=== PATIENT | female | born 1955 | race Caucasian/White ===

== ENCOUNTER 2016-08-18 17:47 | Emergency (ER) | payer BC ==
--- NOTE | 2016-08-18 20:15 | ED ---
General Adult HPI - General Chief complaint: Extremity Problem,Nontraumatic Stated complaint: leg pain, poss blood clot Time Seen by Provider: 08/18/16 19:48 Source: patient, family, RN notes reviewed Mode of arrival: ambulatory Limitations: no limitations - History of Present Illness Initial comments: Chief complaint history of present illness this is a 60-year-old female here with complaint of discomfort to her varicose vein on the left anterior surface. She had chronic varicosities over many years. He was talkative areas vascular surgeons to suggest just that she use compression stockings. Is no bleeding. Just localized discomfort. - Related Data Home Medications Medication Instructions Recorded Confirmed Atorvastatin [Lipitor] 20 mg PO HS 10/08/15 08/18/16 Ibuprofen [Motrin] 800 mg PO TID PRN 10/08/15 08/18/16 Levothyroxine Sodium [Tirosint] 50 mcg PO QAM 10/08/15 08/18/16 Valsartan/Hydrochlorothiazide 1 tab PO DAILY 10/08/15 08/18/16 [Diovan Hct 80-12.5 mg Tablet] Verapamil HCl [Verapamil ER] 240 mg PO DAILY 10/08/15 08/18/16 Cholecalciferol [Vitamin D3] 5,000 unit PO DAILY 08/18/16 08/18/16 Glucosamine Sulfate 1,500 mg PO DAILY 08/18/16 08/18/16 Methylsulfonylmethane [MSM] 1,500 mg PO DAILY 08/18/16 08/18/16 Homer-3 Fatty Acids/Fish Oil [Fish 1 cap PO DAILY 08/18/16 08/18/16 Oil 1,000 mg Softgel] Turmeric Root Extract [Turmeric] 500 mg PO DAILY 08/18/16 08/18/16 Ubidecarenone [Co Q-10] 100 mg PO DAILY 08/18/16 08/18/16 Women's [employer] And 1 tab PO BID 08/18/16 08/18/16 Metabolism Allergies Allergy/AdvReac Type Severity Reaction Status Date / Time Iodinated Contrast Media - Allergy Anaphylaxis Verified 08/18/16 19:02 Oral and [Iodinated Contrast Media - IV Dye] Penicillins Allergy Unknown Verified 08/18/16 19:02 Childhood acetaminophen [From Vicodin] AdvReac dizzyness, Verified 08/18/16 19:02 flushed hydrocodone bitartrate AdvReac dizzyness, Verified 08/18/16 19:02 [From Vicodin] flushed Review of Systems ROS Statement: Those systems with pertinent positive or pertinent negative responses have been documented in the HPI. Review of systems patient has no other complaints of headache chest pain shortness breath GI/ problems at this time. All systems are reviewed. Past medical problems significant for COPD she still a smoker trying to stop. Hyperlipidemia, hypertension and hypothyroidism now and back and knee pain. 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 She's also had tonsillectomy. Patient's had partial thyroidectomy. Family history significant for colon cancer brother and cousin. She states she does get her frequent regular colonoscopies. . ALLERGIES include iodinated contrast material penicillin and hydrocodone. she does smoke strongly encouraged encouraged to stop. Denies alcohol use. The patient's ROS Other: All systems not noted in ROS Statement are negative. Past Medical History Past Medical History: COPD, Hyperlipidemia, Hypertension, Thyroid Disorder Additional Past Medical History / Comment(s): BACK AND KNEE PAIN History of Any Multi-Drug Resistant Organisms: None Reported Past Surgical History: Breast Surgery, Hysterectomy, Orthopedic Surgery, Tonsillectomy Additional Past Surgical History / Comment(s): RT KNEE ARTHROSCOPY, BREAST BIOPSYx2, PARTIAL THYROIDECTOMY Additional Past Anesthesia/Blood Transfusion Reaction / Comment(s): "GET'S REALLY DIZZY" HAD TO STAY LONGER IN POST OP Past Psychological History: No Psychological Hx Reported Smoking Status: Current every day smoker Past Alcohol Use History: Rare Additional Past Alcohol Use History / Comment(s): STARTED SMOKING AT AGE 16, ON AND OFF, 1PPD Past Drug Use History: None Reported General Exam - General Exam Comments Initial Comments: General: The patient is awake and alert, in no distress, and does not appear acutely ill. Complains of painful superficial varicosities right lower leg. Vital signs are temperature 97.8 pulse 70 her story 20 pulse ox 90% room air blood pressure 142/79. Elevated systolic noted. Patient be advised to follow-up with family physician. And continue her antihypertensive medications. The neck is supple, there is no tenderness or JVD. Cardiovascular: There is a regular rate and rhythm. No murmur, rub or gallop is appreciated. Respiratory: Lungs are clear to auscultation, respirations are non-labored, breath sounds are equal. No wheezes, stridor, rales, or rhonchi. Musculoskeletal: Patient has long-standing varicosities to both legs especially the right lower leg. All are superficial no evidence of any thrombosis. None are bleeding. Just tender. No evidence of DVT negative Homans sign. The patient will be advised to talk to a vascular surgeon for vein stripping. Limitations: no limitations Course Vital Signs 08/18/16 18:59 Temperature 97.8 F Pulse Rate 70 Respiratory 20 Rate Blood Pressure 142/79 O2 Sat by Pulse 98 Oximetry Medical Decision Making - Medical Decision Making Use cool compresses or warm compresses were makes you feel more comfortable. Continue with the ibuprofen. Stop smoking soon as he can. Follow-up with vascular surgery for evaluation of vein stripping. Disposition Clinical Impression: Superficial phlebitis of right leg Disposition: HOME SELF-CARE Condition: Stable Instructions: Superficial Thrombophlebitis (ED) Additional Instructions: Elevate compression stockings. Ibuprofen. Follow-up with vascular surgeon for evaluation for pain stripping. Time of Disposition: 20:15
[2016-08-18 20:20] VITALS: BP 133/75; PULSE 78; RESP 18; TEMP 98
== END 2016-08-18 20:27 | disposition home or self-care (01) ==
LOC: EC 17:47
DX: I80.01 Phlebitis and thrombophlebitis of superficial vessels of right lower extremity (principal); J44.9 Chronic obstructive pulmonary disease, unspecified; E78.5 Hyperlipidemia, unspecified; I10 Essential (primary) hypertension; E03.9 Hypothyroidism, unspecified; F17.200 Nicotine dependence, unspecified, uncomplicated; Z79.899 Other long term (current) drug therapy; Z91.041 Radiographic dye allergy status; Z88.0 Allergy status to penicillin; Z88.5 Allergy status to narcotic agent
CPT/HCPCS: 99282

== ENCOUNTER 2017-01-02 21:44 | Emergency (ER) | payer BC ==
[2017-01-03] MEDS ORDERED: IBUPROFEN 400 MG TAB PO STA (00:04)
[2017-01-03] MEDS ORDERED: OXYMETAZOLINE 0.05% NASL SPRAY 15 ML NASAL STA (00:04)
[2017-01-03] MEDS ORDERED: predniSONE 20 MG TAB PO STA (00:04)
--- NOTE | 2017-01-03 00:09 | ED ---
URI HPI - General Chief Complaint: Upper Respiratory Infection Stated Complaint: Congestion Time Seen by Provider: 01/02/17 23:55 Source: patient Mode of arrival: ambulatory Limitations: no limitations - History of Present Illness Initial Comments: This patient is a 61-year-old woman who presents to be evaluated for facial pressure, congestion, coughing. She states that she was in her usual state of health until Tuesday when she started developing some congestion and a little bit of drainage. She tried taking an antihistamine but things have not been helping. Today the facial pressure became severe so she decided to be seen here. Patient states that the pressure is currently moderate intensity it has improved from a 10 to 5. MD Complaint: cough, nasal congestion Onset/Timin -: days(s) Severity: moderate Quality: aching Consistency: constant Improves With: nothing Worsens With: nothing Associated Symptoms: nasal congestion, cough Treatments Prior to Arrival: other - Related Data Home Medications Medication Instructions Recorded Confirmed Atorvastatin [Lipitor] 20 mg PO HS 10/08/15 01/02/17 Ibuprofen [Motrin] 800 mg PO TID PRN 10/08/15 01/02/17 Levothyroxine Sodium [Tirosint] 50 mcg PO QAM 10/08/15 01/02/17 Valsartan/Hydrochlorothiazide 1 tab PO DAILY 10/08/15 01/02/17 [Diovan Hct 80-12.5 mg Tablet] Verapamil HCl [Verapamil ER] 240 mg PO DAILY 10/08/15 01/02/17 Albuterol Sulfate [Ventolin HFA] 01/02/17 Fluticasone/Salmeterol [Advair Hfa 2 puff INHALATION BID 01/02/17 01/02/17 115-21 Mcg Inhaler] Previous Rx's Medication Instructions Recorded Azithromycin [Zithromax Z-pack] 250 mg PO DIRECTED #6 tab 01/03/17 predniSONE 60 mg PO DAILY #30 tab 01/03/17 Allergies Allergy/AdvReac Type Severity Reaction Status Date / Time Iodinated Contrast Media - Allergy Anaphylaxis Verified 08/18/16 19:02 Oral and [Iodinated Contrast Media - IV Dye] Penicillins Allergy Unknown Verified 08/18/16 19:02 Childhood acetaminophen [From Vicodin] AdvReac dizzyness, Verified 08/18/16 19:02 flushed hydrocodone bitartrate AdvReac dizzyness, Verified 08/18/16 19:02 [From Vicodin] flushed Review of Systems ROS Statement: Those systems with pertinent positive or pertinent negative responses have been documented in the HPI. ROS Other: All systems not noted in ROS Statement are negative. Constitutional: Denies: fever, chills Eyes: Denies: eye pain, vision change ENT: Reports: congestion. Denies: ear pain, throat pain, dental pain, hearing loss, epistaxis Respiratory: Reports: cough. Denies: dyspnea, wheezes Cardiovascular: Denies: chest pain, palpitations Gastrointestinal: Denies: abdominal pain, vomiting Musculoskeletal: Denies: back pain Skin: Denies: rash Neurological: Reports: as per HPI, headache. Denies: weakness, numbness, paresthesias, confusion Past Medical History Past Medical History: COPD, Hyperlipidemia, Hypertension, Thyroid Disorder Additional Past Medical History / Comment(s): BACK AND KNEE PAIN History of Any Multi-Drug Resistant Organisms: None Reported Past Surgical History: Breast Surgery, Hysterectomy, Orthopedic Surgery, Tonsillectomy Additional Past Surgical History / Comment(s): RT KNEE ARTHROSCOPY, BREAST BIOPSYx2, PARTIAL THYROIDECTOMY Additional Past Anesthesia/Blood Transfusion Reaction / Comment(s): "GET'S REALLY DIZZY" HAD TO STAY LONGER IN POST OP Past Psychological History: No Psychological Hx Reported Smoking Status: Current every day smoker Past Alcohol Use History: Rare Past Drug Use History: None Reported General Exam Limitations: no limitations General appearance: alert, in no apparent distress Head exam: Present: atraumatic, normocephalic Eye exam: Present: normal appearance. Absent: scleral icterus, conjunctival injection ENT exam: Present: normal oropharynx, mucous membranes moist, other (Congestion terminal) Neck exam: Present: normal inspection, full ROM, lymphadenopathy. Absent: tenderness, meningismus Respiratory exam: Present: normal lung sounds bilaterally. Absent: respiratory distress, wheezes, rales, rhonchi, stridor Cardiovascular Exam: Present: regular rate, normal rhythm, normal heart sounds. Absent: systolic murmur, diastolic murmur, rubs, gallop GI/Abdominal exam: Present: soft. Absent: tenderness, guarding, rebound Extremities exam: Present: normal inspection, normal capillary refill. Absent: pedal edema, calf tenderness Neurological exam: Present: alert Skin exam: Present: warm, dry, intact, normal color. Absent: rash Course Vital Signs 01/02/17 22:02 Temperature 99.8 F H Pulse Rate 82 Respiratory 20 Rate Blood Pressure 136/73 O2 Sat by Pulse 97 Oximetry Disposition Clinical Impression: Sinusitis, Pneumonia Disposition: HOME SELF-CARE Condition: Good Instructions: Rhinosinusitis (ED), Pneumonia (ED) Prescriptions: Azithromycin [Zithromax Z-pack] 250 mg PO DIRECTED #6 tab predniSONE 60 mg PO DAILY #30 tab Referrals: Saloni Juárez MD [Primary Care Provider] - 1-2 days
--- NOTE | 2017-01-03 00:49 | XR ---
EXAM: XR Chest, 2 Views CLINICAL HISTORY: Reason: cough TECHNIQUE: Frontal and lateral views of the chest. COMPARISON: No relevant prior studies available. FINDINGS: Lungs: Mild opacity in the right middle lobe. Pleural space: Unremarkable. No pneumothorax. Heart: Unremarkable. No cardiomegaly. Mediastinum: Unremarkable. Bones/joints: Unremarkable. IMPRESSION: Mild opacity in the right middle lobe may be developing pneumonia.
[2017-01-03] MEDS ORDERED: AZITHROMYCIN 500 MG TAB PO STA (01:23)
[2017-01-03 01:37] VITALS: BP 118/62; PULSE 64; RESP 16; TEMP 98
== END 2017-01-03 01:35 | disposition home or self-care (01) ==
LOC: EC 21:44
DX: J18.9 Pneumonia, unspecified organism (principal); J32.9 Chronic sinusitis, unspecified; J44.9 Chronic obstructive pulmonary disease, unspecified; E78.5 Hyperlipidemia, unspecified; I10 Essential (primary) hypertension; E07.9 Disorder of thyroid, unspecified; F17.200 Nicotine dependence, unspecified, uncomplicated; Z88.0 Allergy status to penicillin; Z88.5 Allergy status to narcotic agent; Z91.041 Radiographic dye allergy status; Z79.51 Long term (current) use of inhaled steroids; Z79.899 Other long term (current) drug therapy
CPT/HCPCS: 99283; 71020; J7512

== ENCOUNTER → 2017-02-10 | Outpatient (CLI) | payer BC ==
--- NOTE | 2017-02-10 11:57 | MM ---
Reason for exam: follow-up at short interval from prior study. Last mammogram was performed 6 months ago. History: Patient is postmenopausal and is nulliparous. Family history of breast cancer in paternal grandmother at age 80. Benign stereotactic core biopsy of the left breast, July 2016. Took estrogen for 2 years. Physical Findings: Nurse did not find any significant physical abnormalities on exam. MG Diagnostic Mammo LT w CAD CC and MLO view(s) were taken of the left breast. Prior study comparison: July 29, 2016, mammogram. July 22, 2015, mammogram. There are scattered fibroglandular densities. Previous mammotome biopsy in the left breast. Asymmetric breast tissue in the left breast upper quadrant, stable. There is no discrete abnormality. These results were verbally communicated with the patient and result sheet given to the patient on 02/10/17. ASSESSMENT: Benign, BI-RAD 2 RECOMMENDATION: Routine screening mammogram of both breasts in 6 months. Back on schedule for July 2017.
== END | disposition home or self-care (01) ==
LOC: RADMAMWWP 11:04
PROVIDERS: ATTEND Surgery
DX: R92.8 Other abnormal and inconclusive findings on diagnostic imaging of breast (principal)

== ENCOUNTER → 2017-04-22 | Outpatient (CLI) | payer BC ==
[2017-04-22 10:47] LABS: Basophils # (A) 0.1 k/uL (0-0.2); Basophils % (A) 1 %; CH 30.3; Eosinophils # (A) 0.1 k/uL (0-0.7); Eosinophils % (A) 1 %; HCT 45.8 % (34.0-46.0); HDW 2.63; HGB 14.9 gm/dL (11.4-16.0); Luc % (Auto) 2; Lymphocytes # (A) 2.2 k/uL (1.0-4.8); Lymphocytes % (A) 24 %; MCHC 32.5 g/dL (31.0-37.0); MCV 92.3 fL (80.0-100.0); Mean Platelet Volume 7.6; Monocytes # (A) 0.4 k/uL (0-1.0); Monocytes % (A) 5 %; Neutrophils % (A) 67 %; RBC 4.96 m/uL (3.80-5.40); RDW 13.5 % (11.5-15.5); WBC (Perox) 9.38
[2017-04-22 10:53] LABS: ALT 42 U/L (9-52); AST 26 U/L (14-36); Alkaline Phosphatase 81 U/L (38-126); Anion Gap 11 mmol/L; Blood Urea Nitrogen 13 mg/dL (7-17); Calcium 9.9 mg/dL (8.4-10.2); Carbon Dioxide 25 mmol/L (22-30); Chloride 104 mmol/L (98-107); Cholesterol 253 mg/dL (<200); Glucose 109 mg/dL (74-99); HDL Cholesterol 60 mg/dL (40-60); Non-African American GFR(MDRD) >60 (>60 ml/min/1.73 sqM); Potassium 4.3 mmol/L (3.5-5.1); Sodium 140 mmol/L (137-145); Total Bilirubin 0.8 mg/dL (0.2-1.3); Total Protein 7.4 g/dL (6.3-8.2)
[2017-04-22 15:02] LABS: Hemoglobin A1C 6.1 % (4.2-6.1)
== END | disposition home or self-care (01) ==
LOC: LABWHC1 09:56
PROVIDERS: ATTEND Internal Medicine
DX: E78.5 Hyperlipidemia, unspecified (principal); I10 Essential (primary) hypertension
CPT/HCPCS: 36415; 80053; 80061; 83036; 84439; 84443; 85025

== ENCOUNTER → 2018-04-20 | Outpatient (CLI) | payer BC ==
--- NOTE | 2018-04-21 13:37 | MM ---
Reason for exam: screening (asymptomatic). Last mammogram was performed 1 year and 2 months ago. History: Patient is postmenopausal and is nulliparous. Family history of breast cancer in paternal grandmother at age 80. Benign stereotactic core biopsy of the left breast, July 2016. Took estrogen for 2 years. Physical Findings: A clinical breast exam by your physician is recommended on an annual basis and results should be correlated with mammographic findings. MG Screening Mammo w CAD Bilateral CC and MLO view(s) were taken. Prior study comparison: February 10, 2017, left breast MG diagnostic mammo LT w CAD. July 29, 2016, mammogram. There are scattered fibroglandular densities. There is a right anterior depth lower inner quadrant mass. No suspicious abnormality in the left breast. ASSESSMENT: Incomplete: need additional imaging evaluation, BI-RAD 0 RECOMMENDATION: Ultrasound of the right breast. [facility] will attempt to contact patient to return for ultrasound.
== END | disposition home or self-care (01) ==
LOC: RADMAMWWP 09:11
PROVIDERS: ATTEND Internal Medicine
DX: Z12.31 Encounter for screening mammogram for malignant neoplasm of breast (principal); Z80.3 Family history of malignant neoplasm of breast
CPT/HCPCS: 77067

== ENCOUNTER → 2018-05-01 | Outpatient (CLI) | payer BC ==
--- NOTE | 2018-05-01 11:35 | USB ---
Reason for exam: additional evaluation requested from abnormal screening. History: Patient is postmenopausal and is nulliparous. Family history of breast cancer in paternal grandmother at age 80. Benign stereotactic core biopsy of the left breast, July 2016. Took estrogen for 2 years. Physical Findings: Nurse did not find any significant physical abnormalities on exam. US Breast Workup Limited RT Right limited breast ultrasound including focal area of concern, retroareolar and axilla demonstrates no cystic or solid lesion seen. 6 month follow up recommended. Scanned 3-6 o'clock at the site of mammographic abnormality. These results were verbally communicated with the patient and result sheet given to the patient on 05/01/18. ASSESSMENT: Probably benign, BI-RAD 3 RECOMMENDATION: Follow-up diagnostic mammogram of the right breast in 6 months.
== END | disposition home or self-care (01) ==
LOC: RADUSWWP 09:49
PROVIDERS: ATTEND Internal Medicine
DX: R92.8 Other abnormal and inconclusive findings on diagnostic imaging of breast (principal)

== ENCOUNTER → 2018-05-08 | Outpatient (CLI) | payer BC ==
[2018-05-08 13:03] LABS: ALT 58 U/L (9-52); AST 32 U/L (14-36); Albumin 4.4 g/dL (3.5-5.0); Alkaline Phosphatase 62 U/L (38-126); Anion Gap 7 mmol/L; Blood Urea Nitrogen 16 mg/dL (7-17); Calcium 10.2 mg/dL (8.4-10.2); Carbon Dioxide 25 mmol/L (22-30); Chloride 106 mmol/L (98-107); Cholesterol 292 mg/dL (<200); Glucose 107 mg/dL (74-99); HDL Cholesterol 69 mg/dL (40-60); LDL Cholesterol,Calculated 163 mg/dL (0-99); Potassium 4.2 mmol/L (3.5-5.1); Sodium 138 mmol/L (137-145); Total Bilirubin 0.6 mg/dL (0.2-1.3); Total Protein 7.1 g/dL (6.3-8.2); Triglycerides 300 mg/dL (<150)
== END | disposition home or self-care (01) ==
LOC: LABWHC1 10:54
PROVIDERS: ATTEND Internal Medicine
DX: E78.5 Hyperlipidemia, unspecified (principal)
CPT/HCPCS: 36415; 80053; 80061

== ENCOUNTER 2018-05-11 21:58 | Inpatient (IN) | payer BC ==
[2018-05-11] MEDS ORDERED: SODIUM CHLORIDE 0.9% 1,000 ML IV STA (22:05)
--- NOTE | 2018-05-11 22:31 | ED ---
General Adult HPI - General Chief complaint: Chest Pain Stated complaint: CHEST PAIN Source: patient Mode of arrival: EMS Limitations: no limitations - History of Present Illness Initial comments: Dictation was produced using [employer] dictation software. please excuse any grammatical, word or spelling errors. Chief Complaint: 62-year-old female with past medical history of COPD , hyperlipidemia, hypertension, thyroid disease presents with chest pain. History of Present Illness: 62-year-old female presents with chest pain. Patient was a severe argument with her family she states that her symptoms started then. She then began expressing severe chest pain. Also has to going to her fingers. Reports that patient was tachycardic. They saw on prehospital EKG that she had H or for ablation rapid ventricular rate. Patient states the pain is much better with the nitroglycerin and aspirin that was given. Patient denies any extremity symptoms. Patient denies a history of coronary artery disease. The ROS documented in this emergency department record has been reviewed and confirmed by me. Those systems with pertinent positive or negative responses have been documented in the HPI. All other systems are other negative and/or noncontributory. - Related Data Home Medications Medication Instructions Recorded Confirmed Levothyroxine Sodium [Tirosint] 50 mcg PO QAM 10/08/15 05/11/18 Verapamil HCl [Verapamil ER] 240 mg PO DAILY 10/08/15 05/11/18 Aspirin EC [Ecotrin Low Dose] 81 mg PO DAILY 05/11/18 05/11/18 Cholecalciferol [Vitamin D3] 1,000 unit PO DAILY 05/11/18 05/11/18 Fenofibrate Nanocrystallized 145 mg PO DAILY 05/11/18 05/11/18 [Fenofibrate] Glucosam/Jadiel-Msm1/C/Keith/Bosw 1 tab PO DAILY 05/11/18 05/11/18 [Glucosamine-Chondroitin Tablet] Ibuprofen [Motrin] 800 mg PO TID PRN 05/11/18 05/11/18 Losartan-Hctz 50-12.5 mg [Hyzaar 1 tab PO DAILY 05/11/18 05/11/18 50-12.5] Magnesium 200 mg PO DAILY 05/11/18 05/11/18 Multivitamin,Therapeutic [Thera] 1 tab PO DAILY 05/11/18 05/11/18 [place]-3 Fatty Acids/Fish Oil [Fish 1 cap PO DAILY 05/11/18 05/11/18 Oil 1,000 mg Softgel] Vitamin B Complex 1 cap PO DAILY 05/11/18 05/11/18 Allergies Allergy/AdvReac Type Severity Reaction Status Date / Time Iodinated Contrast- Oral and Allergy Anaphylaxis Verified 05/11/18 22:45 IV Dye [Iodinated Contrast Media - IV Dye] Penicillins Allergy Unknown Verified 05/11/18 22:45 Childhood acetaminophen [From Vicodin] AdvReac dizzyness, Verified 05/11/18 22:45 flushed hydrocodone bitartrate AdvReac dizzyness, Verified 05/11/18 22:45 [From Vicodin] flushed Review of Systems ROS Statement: Those systems with pertinent positive or pertinent negative responses have been documented in the HPI. ROS Other: All systems not noted in ROS Statement are negative. Past Medical History Past Medical History: COPD, Hyperlipidemia, Hypertension, Thyroid Disorder Additional Past Medical History / Comment(s): BACK AND KNEE PAIN History of Any Multi-Drug Resistant Organisms: None Reported Past Surgical History: Breast Surgery, Hysterectomy, Orthopedic Surgery, Tonsillectomy Additional Past Surgical History / Comment(s): RT KNEE ARTHROSCOPY, BREAST BIOPSYx2, PARTIAL THYROIDECTOMY Additional Past Anesthesia/Blood Transfusion Reaction / Comment(s): "GET'S REALLY DIZZY" HAD TO STAY LONGER IN POST OP Past Psychological History: No Psychological Hx Reported Smoking Status: Current every day smoker Past Alcohol Use History: Rare Past Drug Use History: None Reported General Exam - General Exam Comments Initial Comments: PHYSICAL EXAM: General Impression: Alert and oriented x3, not in acute distress HEENT: Normocephalic atraumatic, extra-ocular movements intact, pupils equal and reactive to light bilaterally, mucous membranes moist. Cardiovascular: Tachycardic and irregular Chest: Lungs clear to auscultation bilaterally, no rhonchi, no wheeze, no rales Abdomen: Bowel sounds present, abdomen soft, non-tender, non-distended, no organomegaly Musculoskeletal: Pulses present and equal in all extremities, no peripheral edema Motor: Power 5/5 bilaterally, no focal deficits noted Neurological: CN II-XII grossly intact, no focal motor or sensory deficits noted Skin: Intact with no visualized rashes Psych: Normal affect and mood Limitations: no limitations Course Vital Signs 05/11/18 22:05 Temperature 97.4 F L Pulse Rate 133 H Respiratory 24 Rate Blood Pressure 138/97 O2 Sat by Pulse 97 Oximetry Medical Decision Making - Medical Decision Making ED course: 62-year-old female with multiple comorbidities presents with chest pain. Prehospital EKG shows atrial for ablation rapid ventricular rate. Repeat EKG showed A. fib with RVR. Vital signs upon arrival shows heart rate of 133, rest of vital signs within normal limits. She denies a history of atrial fibrillation. At this point is unclear when patient symptoms started. She states that she did feel a little symptomatic when she was in an argument today. This point it is not clear when her symptoms initially started. I also comfortable cardioverting her given that she would likely benefit from a MISTY to rule out atrial clot. She started on Coumadin and heparin.Laboratory evaluation obtained. CBC unremarkable. Coag panel is unremarkable. D-dimer is negative. Metabolic panel shows glucose of 146. Mild hypokalemia of 3.4. Cardiac enzymes are negative. Chest x-ray was obtained showing no acute processes. Patient be admitted to internal medicine of [facility]. Her breathing treatment. Patient evaluated by cardiology for further intervention. EKG Interpretation: A 12 lead EKG was obtained. It was interpreted by myself and attending physician. There is a P wave before every QRS complex. Rate is 119. Rhythm is H fibrillation with RVR, QRS 80, QTC 481. QT is not prolonged. No ST segment depression or elevation. - Lab Data Result diagrams: 05/11/18 22:29 05/11/18 22:29 Lab Results 05/11/18 05/11/18 05/11/18 Range/Units 22:29 22:29 22:29 WBC 7.8 (3.8-10.6) k/uL RBC 4.78 (3.80-5.40) m/uL Hgb 14.0 (11.4-16.0) gm/dL Hct 42.4 (34.0-46.0) % MCV 88.8 (80.0-100.0) fL MCH 29.4 (25.0-35.0) pg MCHC 33.1 (31.0-37.0) g/dL RDW 13.3 (11.5-15.5) % Plt Count 263 (150-450) k/uL Neutrophils % 60 % Lymphocytes % 31 % Monocytes % 4 % Eosinophils % 2 % Basophils % 1 % Neutrophils # 4.7 (1.3-7.7) k/uL Lymphocytes # 2.4 (1.0-4.8) k/uL Monocytes # 0.3 (0-1.0) k/uL Eosinophils # 0.2 (0-0.7) k/uL Basophils # 0.1 (0-0.2) k/uL Manual Slide Review Performed PT (9.0-12.0) sec INR (<1.2) APTT (22.0-30.0) sec D-Dimer (<0.60) mg/L FEU Sodium 138 (137-145) mmol/L Potassium 3.4 L (3.5-5.1) mmol/L Chloride 107 (98-107) mmol/L Carbon Dioxide 22 (22-30) mmol/L Anion Gap 9 mmol/L BUN 26 H (7-17) mg/dL Creatinine 0.68 (0.52-1.04) mg/dL Est GFR (CKD-EPI)AfAm >90 (>60 ml/min/1.73 sqM) Est GFR (CKD-EPI)NonAf >90 (>60 ml/min/1.73 sqM) Glucose 146 H (74-99) mg/dL Calcium 9.7 (8.4-10.2) mg/dL Magnesium 2.0 (1.6-2.3) mg/dL Total Bilirubin 0.5 (0.2-1.3) mg/dL AST 40 H (14-36) U/L ALT 60 H (9-52) U/L Alkaline Phosphatase 63 (38-126) U/L Total Creatine Kinase 86 (30-135) U/L CK-MB (CK-2) 0.8 (0.0-2.4) ng/mL CK-MB (CK-2) Rel Index 0.9 Troponin I 0.013 (0.000-0.034) ng/mL Total Protein 6.7 (6.3-8.2) g/dL Albumin 4.1 (3.5-5.0) g/dL 05/11/18 Range/Units 22:29 WBC (3.8-10.6) k/uL RBC (3.80-5.40) m/uL Hgb (11.4-16.0) gm/dL Hct (34.0-46.0) % MCV (80.0-100.0) fL MCH (25.0-35.0) pg MCHC (31.0-37.0) g/dL RDW (11.5-15.5) % Plt Count (150-450) k/uL Neutrophils % % Lymphocytes % % Monocytes % % Eosinophils % % Basophils % % Neutrophils # (1.3-7.7) k/uL Lymphocytes # (1.0-4.8) k/uL Monocytes # (0-1.0) k/uL Eosinophils # (0-0.7) k/uL Basophils # (0-0.2) k/uL Manual Slide Review PT 9.7 (9.0-12.0) sec INR 1.0 (<1.2) APTT 22.4 (22.0-30.0) sec D-Dimer 0.37 (<0.60) mg/L FEU Sodium (137-145) mmol/L Potassium (3.5-5.1) mmol/L Chloride (98-107) mmol/L Carbon Dioxide (22-30) mmol/L Anion Gap mmol/L BUN (7-17) mg/dL Creatinine (0.52-1.04) mg/dL Est GFR (CKD-EPI)AfAm (>60 ml/min/1.73 sqM) Est GFR (CKD-EPI)NonAf (>60 ml/min/1.73 sqM) Glucose (74-99) mg/dL Calcium (8.4-10.2) mg/dL Magnesium (1.6-2.3) mg/dL Total Bilirubin (0.2-1.3) mg/dL AST (14-36) U/L ALT (9-52) U/L Alkaline Phosphatase (38-126) U/L Total Creatine Kinase (30-135) U/L CK-MB (CK-2) (0.0-2.4) ng/mL CK-MB (CK-2) Rel Index Troponin I (0.000-0.034) ng/mL Total Protein (6.3-8.2) g/dL Albumin (3.5-5.0) g/dL Disposition Clinical Impression: New onset a-fib Disposition: ADMITTED IP TO THIS HOSP Condition: Fair Referrals: Saloni Juárez MD [Primary Care Provider] - 1-2 days Decision Time: 00:29
[2018-05-11] MEDS ORDERED: HEPARIN SODIUM,PORCINE 5,000 UNIT/ML 1 ML VIAL IV PRN ×2 (22:35→22:41)
[2018-05-11] MEDS ORDERED: HEPARIN SODIUM,PORCINE 10,000 UNIT/ML 1 ML VIAL IV ONE (22:35)
[2018-05-11 22:40] LABS: Basophils # (A) 0.1 k/uL (0-0.2); Basophils % (A) 1 %; Eosinophils # (A) 0.2 k/uL (0-0.7); Eosinophils % (A) 2 %; HCT 42.4 % (34.0-46.0); Lymphocytes # (A) 2.4 k/uL (1.0-4.8); Lymphocytes % (A) 31 %; MCH 29.4 pg (25.0-35.0); MCHC 33.1 g/dL (31.0-37.0); MCV 88.8 fL (80.0-100.0); Mean Platelet Volume 7.3; Monocytes # (A) 0.3 k/uL (0-1.0); Monocytes % (A) 4 %; Neutrophils # (A) 4.7 k/uL (1.3-7.7); Neutrophils % (A) 60 %; Platelet Count 263 k/uL (150-450); RBC 4.78 m/uL (3.80-5.40); RDW 13.3 % (11.5-15.5); WBC 7.8 k/uL (3.8-10.6)
[2018-05-11] MEDS ORDERED: HEPARIN SODIUM,PORCINE 5,000 UNIT/ML 1 ML VIAL IV ONE (22:41)
[2018-05-11] MEDS ORDERED: DILTIAZEM 50 MG in SODIUM CHLORIDE 0.9% 40 ML IV SCH (22:45)
[2018-05-11] MEDS ORDERED: HEPARIN SOD,PORK IN 0.45% NACL 25,000 UNIT in 0.45% NACL 1 500ML.BAG IV SCH ×2 (22:45)
[2018-05-11 22:52] LABS: ALT 60 U/L (9-52); AST 40 U/L (14-36); Albumin 4.1 g/dL (3.5-5.0); Alkaline Phosphatase 63 U/L (38-126); Anion Gap 9 mmol/L; Blood Urea Nitrogen 26 mg/dL (7-17); Calcium 9.7 mg/dL (8.4-10.2); Carbon Dioxide 22 mmol/L (22-30); Chloride 107 mmol/L (98-107); Glucose 146 mg/dL (74-99); Potassium 3.4 mmol/L (3.5-5.1); Sodium 138 mmol/L (137-145); Total Bilirubin 0.5 mg/dL (0.2-1.3); Total Protein 6.7 g/dL (6.3-8.2)
[2018-05-11 23:05] LABS: Creatine Kinase MB 0.8 ng/mL (0.0-2.4); Troponin I 0.013 ng/mL (0.000-0.034)
[2018-05-11 23:08] LABS: D-Dimer 0.37 mg/L FEU (<0.60); Partial Thromboplastin Time 22.4 sec (22.0-30.0); Prothrombin Time 9.7 sec (9.0-12.0)
--- NOTE | 2018-05-11 23:26 | XR ---
EXAMINATION TYPE: XR chest 2V DATE OF EXAM: 05/11/2018 COMPARISON: 04/22/2017 HISTORY: Chest pain TECHNIQUE: Frontal and lateral views of the chest are obtained. FINDINGS: Heart and mediastinum are normal. Lungs are clear. Diaphragm is normal. There are chest le ads. Bony thorax appears intact. IMPRESSION: Normal chest. No change.
[2018-05-12] MEDS ORDERED: NALOXONE 0.4 MG/ML 1 ML VIAL IV PRN (00:30)
[2018-05-12 03:02] VITALS: BMI 28.5
[2018-05-12 05:42] LABS: Basophils # (A) 0.1 k/uL (0-0.2); Basophils % (A) 1 %; Eosinophils # (A) 0.1 k/uL (0-0.7); Eosinophils % (A) 1 %; HCT 40.3 % (34.0-46.0); HGB 13.4 gm/dL (11.4-16.0); Lymphocytes # (A) 2.5 k/uL (1.0-4.8); Lymphocytes % (A) 28 %; MCH 29.8 pg (25.0-35.0); MCHC 33.3 g/dL (31.0-37.0); MCV 89.5 fL (80.0-100.0); Mean Platelet Volume 7.3; Monocytes # (A) 0.4 k/uL (0-1.0); Monocytes % (A) 5 %; Neutrophils # (A) 5.7 k/uL (1.3-7.7); Neutrophils % (A) 64 %; Platelet Count 263 k/uL (150-450); RDW 13.3 % (11.5-15.5); WBC 8.9 k/uL (3.8-10.6)
[2018-05-12] MEDS: SODIUM CHLORIDE 0.9% 1,000 ML IV SCH ×2 (06:24→06:57)
--- NOTE | 2018-05-12 08:21 | P.CRDCN ---
History of Present Illness Consult date: 05/12/18 Requesting physician: Urban Wu Consult reason: atrial fibrillation Chief complaint: Chest pain, palpitations, flushed feeling History of present illness: This is a 62-year-old female with history of hypertension, severe hyperlipidemia, COPD, nicotine dependence, hypothyroidism, family history of premature coronary artery disease, who presents to the hospital with symptoms of chest discomfort, palpitations, and flushed feeling. According to the patient, she was in the bad argument with her daughter, shortly thereafter developed midsternal chest discomfort that radiated over to the right side of her chest, apparently her fingers felt numb and tingly. She also felt palpitations at that time and felt extremely flushed for this reason EMS was called and the patient was brought to the hospital for further evaluation. Chest x-ray on arrival here was normal. EKG on arrival here showed atrial fibrillation with a heart rate of [address]-T wave changes noted. Blood pressure on arrival 138/90, heart rate 120, 97% on room air. The patient was given IV Cardizem and converted to normal sinus rhythm, remains in a normal sinus rhythm this morning. CBC is normal, d-dimer 0.3, sodium 138, potassium 3.4, BUN 26, creatinine 0.6. Initial troponin 0.03, subsequent troponin 0.242. AST 40, ALT 60. At the time of my examination this morning, patient is in a normal sinus rhythm, she denies any chest discomfort, no dizziness or lightheadedness, no palpitations. Past Medical History Past Medical History: Atrial Fibrillation, COPD, Hyperlipidemia, Hypertension, Thyroid Disorder Additional Past Medical History / Comment(s): BACK AND KNEE PAIN, new onset atrial fib History of Any Multi-Drug Resistant Organisms: None Reported Past Surgical History: Breast Surgery, Hysterectomy, Orthopedic Surgery, Tonsillectomy Additional Past Surgical History / Comment(s): RT KNEE ARTHROSCOPY, BREAST BIOPSYx2, PARTIAL THYROIDECTOMY Additional Past Anesthesia/Blood Transfusion Reaction / Comment(s): "GET'S REALLY DIZZY" HAD TO STAY LONGER IN POST OP Past Psychological History: No Psychological Hx Reported Smoking Status: Current every day smoker Past Alcohol Use History: Rare Additional Past Alcohol Use History / Comment(s): STARTED SMOKING AT AGE 16, ON AND OFF, 1PPD Past Drug Use History: None Reported - Past Family History Mother Family Medical History: Hypertension Additional Family Medical History / Comment(s): mitral valve repairs Medications and Allergies Home Medications Medication Instructions Recorded Confirmed Type Levothyroxine Sodium [Tirosint] 50 mcg PO QAM 10/08/15 05/11/18 History Verapamil HCl [Verapamil ER] 240 mg PO DAILY 10/08/15 05/11/18 History Aspirin EC [Ecotrin Low Dose] 81 mg PO DAILY 05/11/18 05/11/18 History Cholecalciferol [Vitamin D3] 1,000 unit PO DAILY 05/11/18 05/11/18 History Fenofibrate Nanocrystallized 145 mg PO DAILY 05/11/18 05/11/18 History [Fenofibrate] Glucosam/Jadiel-Msm1/C/Keith/Bosw 1 tab PO DAILY 05/11/18 05/11/18 History [Glucosamine-Chondroitin Tablet] Ibuprofen [Motrin] 800 mg PO TID PRN 05/11/18 05/11/18 History Losartan-Hctz 50-12.5 mg [Hyzaar 1 tab PO DAILY 05/11/18 05/11/18 History 50-12.5] Magnesium 200 mg PO DAILY 05/11/18 05/11/18 History Multivitamin,Therapeutic [Thera] 1 tab PO DAILY 05/11/18 05/11/18 History Dawson-3 Fatty Acids/Fish Oil [Fish 1 cap PO DAILY 05/11/18 05/11/18 History Oil 1,000 mg Softgel] Vitamin B Complex 1 cap PO DAILY 05/11/18 05/11/18 History Allergies Allergy/AdvReac Type Severity Reaction Status Date / Time Iodinated Contrast- Oral and Allergy Anaphylaxis Verified 05/11/18 22:45 IV Dye [Iodinated Contrast Media - IV Dye] Penicillins Allergy Unknown Verified 05/11/18 22:45 Childhood acetaminophen [From Vicodin] AdvReac dizzyness, Verified 05/11/18 22:45 flushed hydrocodone bitartrate AdvReac dizzyness, Verified 05/11/18 22:45 [From Vicodin] flushed Physical Exam Vitals: Vital Signs Temp Pulse Pulse Resp BP BP Pulse Ox 05/12/18 04:00 98.2 F 92 17 133/69 98 05/12/18 02:48 98.2 F 92 17 133/69 98 05/12/18 01:46 120 H 16 120/74 98 05/12/18 01:37 115 H 16 103/73 96 05/11/18 23:00 130 H 18 114/74 94 L 05/11/18 22:05 97.4 F L 133 H 24 138/97 97 Intake and Output 05/11/18 05/12/18 05/12/18 22:59 06:59 14:59 Intake Total 180.067 Balance 180.067 Intake: IV 10 Invasive Line 1 10 Intake, IV Titration 170.067 Amount Diltiazem 50 mg In Sodium 33.167 Chloride 0.9% 40 ml @ 5 MG/HR 5 mls/hr IV .Q10H JAYDA Rx#:[id number] Heparin Sod,Pork in 0.45% 136.9 NaCl 25,000 unit In 0.45 % NaCl 1 500ml.bag @ 10 UNITS/KG/HR 18.5 mls/hr IV .Q24H JAYDA Rx#: [id number] Other: Voiding Method Toilet # Voids 1 Weight 92.533 kg 92.9 kg PHYSICAL EXAMINATION: GENERAL: 62-year-old female in no acute distress at the time of my examination HEENT: Head is atraumatic, normocephalic. Pupils equal, round. Sclera anicteric. Conjunctiva are clear. Mucous membranes of the mouth are moist. Neck is supple. There is no elevated jugular venous pressure. No carotid bruit is heard. HEART EXAMINATION: Heart S1, S2 normal. No murmur or gallop heard. CHEST EXAMINATION: Lungs are clear to auscultation and precussion. No chest wall tenderness is noted on palpation or with deep breathing. ABDOMEN: Soft, nontender. Bowel sounds are heard. No organomegaly noted. EXTREMITIES: 2+ peripheral pulses with no evidence of peripheral edema and no calf tenderness noted. NEUROLOGIC patient is awake, alert and oriented x3 . Results 05/12/18 05:26 05/11/18 22:29 Cardiac Enzymes 05/11/18 05/11/18 05/12/18 Range/Units 22:29 22:29 05:26 AST 40 H (14-36) U/L CK-MB (CK-2) 0.8 (0.0-2.4) ng/mL Troponin I 0.013 0.242 H* (0.000-0.034) ng/mL Coagulation 05/11/18 05/12/18 Range/Units 22:29 05:26 PT 9.7 (9.0-12.0) sec APTT 22.4 32.7 H (22.0-30.0) sec CBC 05/11/18 05/12/18 Range/Units 22:29 05:26 WBC 7.8 8.9 (3.8-10.6) k/uL RBC 4.78 4.50 (3.80-5.40) m/uL Hgb 14.0 13.4 (11.4-16.0) gm/dL Hct 42.4 40.3 (34.0-46.0) % Plt Count 263 263 (150-450) k/uL Comprehensive Metabolic Panel 05/11/18 Range/Units 22:29 Sodium 138 (137-145) mmol/L Potassium 3.4 L (3.5-5.1) mmol/L Chloride 107 (98-107) mmol/L Carbon Dioxide 22 (22-30) mmol/L BUN 26 H (7-17) mg/dL Creatinine 0.68 (0.52-1.04) mg/dL Glucose 146 H (74-99) mg/dL Calcium 9.7 (8.4-10.2) mg/dL AST 40 H (14-36) U/L ALT 60 H (9-52) U/L Alkaline Phosphatase 63 (38-126) U/L Total Protein 6.7 (6.3-8.2) g/dL Albumin 4.1 (3.5-5.0) g/dL Current Medications Generic Name Dose Route Start Last Admin Trade Name Freq PRN Reason Stop Dose Admin Aspirin 81 mg 05/12/18 09:00 Aspirin PO DAILY JAYDA Heparin Sodium (Porcine) 0 unit 05/11/18 22:41 Heparin IV PER PROTOCOL PRN Low PTT Protocol Diltiazem HCl 50 mg/ Sodium 50 mls @ 5 mls/hr 05/11/18 22:45 05/12/18 05:35 Chloride IV 0 mg/hr .Q10H JAYDA 0 mls/hr Infusion 5 MG/HR Heparin Sodium/Sodium Chloride 500 mls @ 18.5 mls/hr 05/11/18 22:45 05/12/18 06:29 25,000 unit/ Sodium Chloride IV 13 units/kg/hr .Q24H JAYDA 24.05 mls/hr Titration Protocol 10 UNITS/KG/HR Sodium Chloride 1,000 mls @ 20 mls/hr 05/12/18 00:30 05/12/18 06:57 Saline 0.9% IV 20 mls/hr .Q24H JAYDA Administration Magnesium Oxide 200 mg 05/12/18 09:00 Mag-Ox PO DAILY JAYDA Naloxone HCl 0.2 mg 05/12/18 00:30 Narcan IV Q2M PRN Opioid Reversal Intake and Output 05/11/18 05/12/18 05/12/18 22:59 06:59 14:59 Intake Total 180.067 Balance 180.067 Intake: IV 10 Invasive Line 1 10 Intake, IV Titration 170.067 Amount Diltiazem 50 mg In Sodium 33.167 Chloride 0.9% 40 ml @ 5 MG/HR 5 mls/hr IV .Q10H JAYDA Rx#:[id number] Heparin Sod,Pork in 0.45% 136.9 NaCl 25,000 unit In 0.45 % NaCl 1 500ml.bag @ 10 UNITS/KG/HR 18.5 mls/hr IV .Q24H JAYDA Rx#: [id number] Other: Voiding Method Toilet # Voids 1 Weight 92.533 kg 92.9 kg 05/12/18 05:26 05/11/18 22:29 EKG Interpretations (text) EKG on admission showed atrial fibrillation with moderately rapid ventricular response and nonspecific ST-T wave changes Assessment and Plan Plan: Assessment and plan #1 atrial fibrillation with moderately rapid ventricular response, converted to normal sinus rhythm, paroxysmal, appears to be a new onset for the patient. #2 chest discomfort, could be secondary to the atrial fibrillation, troponins 0.013, 0.242. Need to rule out underlying coronary artery disease. #3 hypertension #4 hyperlipidemia #5 family history of premature coronary artery disease #6 COPD #7 nicotine dependence #8 hypothyroidism #9 mildly elevated AST and ALT #10 hypokalemia Plan We will obtain an echocardiogram with Doppler study as well as a TSH level and fasting lipid profile. Replace potassium. Discontinue IV Cardizem. Continue IV heparin as well as baby aspirin, start low-dose beta nicol. We will also initiate the patient on a statin, she states she was taking Lipitor in the past however her cholesterol and triglycerides remained extremely high and they switched her over to fenofibrate. We will obtain a third troponin value. Patient has been educated regarding the need anticoagulation for stroke prevention. Further recommendations to follow. DNP note has been reviewed, I agree with a documented findings and plan of care. Patient was seen and examined.
[2018-05-12 08:51] LABS: Cholesterol 274 mg/dL (<200); HDL Cholesterol 60 mg/dL (40-60); LDL Cholesterol,Calculated 157 mg/dL (0-99); Triglycerides 283 mg/dL (<150)
--- NOTE | 2018-05-12 11:46 | ECHOF ---
Referral Reason:afib MEASUREMENTS -------- HEIGHT: 162.6 cm WEIGHT: 92.5 kg BP: 120/64 RVIDd: 2.5 cm (< 3.3) IVSd: 1.1 cm (0.6 - 1.1) LVIDd: 4.8 cm (3.9 - 5.3) LVPWd: 1.2 cm (0.6 - 1.1) IVSs: 1.4 cm LVIDs: 3.7 cm LVPWs: 1.5 cm LA Diam: 3.4 cm (2.7 - 3.8) Ao Diam: 2.8 cm (2.0 - 3.7) AV Cusp: 2.0 cm (1.5 - 2.6) LA Diam: 3.5 cm (2.7 - 3.8) MV EXCURSION: 22.907 mm (> 18.000) MV EF SLOPE: 137 mm/s (70 - 150) EPSS: 0.3 cm MV E Des: 0.91 m/s MV DecT: 240 ms MV A Des: 0.69 m/s MV E/A Ratio: 1.31 RAP: 5.00 mmHg RVSP: 19.08 mmHg FINDINGS -------- Sinus rhythm. This was a technically adequate study. LV size, wall thickness and systolic function are normal, with an EF greater than 55%. The left aldo tricular size is normal. The right ventricle is normal in size. The left atrial size is normal. The right atrial size is normal. The aortic valve is trileaflet, and appears structurally normal. No aortic stenosis or regurgitation. Mild mitral regurgitation is present. Mild tricuspid regurgitation present. There is no evidence of pulmonary hypertension. The right v entricular systolic pressure, as measured by Doppler, is 19.08mmHg. There is no pulmonic regurgitation present. The aortic root size is normal. There is no pericardial effusion. CONCLUSIONS -------- 1. LV size, wall thickness and systolic function are normal, with an EF greater than 55%. 2. The left ventricular size is normal. 3. The right ventricle is normal in size. 4. The left atrial size is normal. 5. The right atrial size is normal. 6. The aortic valve is trileaflet, and appears structurally normal. No aortic stenosis or regurgitati on. 7. Mild mitral regurgitation is present. 8. Mild tricuspid regurgitation present. 9. There is no evidence of pulmonary hypertension. 10. The right ventricular systolic pressure, as measured by Doppler, is 19.08mmHg. 11. There is no pulmonic regurgitation present. 12. The aortic root size is normal. 13. There is no pericardial effusion. MILLING MACHINE OPERATOR: Ruth Robert RDCS
[2018-05-12] MEDS ORDERED: ASPIRIN 325 MG TAB PO STA (12:26)
[2018-05-12] MEDS ORDERED: SODIUM CHLORIDE 0.9% 1,000 ML in EMPTY BAG 1 BAG IV ONE (12:26)
[2018-05-12] MEDS ORDERED: ATORVASTATIN 80 MG TAB PO STA (12:26)
[2018-05-12] MEDS ORDERED: NITROGLYCERIN SL TABS 0.4 MG TAB SUBLINGUAL PRN (12:26)
[2018-05-12] MEDS ORDERED: ALPRAZolam 0.25 MG TAB PO PRN (12:26)
[2018-05-12] MEDS ORDERED: ALPRAZolam 0.5 MG TAB PO PRN (12:26)
[2018-05-12] MEDS: MAGNESIUM OXIDE 400 MG TAB PO SCH (12:52)
[2018-05-12] MEDS: METOPROLOL TARTRATE 25 MG TAB PO SCH ×2 (12:54→20:40)
[2018-05-12] MEDS: ASPIRIN 81 MG PO SCH (12:55)
[2018-05-12] MEDS ORDERED: methylPREDNISolone SOD SUCCI 125 MG/2 ML VIAL IVP ONE (13:44)
[2018-05-12] MEDS ORDERED: diphenhydrAMINE 50 MG/ML 1 ML VIAL IVP ONE (13:44)
[2018-05-12] MEDS ORDERED: LIDOCAINE 1% (PF) 10MG/ML VIAL SQ ONE (14:04)
[2018-05-12] MEDS ORDERED: IV FLUID CONTINUATION 1,000 ML IV ONE (14:05)
[2018-05-12] MEDS ORDERED: MIDAZOLAM 2 MG/2 ML VIAL IVP ONE (14:05)
[2018-05-12] MEDS ORDERED: VERAPAMIL SYRINGE (5 MG/10 ML) INTRAARTER ONE (14:05)
[2018-05-12] MEDS ORDERED: fentaNYL (PF) 50 MCG/ML 2 ML AMP IVP ONE (14:10)
[2018-05-12] MEDS ORDERED: IOPAMIDOL-370 125ML BTL INJ ONE (14:15)
[2018-05-12] MEDS ORDERED: SODIUM CHLORIDE 0.9% 1,000 ML IV SCH (14:30)
--- NOTE | 2018-05-12 14:37 | LTR ---
Date of Service: 05/12/2018 RE: Yvon Rodriguez Dear Dr. Juárez; Ms. Yvon Rodriguez was admitted to [facility] with atrial fibrillation with a rapid ventricular response, which seems to be new to her. Her cardiac enzymes were checked and came in to be slightly abnormal. Given her risk factor, I did perform a heart catheterization on her. The heart catheterization revealed calcified right and left coronary system with mild nonobstructive coronary artery disease only. I want to thank you for allowing us to participate in her care and please do not hesitate to call if you have any question or concern. Sincerely, Jr Solorzano MD [id number] / SRIKANTHN: [id number] /
--- NOTE | 2018-05-12 14:52 | CC ---
CARDIAC CATHETERIZATION REPORT DATE OF SERVICE: 05/12/2018 PERFORMING PHYSICIAN: Jr Solorzano MD. PROCEDURE PERFORMED: 1. Selective right and left coronary angiogram. 2. Left heart catheterization. INDICATION: This is a pleasant 62-year-old female patient who was admitted to the hospital with heart racing and fluttering and was diagnosed with atrial fibrillation with RVR subsequently converted to normal sinus mechanism. She underwent a workup which showed abnormal cardiac enzymes. Giving her risk factors including borderline diabetes, hypertension, dyslipidemia, and significant history of coronary artery disease, we recommended proceeding with a heart catheterization to rule out any severe underlying CAD. APPROACH: Right radial artery. COMPLICATION: None. LEVEL OF SEDATION: Moderate sedation length of 15 minutes. PROCEDURE DESCRIPTION: After obtaining an informed consent, the patient was brought to the cardiac labor relations director. The right radial artery was cannulated using micropuncture technique and a micropuncture wire passed easily, then I placed a 6-Jordanian sheath in the right radial artery. After that, I gave the patient 2 mg of verapamil IA and 10,000 units of heparin IV. I did selective right and left coronary angiogram using JR4 and JL3.5 catheters. Left heart catheterization was performed using JR4 catheter which flipped into the LV, then I did pullback across the aortic valve. The procedure was completed without any complication. SELECTIVE CORONARY ANGIOGRAM: 1. The right coronary artery is a large caliber vessel, it is a dominant vessel. It is angiographically normal. It bifurcates distally into PDA and PLV branches, both are angiographically normal. 2. The left main is angiographically normal. It bifurcates into the circumflex and left anterior descending artery. 3. The left circumflex is a large caliber vessel and it is a nondominant vessel. The proximal circumflex is normal. The mid circumflex is normal and gives rise into a large OM branch which bifurcates into 2 subbranches and the OM1 is angiographically normal. The left circumflex continues after that as a moderate caliber vessel in the AV groove and seems to be angiographically normal. 4. The LAD, the proximal LAD is angiographically normal. It gives rise into a medium- sized diagonal branch which appeared to be angiographically normal. The mid LAD is normal and gives rise into a second diagonal branch which appeared to be angiographically normal. The LAD distally is angiographically normal as well. HEMODYNAMICS: The left ventricular end-diastolic pressure was 10 mmHg and no gradient was identified across the aortic valve. CONCLUSION: 1. Mildly calcified right and left coronary system. 2. Normal coronary angiogram. POSTPROCEDURE MANAGEMENT: 1. Medical treatment. 2. Follow up with the patient. YOGI / LISA: [id number] /
[2018-05-12] MEDS ORDERED: IBUPROFEN 800 MG TAB PO PRN (16:20)
--- NOTE | 2018-05-12 17:13 | HP ---
HISTORY AND PHYSICAL DATE OF ADMISSION: 05/12/2018 DATE OF SERVICE: 05/12/2018 PRESENTING COMPLAINT: Short of breath. HISTORY OF PRESENTING COMPLAINT: This is a pleasant 62-year-old patient who follows with Dr. Juárez as a family doctor. Chronic stable medical conditions include hyperlipidemia, hypertension, hypothyroid and chronic back pain. The patient had gone to see her family doctor and the patient then realized that she was having these episodes where she was breaking out in a sweat, becoming dizzy, lightheaded, nearly passed out, unsteady; became very short of breath with chest pressure, and then presented to the ER. The patient was found to be in atrial fibrillation with rapid ventricular rate. Troponin went from 0.013 up to 0.242. Patient's LDL was 157. EKG did show atrial fibrillation with a rapid ventricular rate with ST-segment depression. Patient was put on IV heparin, and when I saw this patient she was getting ready for a cardiac catheterization. The patient has been smoking for quite a while. REVIEW OF SYSTEMS: CONSTITUTIONAL: Weak and tired. HEENT: As above. RESPIRATORY: Some wheezing, cough. CARDIOVASCULAR: Chest pressure as above. GASTROINTESTINAL: None. GENITOURINARY: None. MUSCULOSKELETAL: Arthritic pain in many joints. DERMATOLOGICAL: None. HEMATOLOGICAL: None. LYMPHATICS: None. PSYCHIATRY: Anxiety. NEUROLOGICAL: None. PAST MEDICAL HISTORY: 1. COPD. 2. Hyperlipidemia. 3. Hypertension. 4. Hypothyroid. 5. Arthritis. PAST SURGICAL HISTORY: 1. Breast surgery. 2. Hysterectomy. 3. Tonsillectomy. 4. Right knee arthroscopy. 5. Partial thyroidectomy. SOCIAL HISTORY: The patient has smoked a pack a day for close to 46 years. . FAMILY HISTORY: Hypertension, mitral valve repair. HOME MEDICATIONS: 1. Motrin 800 mg p.o. t.i.d. p.r.n. 2. Verapamil ER 240 mg a day. 3. Losartan/hydrochlorothiazide 50/12.5 one tablet p.o. daily. 4. Levothyroxine 50 mcg p.o. daily. 5. Tricor 145 mg a day. 6. Vitamin B complex 1 capsule p.o. daily. 7. Fish oil 1 capsule p.o. daily. 8. Multivitamin 1 tablet p.o. daily. 9. Magnesium 200 mg p.o. daily. 10.Glucosamine chondroitin 1 tablet p.o. daily. 11.Vitamin D3 1000 units p.o. daily. 12.Aspirin 81 mg p.o. daily. ALLERGIES: 1. IV CONTRAST DYE. 2. PENICILLIN. 3. VICODIN. PHYSICAL EXAMINATION: VITAL SIGNS ON PRESENTATION: Temperature 97.4, pulse 133, respiration 24, blood pressure 138/97, pulse ox 97% on room air. GENERAL APPEARANCE: Average build. Sitting up, anxious-appearing. EYES: Pupils equal. Conjunctivae normal. HEENT: External appearance of nose and ears normal. Oral cavity normal. NECK: JVD not raised. Mass not palpable. RESPIRATORY: Effort increased. LUNGS: Diminished breath sounds. Prolonged expiration. Wheezing. CARDIOVASCULAR: Heart sounds irregular. No edema. ABDOMEN: Soft, nontender. Liver and spleen not palpable. LYMPHATIC: No lymph node palpable in neck or axillae. PSYCHIATRY: Alert and oriented x3. Mood and affect anxious-appearing. NEUROLOGICAL: Pupils equal. Cranial nerves grossly intact. Power and sensation grossly intact. INVESTIGATIONS: White count 7.8, hemoglobin 14.0, potassium 3.4, BUN 26, creatinine 0.68. Troponin 0.013, 0.242, 0.171. LDL 157. TSH normal. EKG tracing, personally reviewed by me, shows atrial fibrillation, rate of 119, and ST- segment depression from leads V3 to V5 and some in the inferior leads. Chest x-ray film, personally reviewed by me, shows some cardiomegaly and no obvious infiltrate. Two-D echocardiogram shows EF 55%. ASSESSMENT: 1. Acute [id number] myocardial infarction in a patient with multiple cardiac risk factors. 2. New-onset atrial fibrillation with rapid ventricular rate. 3. Acute chronic obstructive pulmonary disease exacerbation in a current smoker. 4. Chronic nicotine dependence. Patient is a cigarette smoker. 5. Hyperlipidemia, uncontrolled. 6. Essential hypertension. 7. Hypothyroidism. 8. Chronic arthritis. PLAN: The patient was started on aspirin, IV heparin. Home medications are resumed. Patient was seen by Dr. Solorzano from Cardiology, who is taking the patient down for a cardiac catheterization. Will also start the patient on IV Solu-Medrol, nebulized bronchodilators. Home medications will be reassessed after cardiac catheterization. Care was discussed at length with the patient and family, including her at the bedside. SMOKING CESSATION COUNSELING: This was done with the patient at length. More than 3 minutes was spent on this. Patient will be given a nicotine patch. MMODL / IJN: [id number] /
--- NOTE | 2018-05-12 17:22 | P.CNPUL ---
History of Present Illness Consult date: 05/12/18 Reason for consult: dyspnea History of present illness: 2-year-old female patient, a smoker, who has been followed up in our office by Dr. Feliciano Almeida is known to have COPD. She also has a positive family history for premature only artery disease. The patient had an argument her daughter shortly after that she developed some chest pain and palpitations and she was getting increased shortness of breath. She felt palpitation and her heart was racing. She was feeling also flushed. At that point she decided to come in to the hospital. Chest x-ray was done and was within normal limits. EKG showed a new onset atrial fibrillation with rapid ventricular response and her heart rate was in the 120 range without any acute ST segment changes. She did have some mild troponin leak. Currently she is back to normal sinus rhythm after being treated with Cardizem drip for rate control. Her d-dimer was low. The rest of the blood work showed no acute abnormality is that a troponin of 0.03 and 0.2 respectively. She is feeling better already. She is less short of breath. She is on room air for now. No angina. She is known to have hypertension and hyperlipidemia and hyperlipidemia was not regularly treated and the patient has increased triglycerides and LDL levels. No nausea. No vomiting. No altered mentation. No DVT. No pulmonary embolism. Based on the orders factors, the patient underwent a cardiac catheterization the patient was found to have normal coronaries. Review of Systems Constitutional: Denies chills, Denies fever Eyes: denies blurred vision, denies bulging eye, denies decreased vision Ears: deny: decreased hearing, ear discharge, earache, tinnitus Ears, nose, mouth and throat: Denies headache, Denies sore throat Cardiovascular: Reports decreased exercise tolerance, Reports irregular heart beat, Reports palpitations, Reports shortness of breath Respiratory: Reports dyspnea Gastrointestinal: Denies abdominal pain, Denies diarrhea, Denies nausea, Denies vomiting Genitourinary: Reports as per HPI Menstruation: Reports as per HPI Musculoskeletal: Reports as per HPI Musculoskeletal: absent: ankle pain, ankle stiffness, ankle swelling Integumentary: Denies pruritus, Denies rash Neurological: Reports as per HPI Psychiatric: Reports as per HPI Endocrine: Reports as per HPI Hematologic/Lymphatic: Reports as per HPI Allergic/Immunologic: Reports as per HPI Past Medical History Past Medical History: Atrial Fibrillation, COPD, Hyperlipidemia, Hypertension, Thyroid Disorder Additional Past Medical History / Comment(s): BACK AND KNEE PAIN, new onset atrial fib History of Any Multi-Drug Resistant Organisms: None Reported Past Surgical History: Breast Surgery, Hysterectomy, Orthopedic Surgery, Tonsillectomy Additional Past Surgical History / Comment(s): RT KNEE ARTHROSCOPY, BREAST BIOPSYx2, PARTIAL THYROIDECTOMY Additional Past Anesthesia/Blood Transfusion Reaction / Comment(s): "GET'S REALLY DIZZY" HAD TO STAY LONGER IN POST OP Past Psychological History: No Psychological Hx Reported Smoking Status: Current every day smoker Past Alcohol Use History: Rare Additional Past Alcohol Use History / Comment(s): STARTED SMOKING AT AGE 16, ON AND OFF, 1PPD Past Drug Use History: None Reported - Past Family History Mother Family Medical History: Hypertension Additional Family Medical History / Comment(s): mitral valve repairs Medications and Allergies Home Medications Medication Instructions Recorded Confirmed Type Levothyroxine Sodium [Tirosint] 50 mcg PO QAM 10/08/15 05/11/18 History Verapamil HCl [Verapamil ER] 240 mg PO DAILY 10/08/15 05/11/18 History Aspirin EC [Ecotrin Low Dose] 81 mg PO DAILY 05/11/18 05/11/18 History Cholecalciferol [Vitamin D3] 1,000 unit PO DAILY 05/11/18 05/11/18 History Fenofibrate Nanocrystallized 145 mg PO DAILY 05/11/18 05/11/18 History [Fenofibrate] Glucosam/Jadiel-Msm1/C/Kieth/Bosw 1 tab PO DAILY 05/11/18 05/11/18 History [Glucosamine-Chondroitin Tablet] Ibuprofen [Motrin] 800 mg PO TID PRN 05/11/18 05/11/18 History Losartan-Hctz 50-12.5 mg [Hyzaar 1 tab PO DAILY 05/11/18 05/11/18 History 50-12.5] Magnesium 200 mg PO DAILY 05/11/18 05/11/18 History Multivitamin,Therapeutic [Thera] 1 tab PO DAILY 05/11/18 05/11/18 History [place]-3 Fatty Acids/Fish Oil [Fish 1 cap PO DAILY 05/11/18 05/11/18 History Oil 1,000 mg Softgel] Vitamin B Complex 1 cap PO DAILY 05/11/18 05/11/18 History Allergies Allergy/AdvReac Type Severity Reaction Status Date / Time Iodinated Contrast- Oral and Allergy Anaphylaxis Verified 05/11/18 22:45 IV Dye [Iodinated Contrast Media - IV Dye] Penicillins Allergy Unknown Verified 05/11/18 22:45 Childhood acetaminophen [From Vicodin] AdvReac dizzyness, Verified 05/11/18 22:45 flushed hydrocodone bitartrate AdvReac dizzyness, Verified 05/11/18 22:45 [From Vicodin] flushed Physical Exam Vitals: Vital Signs Temp Pulse Pulse Pulse Resp BP BP 05/12/18 14:50 49 L 117/75 05/12/18 14:35 45 L 110/67 05/12/18 12:00 52 L 124/67 05/12/18 08:00 98.5 F 54 L 54 L 117/65 05/12/18 04:00 98.2 F 92 17 133/69 05/12/18 02:48 98.2 F 92 17 133/69 05/12/18 01:46 120 H 16 120/74 05/12/18 01:37 115 H 16 103/73 05/11/18 23:00 130 H 18 114/74 05/11/18 22:05 97.4 F L 133 H 24 138/97 Pulse Ox 05/12/18 14:50 95 05/12/18 14:35 95 05/12/18 12:00 95 05/12/18 08:00 96 05/12/18 04:00 98 05/12/18 02:48 98 05/12/18 01:46 98 05/12/18 01:37 96 05/11/18 23:00 94 L 05/11/18 22:05 97 Intake and Output 05/12/18 05/12/18 05/12/18 06:59 14:59 22:59 Intake Total 180.067 170 Output Total 300 Balance 180.067 170 -300 Intake: IV 10 150 Invasive Line 1 10 Intake, IV Titration 170.067 20 Amount Diltiazem 50 mg In Sodium 33.167 Chloride 0.9% 40 ml @ 5 MG/HR 5 mls/hr IV .Q10H [facility] Rx#:[id number] Heparin Sod,Pork in 0.45% 136.9 NaCl 25,000 unit In 0.45 % NaCl 1 500ml.bag @ 10 UNITS/KG/HR 18.5 mls/hr IV .Q24H [facility] Rx#: [id number] Sodium Chloride 0.9% 1, 20 000 ml @ 100 mls/hr IV . Q10H [facility] Rx#:[id number] Output: Urine 300 Other: Voiding Method Toilet # Voids 1 1 # Bowel Movements 0 Weight 92.9 kg Appearance, comfortable no acute distress Head exam was generally normal. There was no scleral icterus or corneal arcus. Mucous membranes were moist. Neck was supple and without jugular venous distension, thyromegaly, or carotid bruits. Carotids were easily palpable bilaterally. There was no adenopathy. Lungs sounds are diminished otherwise clear. No significant wheezes or rhonchi or crackles. Cardiac exam revealed the PMI to be normally situated and sized. The rhythm was regular and no extrasystoles were noted during several minutes of auscultation. The first and second heart sounds were normal and physiologic splitting of the second heart sound was noted. There were no murmurs, rubs, clicks, or gallops. Abdominal exam revealed normal bowel sounds. The abdomen was soft, non-tender, and without masses, organomegaly, or appreciable enlargement of the abdominal aorta. Examination of the extremities revealed easily palpable radial, femoral and pedal pulses. There was no cyanosis, clubbing or edema. Examination of the skin revealed no evidence of significant rashes, suspicious appearing nevi or other concerning lesions. Results - Laboratory Findings CBC and BMP: 05/12/18 05:26 05/11/18 22:29 PT/INR, D-dimer PT 9.7 sec (9.0-12.0) 05/11/18 22:29 INR 1.0 (<1.2) 05/11/18 22:29 D-Dimer 0.37 mg/L FEU (<0.60) 05/11/18 22:29 Abnormal lab findings: Abnormal Labs 05/11/18 05/12/18 05/12/18 22:29 05:26 05:26 APTT 32.7 H Potassium 3.4 L BUN 26 H Glucose 146 H AST 40 H ALT 60 H Troponin I 0.242 H* Triglycerides Cholesterol LDL Cholesterol, Calc 05/12/18 05/12/18 05/12/18 05:26 08:27 12:50 APTT 32.9 H Potassium BUN Glucose AST ALT Troponin I 0.171 H* Triglycerides 283 H Cholesterol 274 H LDL Cholesterol, Calc 157 H 05/12/18 12:50 APTT Potassium BUN Glucose AST ALT Troponin I 0.116 H* Triglycerides Cholesterol LDL Cholesterol, Calc - Diagnostic Findings Chest x-ray: image reviewed Assessment and Plan Plan: Assessment 1 atrial fibrillation, new onset, converted and a currently the patient is back to normal sinus mechanism 2 acute chest pain with some minimal troponin leak, cardiac catheterization showing normal coronaries 3 COPD 4 hypertension 5 hyperlipidemia 6 smoker 7 hypothyroidism 8 premature history of coronary artery disease Plan Smoking cessation counseling was done. Results of the cardiac catheterization was noted. Cardiac rhythm is back to normal sinus mechanism. Treat hyperlipidemia with high dose Lipitor and that here. IV heparin can be discontinued. Optimize COPD with a combination of DuoNeb nebulized treatments and short course of prednisone burst taper will be given to this patient. We' ll continue to follow make further recommendations. Possible discharge in the next 24 hours. As far as the need for anticoagulation, this will be left up to cardiology. The patient's cardiac rhythm is sinus and the patient is on metoprolol. Thyroid function test within normal limits.
[2018-05-12 17:42] LABS: Glucose,Whole Blood 196 mg/dL (75-99)
[2018-05-12] MEDS: INSULIN ASPART 100 UNIT/ML 1 ML 10 ML VIAL SQ SCH (18:53)
[2018-05-12 20:30] LABS: Glucose,Whole Blood 197 mg/dL (75-99)
[2018-05-12] MEDS: BUDESONIDE 1 MG/2 ML NEBU INHALATION SCH (20:36)
[2018-05-12] MEDS: IPRATROPIUM-ALBUTEROL 3 ML NEB INHALATION SCH (20:36)
[2018-05-12] MEDS: EZETIMIBE 10 MG TAB PO SCH (20:39)
[2018-05-12] MEDS: NICOTINE 21MG/24HR PATCH TRANSDERM SCH (20:39)
[2018-05-12] MEDS: LOSARTAN-HCTZ 50-12.5 MG 1 EACH TAB PO SCH (20:40)
[2018-05-12] MEDS: VERAPAMIL SR 240 MG TABLET.ER PO SCH (20:40)
[2018-05-12] MEDS ORDERED: ATORVASTATIN 80 MG TAB PO SCH (21:00)
[2018-05-12] MEDS ORDERED: methylPREDNISolone SOD SUCCI 40 MG/ML 1 ML VIAL IV SCH (22:00)
[2018-05-13 06:15] LABS: Glucose,Whole Blood 128 mg/dL (75-99)
[2018-05-13] MEDS ORDERED: LEVOTHYROXINE 50 MCG TAB PO SCH (06:30)
[2018-05-13] MEDS: INSULIN ASPART 100 UNIT/ML 1 ML 10 ML VIAL SQ SCH ×2 (06:31→12:03)
[2018-05-13 06:46] LABS: Basophils % (A) 0 %; Eosinophils # (A) 0.1 k/uL (0-0.7); Eosinophils % (A) 1 %; HCT 42.1 % (34.0-46.0); HGB 13.9 gm/dL (11.4-16.0); Lymphocytes % (A) 17 %; MCH 29.6 pg (25.0-35.0); MCV 89.8 fL (80.0-100.0); Mean Platelet Volume 7.9; Monocytes # (A) 0.5 k/uL (0-1.0); Monocytes % (A) 4 %; Neutrophils # (A) 8.9 k/uL (1.3-7.7); Neutrophils % (A) 77 %; Platelet Count 307 k/uL (150-450); RBC 4.69 m/uL (3.80-5.40); RDW 13.4 % (11.5-15.5); WBC 11.5 k/uL (3.8-10.6)
[2018-05-13] MEDS ORDERED: NON-FORMULARY DRUG (Vitamin B Complex [Vitamin B Complex] 1 CAP) PO SCH (09:00)
[2018-05-13] MEDS ORDERED: NON-FORMULARY DRUG (Omega-3 Fatty Acids/Fish Oil [Fish Oil 1,000 Mg Softgel] 1 CAP) PO SCH (09:00)
[2018-05-13] MEDS ORDERED: CHOLECALCIFEROL 1,000 UNIT TAB PO SCH (09:00)
[2018-05-13] MEDS ORDERED: FENOFIBRATE 160 MG TAB PO SCH (09:00)
[2018-05-13] MEDS ORDERED: NON-FORMULARY DRUG (Glucosam/Chon-Msm1/C/Mang/Bosw [Glucosamine-Chondroitin Tablet] 1 TAB) PO SCH (09:00)
[2018-05-13] MEDS ORDERED: predniSONE 20 MG TAB PO SCH (09:00)
[2018-05-13] MEDS: IPRATROPIUM-ALBUTEROL 3 ML NEB INHALATION SCH ×4 (09:04→15:47)
[2018-05-13] MEDS: BUDESONIDE 1 MG/2 ML NEBU INHALATION SCH (09:04)
[2018-05-13] MEDS: NICOTINE 21MG/24HR PATCH TRANSDERM SCH (09:33)
[2018-05-13] MEDS: ASPIRIN 81 MG PO SCH (09:34)
[2018-05-13] MEDS: METOPROLOL TARTRATE 25 MG TAB PO SCH (09:34)
[2018-05-13] MEDS: MAGNESIUM OXIDE 400 MG TAB PO SCH (09:34)
[2018-05-13] MEDS: VERAPAMIL SR 240 MG TABLET.ER PO SCH (09:34)
[2018-05-13] MEDS: LOSARTAN-HCTZ 50-12.5 MG 1 EACH TAB PO SCH (09:34)
[2018-05-13] MEDS: EZETIMIBE 10 MG TAB PO SCH (09:35)
[2018-05-13 09:58] VITALS: TEMP 96.9
[2018-05-13] MEDS ORDERED: MULTIVITAMINS, THERA 1 EACH TAB PO SCH (12:00)
[2018-05-13 12:03] LABS: Glucose,Whole Blood 120 mg/dL (75-99)
[2018-05-13] MEDS ORDERED: APIXABAN 5 MG TAB PO SCH (12:15)
[2018-05-13 13:15] VITALS: BP 142/78; PULSE 46; RESP 17
--- NOTE | 2018-05-13 14:05 | P.PN ---
Subjective Progress Note Date: 05/13/18 This is a 62-year-old female with history of hypertension, severe hyperlipidemia, COPD, nicotine dependence, hypothyroidism, family history of premature coronary artery disease, who presents to the hospital with symptoms of chest discomfort, palpitations, and flushed feeling. According to the patient, she was in the bad argument with her daughter, shortly thereafter developed midsternal chest discomfort that radiated over to the right side of her chest, apparently her fingers felt numb and tingly. She also felt palpitations at that time and felt extremely flushed for this reason EMS was called and the patient was brought to the hospital for further evaluation. Chest x-ray on arrival here was normal. EKG on arrival here showed atrial fibrillation with a heart rate of [address]-T wave changes noted. Blood pressure on arrival 138/90, heart rate 120, 97% on room air. The patient was given IV Cardizem and converted to normal sinus rhythm, remains in a normal sinus rhythm this morning. CBC is normal, d-dimer 0.3, sodium 138, potassium 3.4, BUN 26, creatinine 0.6. Initial troponin 0.03, subsequent troponin 0.242. AST 40, ALT 60. At the time of my examination this morning, patient is in a normal sinus rhythm, she denies any chest discomfort, no dizziness or lightheadedness, no palpitations. 05/13/2018 Patient underwent a cardiac catheterization by Dr. Solorzano which revealed mildly calcified right and left coronary system. She was seen and examined this morning, doing well, denies any chest pain or difficulty in breathing. Remaining now in normal sinus rhythm. We do need to initiate anticoagulation on the patient, we will check regarding coverage in the meantime we will start the patient on Eliquis 5 mg one tablet by mouth twice a day. She may be able to be discharged home from our perspective to follow-up in the office with Dr. Bustos. Echocardiogram with Doppler study revealed a normal left ventricular systolic function. Objective - Vital Signs Vital signs: Vital Signs Temp 96.9 F L 05/13/18 08:20 Pulse 46 L 05/13/18 12:00 Resp 17 05/13/18 12:00 BP 142/78 05/13/18 12:00 Pulse Ox 97 05/13/18 12:00 Intake & Output 05/12/18 05/13/18 05/13/18 18:59 06:59 18:59 Intake Total 410 960 590 Output Total 300 0 1 Balance 110 960 589 Weight 94.4 kg Intake: IV 150 Intake, IV Titration 20 Amount Sodium Chloride 0.9% 1, 20 000 ml @ 100 mls/hr IV . Q10H [facility] Rx#:[id number] Oral 240 960 590 Output: Urine 300 0 1 Other: Voiding Method Toilet # Voids 1 2 # Bowel Movements 0 0 - Exam PHYSICAL EXAMINATION: GENERAL: 62-year-old female in no acute distress at the time of my examination HEENT: Head is atraumatic, normocephalic. Pupils equal, round. Sclera anicteric. Conjunctiva are clear. Mucous membranes of the mouth are moist. Neck is supple. There is no elevated jugular venous pressure. No carotid bruit is heard. HEART EXAMINATION: Heart S1, S2 normal. No murmur or gallop heard. CHEST EXAMINATION: Lungs are clear to auscultation and precussion. No chest wall tenderness is noted on palpation or with deep breathing. ABDOMEN: Soft, nontender. Bowel sounds are heard. No organomegaly noted. EXTREMITIES: 2+ peripheral pulses with no evidence of peripheral edema and no calf tenderness noted. Right radial site clean and dry, good distal pulse. NEUROLOGIC patient is awake, alert and oriented x3 - Labs CBC & Chem 7: 05/13/18 06:07 05/11/18 22:29 Labs: Abnormal Lab Results - Last 24 Hours (Table) 05/12/18 05/12/18 05/12/18 Range/Units 17:40 20:29 20:29 WBC (3.8-10.6) k/uL Neutrophils # (1.3-7.7) k/uL POC Glucose (mg/dL) 196 H 197 H (75-99) mg/dL Troponin I 0.049 H* (0.000-0.034) ng/mL 05/13/18 05/13/18 05/13/18 Range/Units 06:07 06:13 11:55 WBC 11.5 H (3.8-10.6) k/uL Neutrophils # 8.9 H (1.3-7.7) k/uL POC Glucose (mg/dL) 128 H 120 H (75-99) mg/dL Troponin I (0.000-0.034) ng/mL Assessment and Plan Plan: Assessment and plan #1 atrial fibrillation with moderately rapid ventricular response, converted to normal sinus rhythm, paroxysmal, appears to be a new onset for the patient. #2 chest discomfort, could be secondary to the atrial fibrillation, troponins 0.013, 0.242. Need to rule out underlying coronary artery disease. Status post cardiac catheterization which did not reveal any significant obstructive coronary artery disease #3 hypertension #4 hyperlipidemia #5 family history of premature coronary artery disease #6 COPD #7 nicotine dependence #8 hypothyroidism #9 mildly elevated AST and ALT #10 hypokalemia Plan Echocardiogram with Doppler study was obtained which revealed a normal left ventricular systolic function. Cardiac catheterization did not reveal any significant obstructive coronary artery disease. From cardiology's perspective , patient may be able to be discharged home today, we will initiate anticoagulation in the form of Eliquis 5 mg one tablet by mouth twice a day. Make a follow-up appointment in the office for the patient to see Dr. Bustos. DNP note has been reviewed, I agree with a documented findings and plan of care. Patient was seen and examined.
--- NOTE | 2018-05-13 15:45 | P.PN ---
Subjective Progress Note Date: 05/13/18 62-year-old female patient, a smoker, who has been followed up in our office by Dr. Feliciano Almeida is known to have COPD. She also has a positive family history for premature only artery disease. The patient had an argument her daughter shortly after that she developed some chest pain and palpitations and she was getting increased shortness of breath. She felt palpitation and her heart was racing. She was feeling also flushed. At that point she decided to come in to the hospital. Chest x-ray was done and was within normal limits. EKG showed a new onset atrial fibrillation with rapid ventricular response and her heart rate was in the 120 range without any acute ST segment changes. She did have some mild troponin leak. Currently she is back to normal sinus rhythm after being treated with Cardizem drip for rate control. Her d-dimer was low. The rest of the blood work showed no acute abnormality is that a troponin of 0.03 and 0.2 respectively. She is feeling better already. She is less short of breath. She is on room air for now. No angina. She is known to have hypertension and hyperlipidemia and hyperlipidemia was not regularly treated and the patient has increased triglycerides and LDL levels. No nausea. No vomiting. No altered mentation. No DVT. No pulmonary embolism. Based on the orders factors, the patient underwent a cardiac catheterization the patient was found to have normal coronaries. On 05/13/2018, the patient remains in normal sinus rhythm. She is free of any chest pain. She has no specific complaints. Coronaries are within normal limits as mentioned. No other significant events overnight. Her BP remains under good control. She has been placed on long-term anticoagulation with Eliquis per industrial cleaning technician recommendation. Objective - Vital Signs Vital signs: Vital Signs Temp 96.9 F L 05/13/18 08:20 Pulse 46 L 05/13/18 12:00 Resp 17 05/13/18 12:00 BP 142/78 05/13/18 12:00 Pulse Ox 97 05/13/18 12:00 Intake & Output 05/12/18 05/13/18 05/13/18 18:59 06:59 18:59 Intake Total 410 960 590 Output Total 300 0 1 Balance 110 960 589 Weight 94.4 kg Intake: IV 150 Intake, IV Titration 20 Amount Sodium Chloride 0.9% 1, 20 000 ml @ 100 mls/hr IV . Q10H [facility] Rx#:[id number] Oral 240 960 590 Output: Urine 300 0 1 Other: Voiding Method Toilet # Voids 1 2 # Bowel Movements 0 0 - Exam Appearance, comfortable no acute distress Head exam was generally normal. There was no scleral icterus or corneal arcus. Mucous membranes were moist. Neck was supple and without jugular venous distension, thyromegaly, or carotid bruits. Carotids were easily palpable bilaterally. There was no adenopathy. Lungs sounds are diminished otherwise clear. No significant wheezes or rhonchi or crackles. Cardiac exam revealed the PMI to be normally situated and sized. The rhythm was regular and no extrasystoles were noted during several minutes of auscultation. The first and second heart sounds were normal and physiologic splitting of the second heart sound was noted. There were no murmurs, rubs, clicks, or gallops. Abdominal exam revealed normal bowel sounds. The abdomen was soft, non-tender, and without masses, organomegaly, or appreciable enlargement of the abdominal aorta. Examination of the extremities revealed easily palpable radial, femoral and pedal pulses. There was no cyanosis, clubbing or edema. Examination of the skin revealed no evidence of significant rashes, suspicious appearing nevi or other concerning lesions. - Labs CBC & Chem 7: 05/13/18 06:07 05/11/18 22:29 Labs: Abnormal Lab Results - Last 24 Hours (Table) 05/12/18 05/12/18 05/12/18 Range/Units 17:40 20:29 20:29 WBC (3.8-10.6) k/uL Neutrophils # (1.3-7.7) k/uL POC Glucose (mg/dL) 196 H 197 H (75-99) mg/dL Troponin I 0.049 H* (0.000-0.034) ng/mL 05/13/18 05/13/18 05/13/18 Range/Units 06:07 06:13 11:55 WBC 11.5 H (3.8-10.6) k/uL Neutrophils # 8.9 H (1.3-7.7) k/uL POC Glucose (mg/dL) 128 H 120 H (75-99) mg/dL Troponin I (0.000-0.034) ng/mL Assessment and Plan Plan: Assessment 1 atrial fibrillation, new onset, converted and a currently the patient is back to normal sinus mechanism 2 acute chest pain with some minimal troponin leak, cardiac catheterization showing normal coronaries 3 COPD 4 hypertension 5 hyperlipidemia 6 smoker 7 hypothyroidism 8 premature history of coronary artery disease Plan Normal coronaries. Anticoagulation was started based on history of paroxysmal atrial fibrillation. We will pulmonary status is stable. We'll continue to follow her up in the office on a routine basis.
[2018-05-13] MEDS ORDERED: METOPROLOL TARTRATE 25 MG TAB PO SCH (16:00)
--- NOTE | 2018-05-14 09:12 | DS ---
DISCHARGE SUMMARY DATE OF ADMISSION: 05/12/2018 DATE OF DISCHARGE: 05/13/2018. FINAL DIAGNOSES: 1. New onset atrial fibrillation with rapid ventricular rate causing troponin leak. 2. There is no acute ST elevation myocardial infarction. 3. Acute chronic obstructive pulmonary disease exacerbation in a current smoker. 4. Chronic nicotine dependence, the patient is a cigarette smoker. 5. Hyperlipidemia uncontrolled. 6. Essential hypertension. 7. Hypothyroidism. 8. Chronic osteoarthritis. HOSPITAL COURSE: This pleasant patient presented with an episode of breaking out in a sweat, dizzy, lightheaded, nearly passed out, found to be in atrial fibrillation with rapid ventricular rate. Troponin did started peaking up. LDL came back at 157. Initially patient was taken to cardiac catheterization, found to have normal coronaries. It is now felt the troponin leak was from atrial fibrillation with rapid ventricular rate. 2D echocardiogram showed EF of 55%. The patient also had COPD exacerbation. CONSULTATION: Dr. Vera from Pulmonary. Dr. Solorzano from Cardiology who also did a cardiac catheterization. PHYSICAL EXAMINATION: VITAL SIGNS: Temperature 96.9, pulse 46, respirations 17, blood pressure 142/78, pulse ox 97% on room air. LUNGS: Decreased breath sounds. CARDIOVASCULAR: 1st and 2nd sounds normal. LAB: Hemoglobin 13.9. LDL 157. Today, spoke at length with the patient and the . Questions were answered. Discussion and discharge planning more than 35 minutes. DISCHARGE MEDICATIONS: 1. 50 mcg p.o. daily. 2. Aspirin 81 mg p.o. daily. 3. Vitamin D3 1000 units p.o. daily. 4. Tricor 145 mg p.o. daily. 5. Glucosamine chondroitin 1 tablet p.o. daily. 6. Hyzaar 50/12.5 one tab p.o. daily. 7. Magnesium 200 mg p.o. daily. 8. Multivitamin 1 tablet p.o. daily. 9. Fish oil. 10.Vitamin B complex 1 capsule p.o. daily. 11.Ventolin HFA 1-2 puffs q.6h p.r.n. 12.Eliquis 5 mg p.o. b.i.d. 13.Lipitor 80 mg at bedtime. 14.Zetia 10 mg p.o. daily. 15.Atrovent HFA 2 puffs q.i.d. 16.Lopressor 25 mg p.o. t.i.d. 17.Nicotine 21 mg patch. 18.Prednisone taper. FOLLOWUP: Follow up with Dr. Juárez in 1 week. Follow up with Dr. Solorzano in one week. Copy to Dr. Juárez. MMODL / IJN: [id number] /
== END 2018-05-13 16:44 | disposition home or self-care (01) | DRG 287 ==
LOC: EC 21:58 → 3SCARD 05-12 00:30
PROVIDERS: ADMIT Hospitalist; ATTEND Hospitalist
PROC: B2111ZZ Fluoroscopy of Multiple Coronary Arteries using Low Osmolar Contrast (ICD-10-PCS; 2018-05-12)
PROC: 4A023N7 Measurement of Cardiac Sampling and Pressure, Left Heart, Percutaneous Approach (ICD-10-PCS; principal; 2018-05-12 13:40)
DX: I48.0 Paroxysmal atrial fibrillation (principal); J44.1 Chronic obstructive pulmonary disease with (acute) exacerbation; E89.0 Postprocedural hypothyroidism; E78.5 Hyperlipidemia, unspecified; E87.6 Hypokalemia; F17.210 Nicotine dependence, cigarettes, uncomplicated; G89.29 Other chronic pain; I10 Essential (primary) hypertension; I25.10 Atherosclerotic heart disease of native coronary artery without angina pectoris; M19.90 Unspecified osteoarthritis, unspecified site; R73.03 Prediabetes; Z79.82 Long term (current) use of aspirin; Z79.899 Other long term (current) drug therapy; Z79.890 Hormone replacement therapy; Z82.49 Family history of ischemic heart disease and other diseases of the circulatory system; Z82.5 Family history of asthma and other chronic lower respiratory diseases; Z90.710 Acquired absence of both cervix and uterus; Z71.6 Tobacco abuse counseling; M54.9 Dorsalgia, unspecified; Z88.5 Allergy status to narcotic agent; Z88.0 Allergy status to penicillin; Z91.041 Radiographic dye allergy status; R07.9 Chest pain, unspecified
CPT/HCPCS: 36415; 71046; 80053; 80061; 82550; 82553; 83735; 84443; 84484; 85025; 85379; 85610; 85730; 93005; 93306; 93458; 94640; 96365; 96366; 96376; 99285

== ENCOUNTER → 2018-07-26 | Outpatient (CLI) | payer BC ==
[2018-07-26 15:00] LABS: Appearance,Urine Cloudy (Clear); Bilirubin,Urine Negative (Negative); Blood,Urine Negative (Negative); Color,Urine Yellow; Glucose,Urine (UA) Negative (Negative); Hyaline Casts,Urine 2 /lpf (0-2); Ketones,Urine Negative (Negative); Leukocyte Esterase,Urine Negative (Negative); Mucus,Urine Occasional /hpf; Nitrite,Urine Negative (Negative); PH, Urine 5.5 (5.0-8.0); Protein,Urine 1+ (Negative); RBC,Urine 6 /hpf (0-5); Specific Gravity,Urine 1.021 (1.001-1.035); Squamous Epithelial Cell,Urine <1 /hpf (0-4); WBC,Urine 3 /hpf (0-5)
== END | disposition home or self-care (01) ==
LOC: LABWHC1 13:49
PROVIDERS: ATTEND Internal Medicine
DX: N39.0 Urinary tract infection, site not specified (principal)
CPT/HCPCS: 81001; 87086

== ENCOUNTER → 2018-08-16 | Outpatient (CLI) | payer BC ==
[2018-08-16 14:11] LABS: Basophils % (A) 0 %; Eosinophils % (A) 0 %; HCT 40.6 % (34.0-46.0); HGB 13.3 gm/dL (11.4-16.0); Lymphocytes # (A) 1.1 k/uL (1.0-4.8); Lymphocytes % (A) 13 %; MCH 29.9 pg (25.0-35.0); MCHC 32.7 g/dL (31.0-37.0); MCV 91.2 fL (80.0-100.0); Mean Platelet Volume 6.8; Monocytes # (A) 0.1 k/uL (0-1.0); Monocytes % (A) 1 %; Neutrophils % (A) 85 %; Platelet Count 281 k/uL (150-450); RBC 4.45 m/uL (3.80-5.40); RDW 13.4 % (11.5-15.5); WBC 8.2 k/uL (3.8-10.6)
[2018-08-16 14:28] LABS: Anion Gap 10 mmol/L; Blood Urea Nitrogen 18 mg/dL (7-17); Calcium 10.6 mg/dL (8.4-10.2); Carbon Dioxide 26 mmol/L (22-30); Chloride 103 mmol/L (98-107); Glucose 153 mg/dL (74-99); Potassium 4.4 mmol/L (3.5-5.1); Sodium 139 mmol/L (137-145)
[2018-08-16 14:57] LABS: Erythrocyte Sedimentation Rate 4 mm/hr (0-20)
--- NOTE | 2018-08-16 15:44 | CT ---
EXAMINATION TYPE: CT brain wo/w con DATE OF EXAM: 08/16/2018 COMPARISON: None INDICATION: Headache DLP: 2142.4 mGycm, Automated exposure control for dose reduction was used. CONTRAST: 100 mL Isovue-300 CT of the brain is performed utilizing 3 mm thick sections through the posterior fossa and 3 mm thick sections through the remaining calvarium. Study is performed within 24 hours of arrival to the hosp [facility]. No abnormal hyperdensity is present to suggest an acute intracranial hemorrhage. No mass lesion is evident. No acute infarcts are evident. Ventricles and sulci are appropriate for the patient age. Paranasal sinuses and mastoid air cells within the [id number] are clear. No abnormal enhancement is evident. IMPRESSIONS: 1. Normal pre and postcontrast CT brain.
[2018-08-16 23:30] LABS: Parathyroid Hormone Intact 25.2 pg/mL (14.0-72.0)
== END ==
LOC: RADCTMAIN 13:08
PROVIDERS: ATTEND Internal Medicine
DX: G44.009 Cluster headache syndrome, unspecified, not intractable (principal); R51 Headache; M31.6 Other giant cell arteritis
CPT/HCPCS: 80048; 85652; 85025; 86038; 83970; 70470; Q9967

== ENCOUNTER → 2018-08-31 | Outpatient (CLI) | payer BC | LOC: LABWHC1 17:13 | PROVIDERS: ATTEND Internal Medicine | DX: Z09 Encounter for follow-up examination after completed treatment for conditions other than malignant neoplasm (principal); Z20.5 Contact with and (suspected) exposure to viral hepatitis | CPT/HCPCS: 36415; 86803 ==

== ENCOUNTER → 2018-09-06 | Outpatient (CLI) | payer BC ==
--- NOTE | 2018-09-07 01:43 | XR ---
EXAMINATION TYPE: XR chest 2V DATE OF EXAM: 09/06/2018 COMPARISON: 05/11/2018 HISTORY: 62 year-old female left Pancoast tumor TECHNIQUE: Frontal and lateral views FINDINGS: The heart is normal size. Mild elongation thoracic aorta. Mild interstitial prominence has a chronic appearance. No consolidation or pleural effusion. No evident Pancoast tumor. IMPRESSION: No evidence of Pancoast tumor. Further clinical correlation is recommended. If persistent concern, co ntrast-enhanced CT can be considered. No acute cardiopulmonary process.
== END ==
LOC: RADXRMAIN 16:50
PROVIDERS: ATTEND Psychiatry & Neurology Neurology
DX: C34.12 Malignant neoplasm of upper lobe, left bronchus or lung (principal)
CPT/HCPCS: 71046

== ENCOUNTER → 2018-09-16 | Outpatient (CLI) | payer BC ==
[2018-09-16 17:31] LABS: LDL Cholesterol,Calculated 65.8 mg/dL (0.0-131.0); VLDL Calculation 24.2 mg/dL (5.00-40.00)
== END | disposition home or self-care (01) ==
LOC: LABWHC1 09:47
PROVIDERS: ATTEND Internal Medicine Interventional Cardiology
DX: E78.2 Mixed hyperlipidemia (principal)
CPT/HCPCS: 36415; 80061; 84450; 84460

== ENCOUNTER 2018-10-16 08:08 | Emergency (ER) | payer BC ==
[2018-10-16 08:16] VITALS: RESP 18; TEMP 98
[2018-10-16] MEDS ORDERED: LISINOPRIL 20 MG TAB PO STA (08:47)
[2018-10-16] MEDS ORDERED: METOPROLOL SUCCINATE (ER) 25 MG TAB.ER.24H PO STA (08:47)
--- NOTE | 2018-10-16 08:51 | ED ---
General Adult HPI - General Chief complaint: Recheck/Abnormal Lab/Rx Stated complaint: High blood pressure Time Seen by Provider: 10/16/18 08:19 Source: patient, family, RN notes reviewed Mode of arrival: wheelchair Limitations: no limitations - History of Present Illness Initial comments: Patient is a pleasant 62-year-old female presenting to the emergency Department with complaints of hypertension. Patient does provide a very long detailed history regarding events since April and blood pressure and medication changes. Patient takes her blood pressure several times per day. Patient has not taken her medication yet today. Blood pressure at home was as high as 173/98. Patient does have some associated palpitations however has been having those for at least 6 weeks. Patient also has been having headaches that have been chronic since April. Patient has had previous computed tomography scan and neurology evaluation. Patient is having a planned MRI. No recent change in headaches. - Related Data Home Medications Medication Instructions Recorded Confirmed Levothyroxine Sodium [Tirosint] 50 mcg PO QAM 10/08/15 10/16/18 Aspirin EC [Ecotrin Low Dose] 81 mg PO DAILY 05/11/18 10/16/18 Cholecalciferol [Vitamin D3] 1,000 unit PO DAILY 05/11/18 10/16/18 Fenofibrate Nanocrystallized 145 mg PO DAILY 05/11/18 10/16/18 [Fenofibrate] Glucosam/Jadiel-Msm1/C/Keith/Bosw 1 tab PO DAILY 05/11/18 10/16/18 [Glucosamine-Chondroitin Tablet] Magnesium 200 mg PO DAILY 05/11/18 10/16/18 Multivitamin,Therapeutic [Thera] 1 tab PO DAILY 05/11/18 10/16/18 [place]-3 Fatty Acids/Fish Oil [Fish 1 cap PO BID 05/11/18 10/16/18 Oil 1,000 mg Softgel] Vitamin B Complex 1 cap PO DAILY 05/11/18 10/16/18 Atorvastatin [Lipitor] 20 mg PO HS 10/16/18 10/16/18 Baclofen [Lioresal] 20 mg PO HS 10/16/18 10/16/18 Fluticasone/Salmeterol [Advair Hfa 2 puff INHALATION RT-BID PRN 10/16/18 10/16/18 115-21 Mcg Inhaler] Lisinopril [Zestril] 20 mg PO DAILY 10/16/18 10/16/18 Previous Rx's Medication Instructions Recorded Albuterol Inhaler [Ventolin Hfa 1 - 2 puff INHALATION RT-Q6H PRN 05/13/18 Inhaler] #1 inhaler Apixaban [Eliquis] 5 mg PO BID #30 tab 05/13/18 Ezetimibe [Zetia] 10 mg PO DAILY #30 tab 05/13/18 Metoprolol Tartrate [Lopressor] 25 mg PO TID #90 tab 05/13/18 Allergies Allergy/AdvReac Type Severity Reaction Status Date / Time Iodinated Contrast- Oral and Allergy Anaphylaxis Verified 10/16/18 08:52 IV Dye [Iodinated Contrast Media - IV Dye] Penicillins Allergy Unknown Verified 10/16/18 08:52 Childhood acetaminophen [From Vicodin] AdvReac dizzyness, Verified 10/16/18 08:52 flushed hydrocodone bitartrate AdvReac dizzyness, Verified 10/16/18 08:52 [From Vicodin] flushed Review of Systems ROS Statement: Those systems with pertinent positive or pertinent negative responses have been documented in the HPI. ROS Other: All systems not noted in ROS Statement are negative. Constitutional: Denies: fever Eyes: Denies: vision change ENT: Denies: ear pain Respiratory: Denies: cough Cardiovascular: Reports: palpitations Endocrine: Reports: fatigue Gastrointestinal: Denies: abdominal pain Genitourinary: Denies: dysuria Musculoskeletal: Denies: back pain Skin: Denies: rash Neurological: Reports: as per HPI Past Medical History Past Medical History: Atrial Fibrillation, COPD, Hyperlipidemia, Hypertension, Thyroid Disorder Additional Past Medical History / Comment(s): BACK AND KNEE PAIN, new onset atrial fib History of Any Multi-Drug Resistant Organisms: None Reported Past Surgical History: Breast Surgery, Hysterectomy, Orthopedic Surgery, Tonsillectomy Additional Past Surgical History / Comment(s): RT KNEE ARTHROSCOPY, BREAST BIOPSYx2, PARTIAL THYROIDECTOMY Additional Past Anesthesia/Blood Transfusion Reaction / Comment(s): "GET'S REALLY DIZZY" HAD TO STAY LONGER IN POST OP Past Psychological History: No Psychological Hx Reported Smoking Status: Former smoker Past Alcohol Use History: Rare Past Drug Use History: None Reported - Past Family History Mother Family Medical History: Hypertension Additional Family Medical History / Comment(s): mitral valve repairs General Exam Limitations: no limitations General appearance: alert, in no apparent distress Head exam: Present: normocephalic Eye exam: Present: normal appearance, PERRL, EOMI, other (There does appear to be minimal droop of the left eyelid which patient states has been chronic since April. Patient states she is seen neurology for this.). Absent: nystagmus ENT exam: Present: normal oropharynx Neck exam: Present: normal inspection Respiratory exam: Present: normal lung sounds bilaterally Cardiovascular Exam: Present: regular rate, normal rhythm GI/Abdominal exam: Present: soft. Absent: tenderness Extremities exam: Present: normal inspection. Absent: pedal edema, calf tenderness Neurological exam: Present: alert, CN II-XII intact. Absent: motor sensory deficit Psychiatric exam: Present: normal affect, normal mood Skin exam: Present: normal color Course Vital Signs 10/16/18 10/16/18 10/16/18 08:12 09:16 10:43 Temperature 98.0 F Pulse Rate 67 64 53 L Respiratory 18 18 18 Rate Blood Pressure 185/81 136/78 129/81 O2 Sat by Pulse 96 96 94 L Oximetry - Reevaluation(s) Reevaluation #1: 10/16/18 08:50 Patient states she also has had testing for temporal arteritis including sedimentation rate which came back at 4. EKG Findings - EKG Comments: EKG Findings:: Sinus bradycardia 55. FL 144. QRS 82. QT 4:30. QTC 411. Normal axis. Normal QRS. No acute ST change. Medical Decision Making - Medical Decision Making Patient reevaluated and resting comfortably in bed, symptom-free at this point. Blood pressure 129/81. Patient and family updated on results and need for follow-up. Patient states her droopiness of her eyelid has now been present at least 5-6 years. Patient has seen ophthalmology twice for this and now is seeing a eyelid specialist. - Lab Data Result diagrams: 10/16/18 08:55 10/16/18 08:55 Lab Results 10/16/18 10/16/18 10/16/18 Range/Units 08:55 08:55 08:55 WBC 6.5 (3.8-10.6) k/uL RBC 4.46 (3.80-5.40) m/uL Hgb 12.7 (11.4-16.0) gm/dL Hct 38.5 (34.0-46.0) % MCV 86.3 (80.0-100.0) fL MCH 28.5 (25.0-35.0) pg MCHC 33.1 (31.0-37.0) g/dL RDW 13.5 (11.5-15.5) % Plt Count 278 (150-450) k/uL Neutrophils % 61 % Lymphocytes % 27 % Monocytes % 6 % Eosinophils % 2 % Basophils % 1 % Neutrophils # 3.9 (1.3-7.7) k/uL Lymphocytes # 1.8 (1.0-4.8) k/uL Monocytes # 0.4 (0-1.0) k/uL Eosinophils # 0.1 (0-0.7) k/uL Basophils # 0.1 (0-0.2) k/uL PT 9.8 (9.0-12.0) sec INR 0.9 (<1.2) APTT 25.3 (22.0-30.0) sec Sodium 140 (137-145) mmol/L Potassium 4.1 (3.5-5.1) mmol/L Chloride 107 (98-107) mmol/L Carbon Dioxide 24 (22-30) mmol/L Anion Gap 9 mmol/L BUN 16 (7-17) mg/dL Creatinine 0.58 (0.52-1.04) mg/dL Est GFR (CKD-EPI)AfAm >90 (>60 ml/min/1.73 sqM) Est GFR (CKD-EPI)NonAf >90 (>60 ml/min/1.73 sqM) Glucose 153 H (74-99) mg/dL Calcium 9.9 (8.4-10.2) mg/dL Magnesium 1.8 (1.6-2.3) mg/dL Total Bilirubin 0.8 (0.2-1.3) mg/dL AST 39 H (14-36) U/L ALT 69 H (9-52) U/L Alkaline Phosphatase 64 (38-126) U/L Troponin I (0.000-0.034) ng/mL Total Protein 6.9 (6.3-8.2) g/dL Albumin 4.5 (3.5-5.0) g/dL TSH 1.250 (0.465-4.680) mIU/L Free T4 1.24 (0.78-2.19) ng/dL 10/16/18 Range/Units 08:55 WBC (3.8-10.6) k/uL RBC (3.80-5.40) m/uL Hgb (11.4-16.0) gm/dL Hct (34.0-46.0) % MCV (80.0-100.0) fL MCH (25.0-35.0) pg MCHC (31.0-37.0) g/dL RDW (11.5-15.5) % Plt Count (150-450) k/uL Neutrophils % % Lymphocytes % % Monocytes % % Eosinophils % % Basophils % % Neutrophils # (1.3-7.7) k/uL Lymphocytes # (1.0-4.8) k/uL Monocytes # (0-1.0) k/uL Eosinophils # (0-0.7) k/uL Basophils # (0-0.2) k/uL PT (9.0-12.0) sec INR (<1.2) APTT (22.0-30.0) sec Sodium (137-145) mmol/L Potassium (3.5-5.1) mmol/L Chloride (98-107) mmol/L Carbon Dioxide (22-30) mmol/L Anion Gap mmol/L BUN (7-17) mg/dL Creatinine (0.52-1.04) mg/dL Est GFR (CKD-EPI)AfAm (>60 ml/min/1.73 sqM) Est GFR (CKD-EPI)NonAf (>60 ml/min/1.73 sqM) Glucose (74-99) mg/dL Calcium (8.4-10.2) mg/dL Magnesium (1.6-2.3) mg/dL Total Bilirubin (0.2-1.3) mg/dL AST (14-36) U/L ALT (9-52) U/L Alkaline Phosphatase (38-126) U/L Troponin I <0.012 (0.000-0.034) ng/mL Total Protein (6.3-8.2) g/dL Albumin (3.5-5.0) g/dL TSH (0.465-4.680) mIU/L Free T4 (0.78-2.19) ng/dL - Radiology Data Radiology results: image reviewed (Chest x-ray shows no acute process) Disposition Clinical Impression: Hypertension Disposition: HOME SELF-CARE Condition: Stable Instructions (If sedation given, give patient instructions): Hypertension (ED) Additional Instructions: Please follow-up with primary care physician this week as planned as well as your neurologist. Please have MRI done tomorrow as planned. Return for uncontrolled blood pressure, worsening or change in symptoms, or other concerns. Is patient prescribed a controlled substance at d/c from ED?: No Referrals: Saloni Juárez MD [Primary Care Provider] - 1-2 days Time of Disposition: 11:01
--- NOTE | 2018-10-16 09:26 | XR ---
EXAMINATION TYPE: XR chest 2V DATE OF EXAM: 10/16/2018 COMPARISON: Chest x-ray September 06, 2018 HISTORY: Palpitation and chest pain. TECHNIQUE: Frontal and lateral views of the chest are obtained. FINDINGS: Overlying EKG leads are seen. There is no focal air space opacity, pleural effusion, or pn eumothorax seen. The cardiac silhouette size is within normal limits. The osseous structures are i ntact. IMPRESSION: No acute process. No significant change from prior.
[2018-10-16 09:36] LABS: Basophils # (A) 0.1 k/uL (0-0.2); Basophils % (A) 1 %; Eosinophils # (A) 0.1 k/uL (0-0.7); Eosinophils % (A) 2 %; HCT 38.5 % (34.0-46.0); HGB 12.7 gm/dL (11.4-16.0); Lymphocytes # (A) 1.8 k/uL (1.0-4.8); Lymphocytes % (A) 27 %; MCH 28.5 pg (25.0-35.0); MCHC 33.1 g/dL (31.0-37.0); MCV 86.3 fL (80.0-100.0); Mean Platelet Volume 7.3; Monocytes # (A) 0.4 k/uL (0-1.0); Monocytes % (A) 6 %; Neutrophils # (A) 3.9 k/uL (1.3-7.7); Neutrophils % (A) 61 %; Platelet Count 278 k/uL (150-450); RBC 4.46 m/uL (3.80-5.40); RDW 13.5 % (11.5-15.5); WBC 6.5 k/uL (3.8-10.6)
[2018-10-16 09:44] LABS: INR 0.9 (<1.2); Partial Thromboplastin Time 25.3 sec (22.0-30.0); Prothrombin Time 9.8 sec (9.0-12.0)
[2018-10-16 09:54] LABS: ALT 69 U/L (9-52); AST 39 U/L (14-36); Albumin 4.5 g/dL (3.5-5.0); Alkaline Phosphatase 64 U/L (38-126); Anion Gap 9 mmol/L; Blood Urea Nitrogen 16 mg/dL (7-17); Calcium 9.9 mg/dL (8.4-10.2); Carbon Dioxide 24 mmol/L (22-30); Chloride 107 mmol/L (98-107); Glucose 153 mg/dL (74-99); Magnesium 1.8 mg/dL (1.6-2.3); Potassium 4.1 mmol/L (3.5-5.1); Sodium 140 mmol/L (137-145); Total Bilirubin 0.8 mg/dL (0.2-1.3); Total Protein 6.9 g/dL (6.3-8.2)
[2018-10-16 10:10] LABS: T4, Free (Free Thyroxine) 1.24 ng/dL (0.78-2.19)
[2018-10-16 10:44] VITALS: BP 129/81; PULSE 53
== END 2018-10-16 11:14 | disposition home or self-care (01) ==
LOC: EC 08:08
DX: I10 Essential (primary) hypertension (principal); R00.2 Palpitations; R51 Headache; J44.9 Chronic obstructive pulmonary disease, unspecified; E78.5 Hyperlipidemia, unspecified; E07.9 Disorder of thyroid, unspecified; Z87.891 Personal history of nicotine dependence; Z88.0 Allergy status to penicillin; Z88.5 Allergy status to narcotic agent; Z88.6 Allergy status to analgesic agent; Z91.041 Radiographic dye allergy status; Z79.82 Long term (current) use of aspirin; Z79.890 Hormone replacement therapy; Z79.899 Other long term (current) drug therapy; Z87.39 Personal history of other diseases of the musculoskeletal system and connective tissue; Z86.79 Personal history of other diseases of the circulatory system; Z82.49 Family history of ischemic heart disease and other diseases of the circulatory system
CPT/HCPCS: 36415; 71046; 80053; 83735; 84439; 84443; 84481; 84484; 85025; 85610; 85730; 99283

== ENCOUNTER → 2018-10-17 | Outpatient (CLI) | payer BC ==
--- NOTE | 2018-10-17 12:27 | MR ---
EXAMINATION TYPE: MR brain wo/w con DATE OF EXAM: 10/17/2018 COMPARISON: CT brain 08/16/2018 HISTORY: Headache / Cerebral aneurysm, nonrupture, eye pain TECHNIQUE: Multiplanar, multisequence images of the brain and brainstem is performed without and with IV contras t, utilizing 10 mL intravenous Gadavist . FINDINGS: Diffusion weighted images demonstrate no evidence of a recent infarct or other diffusion ab normality. There is no extra-axial fluid collection or significant white matter signal abnormality, minimal periventricular, punctate frontal hyperintensities on inversion recovery and T2-weighted sequ ences are of questionable clinical significance. The ventricular system and cisternal spaces are nor mal in size and appearance. The brain volume is age appropriate. Midline structures demonstrate normal morphology. The craniocervical junction appears within normal limits. Post contrast images demonstrate questionable focus of decreased enhancement within the post erior pituitary. There is a focus in the left parietal lobe along the falx which shows isointense sig nal on T1, T2 and inversion recovery sequences and homogenous enhancement following contrast menstrua tion compatible with meningioma measuring approximately 14 mm in cephalad to caudal dimension by 8 mm in transverse dimension by 1 cm in anterior posterior dimension. The dural venous sinuses appear pat ent. The visualized sinuses are remarkable for inflammatory change in the ethmoid air cells, bilatera l maxillary sinuses, and the globes are intact. IMPRESSION: Sinus disease. There is a probable small frontal meningioma along the left lateral aspect of the anterior falx.
--- NOTE | 2018-10-17 12:43 | MR ---
EXAMINATION TYPE: MR angio head wo con DATE OF EXAM: 10/17/2018 COMPARISON: MR brain same date HISTORY: Headache / Cerebral aneurysm, nonrupture, eye pain TECHNIQUE: Time of flight images focusing on the [place] were performed without contrast. Th ree-dimensional reconstructions on an alternate workstation. FINDINGS: There is an 8 mm aneurysm extending at the medial aspect of the right internal carotid tracy ry at the level of the siphon which measures approximately 5 mm in anterior posterior dimension and w hich is noted in retrospect on the sagittal postcontrast dataset the brain MR same date. Internal carotid arteries are patent and show no evident dissection. Anterior and posterior circulati on is patent. Right vertebral artery is dominant. Left vertebral artery thought to terminate at the l evel of the posterior inferior cerebellar artery. IMPRESSION: Right internal carotid artery cerebral aneurysm. A Document Only message has been documented for Frankie Gould DO in the [employer] system on 10/17/2018 12:41 PM, Message ID [id number].
== END | disposition home or self-care (01) ==
LOC: RADMRIMAIN 09:44
PROVIDERS: ATTEND Psychiatry & Neurology Neurology
DX: I67.1 Cerebral aneurysm, nonruptured (principal); J32.0 Chronic maxillary sinusitis; J32.2 Chronic ethmoidal sinusitis
CPT/HCPCS: 70544; 70553; 36415; A9585

== ENCOUNTER → 2018-10-18 | Outpatient (CLI) | payer BC | END | disposition home or self-care (01) | LOC: LABWHC1 14:56 | PROVIDERS: ATTEND Internal Medicine | DX: H02.402 Unspecified ptosis of left eyelid (principal) | CPT/HCPCS: 36415; 83519 ==

== ENCOUNTER 2018-10-20 14:35 | Emergency (ER) | payer BC ==
[2018-10-20] MEDS ORDERED: SODIUM CHLORIDE 0.9% 1,000 ML IV STA (15:44)
[2018-10-20] MEDS ORDERED: LABETALOL SYRINGE 5 MG/ML IVP STA (15:45)
[2018-10-20] MEDS ORDERED: MORPHINE SULFATE 2 MG/ML SYRINGE IVP STA (16:14)
--- NOTE | 2018-10-20 16:18 | ED ---
Recheck HPI - General Chief Complaint: Recheck/Abnormal Lab/Rx Stated Complaint: Hypertension Time Seen by Provider: 10/20/18 15:15 Source: patient, RN notes reviewed, old records reviewed Mode of arrival: ambulatory - History of Present Illness Initial Comments: This is a 62-year-old female the ER for evaluation, she presents today for evaluation regarding recurrent headaches, elevated blood pressure and abnormal outpatient lab testing or MRI findings. Patient's level of her neurologist as well as her primary care doctor sent her to ER for evaluation regards to abnormal testing. Patient states she was found to have brain tumor as well as brain aneurysm. Otherwise patient has no evidence of trauma, also the difficulty elevated blood pressure. MD Complaint: other (abnormal MRI/MRA brain) -: month(s) (3) Returns Today for: Called Because of Abnormal Lab/Test (Abnormal MR brain) Symptoms Since Prior Visit: worsening pain (Headache) Context: planned re-check Associated Symptoms: other (Left eye ptosis,TEJEDA) - Related Data Home Medications Medication Instructions Recorded Confirmed Levothyroxine Sodium [Tirosint] 50 mcg PO QAM 10/08/15 10/16/18 Aspirin EC [Ecotrin Low Dose] 81 mg PO DAILY 05/11/18 10/16/18 Cholecalciferol [Vitamin D3] 1,000 unit PO DAILY 05/11/18 10/16/18 Fenofibrate Nanocrystallized 145 mg PO DAILY 05/11/18 10/16/18 [Fenofibrate] Glucosam/Jadiel-Msm1/C/Keith/Bosw 1 tab PO DAILY 05/11/18 10/16/18 [Glucosamine-Chondroitin Tablet] Magnesium 200 mg PO DAILY 05/11/18 10/16/18 Multivitamin,Therapeutic [Thera] 1 tab PO DAILY 05/11/18 10/16/18 [place]-3 Fatty Acids/Fish Oil [Fish 1 cap PO BID 05/11/18 10/16/18 Oil 1,000 mg Softgel] Vitamin B Complex 1 cap PO DAILY 05/11/18 10/16/18 Atorvastatin [Lipitor] 20 mg PO HS 10/16/18 10/16/18 Baclofen [Lioresal] 20 mg PO HS 10/16/18 10/16/18 Fluticasone/Salmeterol [Advair Hfa 2 puff INHALATION RT-BID PRN 10/16/18 10/16/18 115-21 Mcg Inhaler] Lisinopril [Zestril] 20 mg PO DAILY 10/16/18 10/16/18 Previous Rx's Medication Instructions Recorded Albuterol Inhaler [Ventolin Hfa 1 - 2 puff INHALATION RT-Q6H PRN 05/13/18 Inhaler] #1 inhaler Apixaban [Eliquis] 5 mg PO BID #30 tab 05/13/18 Ezetimibe [Zetia] 10 mg PO DAILY #30 tab 05/13/18 Metoprolol Tartrate [Lopressor] 25 mg PO TID #90 tab 05/13/18 Allergies Allergy/AdvReac Type Severity Reaction Status Date / Time Iodinated Contrast- Oral and Allergy Anaphylaxis Verified 10/20/18 14:41 IV Dye [Iodinated Contrast Media - IV Dye] Penicillins Allergy Unknown Verified 10/20/18 14:41 Childhood acetaminophen [From Vicodin] AdvReac dizzyness, Verified 10/20/18 14:41 flushed hydrocodone bitartrate AdvReac dizzyness, Verified 10/20/18 14:41 [From Vicodin] flushed Review of Systems ROS Statement: Those systems with pertinent positive or pertinent negative responses have been documented in the HPI. ROS Other: All systems not noted in ROS Statement are negative. Past Medical History Past Medical History: Atrial Fibrillation, COPD, Hyperlipidemia, Hypertension, Thyroid Disorder Additional Past Medical History / Comment(s): BACK AND KNEE PAIN, new onset atrial fib History of Any Multi-Drug Resistant Organisms: None Reported Past Surgical History: Breast Surgery, Hysterectomy, Orthopedic Surgery, Tonsillectomy Additional Past Surgical History / Comment(s): RT KNEE ARTHROSCOPY, BREAST BIOPSYx2, PARTIAL THYROIDECTOMY Additional Past Anesthesia/Blood Transfusion Reaction / Comment(s): "GET'S REALLY DIZZY" HAD TO STAY LONGER IN POST OP Past Psychological History: No Psychological Hx Reported Smoking Status: Former smoker Past Alcohol Use History: Rare Past Drug Use History: None Reported - Past Family History Mother Family Medical History: Hypertension Additional Family Medical History / Comment(s): mitral valve repairs General Exam - General Exam Comments Initial Comments: NIH of 0 General appearance: alert, in no apparent distress Head exam: Present: atraumatic, normocephalic, normal inspection Eye exam: Present: normal appearance, PERRL, EOMI. Absent: scleral icterus, conjunctival injection, periorbital swelling ENT exam: Present: normal exam, mucous membranes moist Neck exam: Present: normal inspection. Absent: tenderness, meningismus, lymphadenopathy Respiratory exam: Present: normal lung sounds bilaterally. Absent: respiratory distress, wheezes, rales, rhonchi, stridor Cardiovascular Exam: Present: regular rate, normal rhythm, normal heart sounds. Absent: systolic murmur, diastolic murmur, rubs, gallop, clicks GI/Abdominal exam: Present: soft, normal bowel sounds. Absent: distended, ten derness, guarding, rebound, rigid Extremities exam: Present: normal inspection, full ROM, normal capillary refill. Absent: tenderness, pedal edema, joint swelling, calf tenderness Back exam: Present: normal inspection Neurological exam: Present: alert, oriented X3, CN II-XII intact Psychiatric exam: Present: normal affect, normal mood Skin exam: Present: warm, dry, intact, normal color. Absent: rash Course Vital Signs 10/20/18 10/20/18 10/20/18 14:38 15:33 16:27 Temperature 98.2 F Pulse Rate 85 77 58 L Respiratory 20 16 16 Rate Blood Pressure 189/96 165/94 156/98 O2 Sat by Pulse 99 96 98 Oximetry - Reevaluation(s) Reevaluation #1: 10/20/18 16:26 Medical record reviewed occluding prior ER visits for similar complaint, outpatient imaging testing Reevaluation #2: 10/20/18 16:26 Spoke with family at length regarding findings, questions are answered Reevaluation #3: 10/20/18 16:26 Blood pressures improved, headache improved symptomatically therapy Reevaluation #4: 10/20/18 16:26 Patient family requesting transfer to [facility] - Consultations Consultation #1: Total Dr. Juárez regarding patient Consultation #2: Spoke with [facility] who is agreeable for transfer Medical Decision Making - Medical Decision Making 62 female the ER for evaluation coming in for evaluation of blood pressure and headache left eye ptosis and some vision changes. Patient does have a right ICA aneurysm 8 x 5 mm, patient also noted to have small frontal meningioma 14 x 8 mm patient's blood pressure is elevated, given blood pressure medication now improved. Patient be transferred for neurosurgery evaluation and blood pressure control - Lab Data Result diagrams: 10/20/18 16:13 Lab Results 10/20/18 Range/Units 16:13 WBC 9.6 (3.8-10.6) k/uL RBC 4.94 (3.80-5.40) m/uL Hgb 14.1 (11.4-16.0) gm/dL Hct 41.3 (34.0-46.0) % MCV 83.5 (80.0-100.0) fL MCH 28.6 (25.0-35.0) pg MCHC 34.2 (31.0-37.0) g/dL RDW 14.8 (11.5-15.5) % Plt Count 335 (150-450) k/uL Neutrophils % 73 % Lymphocytes % 18 % Monocytes % 5 % Eosinophils % 2 % Basophils % 1 % Neutrophils # 7.0 (1.3-7.7) k/uL Lymphocytes # 1.7 (1.0-4.8) k/uL Monocytes # 0.5 (0-1.0) k/uL Eosinophils # 0.2 (0-0.7) k/uL Basophils # 0.1 (0-0.2) k/uL - EKG Data -: EKG Interpreted by Me (Sinus rhythm rate of 83, OR 150, QRS 80, QTC 446) - Radiology Data Radiology results: report reviewed (Outpatient testing, MRI/MRA are reviewed, positive for meningioma and right internal carotid artery aneurysm), image reviewed Disposition Clinical Impression: H/O meningioma of the brain, Right internal carotid artery aneurysm, Hypertension Disposition: OTHER INSTITUTION NOT DEFINED Condition: Good Is patient prescribed a controlled substance at d/c from ED?: No Referrals: Saloni Juárez MD [Primary Care Provider] - 1-2 days - Out of Hospital Transfer - Req. Specs Out of Hospital Transfer - Requested Specifics: Other Emergency Center ([facility])
[2018-10-20 16:29] LABS: Basophils # (A) 0.1 k/uL (0-0.2); Basophils % (A) 1 %; Eosinophils # (A) 0.2 k/uL (0-0.7); Eosinophils % (A) 2 %; HCT 41.3 % (34.0-46.0); HGB 14.1 gm/dL (11.4-16.0); Lymphocytes # (A) 1.7 k/uL (1.0-4.8); Lymphocytes % (A) 18 %; MCH 28.6 pg (25.0-35.0); MCHC 34.2 g/dL (31.0-37.0); MCV 83.5 fL (80.0-100.0); Mean Platelet Volume 10.6; Monocytes # (A) 0.5 k/uL (0-1.0); Monocytes % (A) 5 %; Neutrophils % (A) 73 %; Platelet Count 335 k/uL (150-450); RBC 4.94 m/uL (3.80-5.40); RDW 14.8 % (11.5-15.5); WBC 9.6 k/uL (3.8-10.6)
[2018-10-20 16:40] LABS: INR 0.9 (<1.2); Partial Thromboplastin Time 24.3 sec (22.0-30.0); Prothrombin Time 9.6 sec (9.0-12.0)
[2018-10-20 16:41] LABS: ALT 67 U/L (9-52); AST 57 U/L (14-36); Albumin 4.9 g/dL (3.5-5.0); Alkaline Phosphatase 60 U/L (38-126); Anion Gap 13 mmol/L; Blood Urea Nitrogen 17 mg/dL (7-17); Calcium 10.5 mg/dL (8.4-10.2); Carbon Dioxide 24 mmol/L (22-30); Chloride 106 mmol/L (98-107); Glucose 140 mg/dL (74-99); Magnesium 2.1 mg/dL (1.6-2.3); Potassium 4.6 mmol/L (3.5-5.1); Sodium 143 mmol/L (137-145); Total Bilirubin 0.8 mg/dL (0.2-1.3); Total Protein 7.6 g/dL (6.3-8.2)
[2018-10-20 18:21] VITALS: BP 167/89; PULSE 76; RESP 16; TEMP 98
== END 2018-10-20 18:00 | disposition other institution (70) ==
LOC: EC 14:35
DX: I10 Essential (primary) hypertension (principal); I67.1 Cerebral aneurysm, nonruptured; D32.0 Benign neoplasm of cerebral meninges; I48.91 Unspecified atrial fibrillation; J44.9 Chronic obstructive pulmonary disease, unspecified; E78.5 Hyperlipidemia, unspecified; E07.9 Disorder of thyroid, unspecified; Z87.891 Personal history of nicotine dependence; Z82.49 Family history of ischemic heart disease and other diseases of the circulatory system; Z79.890 Hormone replacement therapy; Z79.82 Long term (current) use of aspirin; Z79.899 Other long term (current) drug therapy; Z91.041 Radiographic dye allergy status; Z88.0 Allergy status to penicillin; Z88.6 Allergy status to analgesic agent; Z88.5 Allergy status to narcotic agent
CPT/HCPCS: 36415; 93005; 80053; 83605; 83735; 84100; 84484; 85025; 85610; 85730; 99285; 96374; 96375; 96361 ×2; J2270

== ENCOUNTER → 2019-02-14 | Outpatient (CLI) | payer BC ==
--- NOTE | 2019-02-15 10:03 | MM ---
Reason for exam: follow-up at short interval from prior study. Last mammogram was performed 10 months ago. History: Patient is postmenopausal and is nulliparous. Family history of breast cancer in paternal grandmother at age 80. Benign stereotactic core biopsy of the left breast, July 2016. Took estrogen for 2 years. Physical Findings: Nurse did not find any significant physical abnormalities on exam. MG 3D Diag Mammo W/Cad RT CC and MLO view(s) were taken of the right breast. Prior study comparison: April 20, 2018, bilateral MG screening mammo w CAD. February 10, 2017, left breast MG diagnostic mammo LT w CAD. The breast tissue is heterogeneously dense. This may lower the sensitivity of mammography. The previously seen abnormality resolves on additional views and appears as fibroglandular tissue compatible with summation. No suspicious abnormality. Previousl finding does not persist. These results were verbally communicated with the patient and result sheet given to the patient on 02/14/19. ASSESSMENT: Negative, BI-RAD 1 RECOMMENDATION: Return to routine screening mammogram schedule for both breasts. Back on schedule for April 2019.
== END | disposition home or self-care (01) ==
LOC: RADMAMWWP 09:43
PROVIDERS: ATTEND Internal Medicine
CPT/HCPCS: 77061; 77065

== ENCOUNTER → 2019-05-18 | Outpatient (CLI) | payer BC ==
[2019-05-18 09:32] LABS: Basophils # (A) 0.1 k/uL (0-0.2); Basophils % (A) 1 %; Eosinophils # (A) 0.2 k/uL (0-0.7); Eosinophils % (A) 2 %; HCT 37.9 % (34.0-46.0); HGB 12.2 gm/dL (11.4-16.0); Lymphocytes # (A) 1.5 k/uL (1.0-4.8); Lymphocytes % (A) 24 %; MCH 27.1 pg (25.0-35.0); MCHC 32.3 g/dL (31.0-37.0); MCV 83.9 fL (80.0-100.0); Mean Platelet Volume 7.1; Monocytes # (A) 0.3 k/uL (0-1.0); Monocytes % (A) 5 %; Neutrophils # (A) 4.1 k/uL (1.3-7.7); Neutrophils % (A) 64 %; Platelet Count 293 k/uL (150-450); RBC 4.52 m/uL (3.80-5.40); RDW 14.7 % (11.5-15.5); WBC 6.4 k/uL (3.8-10.6)
[2019-05-18 17:44] LABS: ALT 41 U/L (8-44); AST 32 U/L (13-35); African American GFR (CKD) 105.4 (60.0-200.0); Albumin/Globulin Ratio 2.88 (1.60-3.17); Alkaline Phosphatase 64 U/L (41-126); BUN/Creat Ratio 32.86 Ratio (12.00-20.00); Bilirubin, Conjugated <0.20 mg/dL (0.20-0.40); Calcium 9.2 mg/dL (8.7-10.3); Carbon Dioxide 24.3 mmol/L (21.6-31.8); Chloride 108 mmol/L (96-109); Chol/HDL Ratio 2.56; Cholesterol 202 mg/dL (0-200); Globulin 1.6 g/dL (1.6-3.3); Glucose 108 mg/dL (70-110); LDL Cholesterol,Calculated 95.6 mg/dL (0.0-131.0); Sodium 141 mmol/L (135-145); Total Bilirubin 0.5 mg/dL (0.3-1.2); Total Protein 6.2 g/dL (6.2-8.2)
[2019-05-18 19:08] LABS: Hemoglobin A1C 6.2 % (4.0-6.0)
== END | disposition home or self-care (01) ==
LOC: LABWHC1 08:50
PROVIDERS: ATTEND Internal Medicine
DX: Z00.00 Encounter for general adult medical examination without abnormal findings (principal); I10 Essential (primary) hypertension; E78.5 Hyperlipidemia, unspecified; E11.9 Type 2 diabetes mellitus without complications; Z79.899 Other long term (current) drug therapy; E55.9 Vitamin D deficiency, unspecified; E03.9 Hypothyroidism, unspecified
CPT/HCPCS: 36415; 80053; 80061; 82248; 82306; 83036; 84439; 84443; 84480; 85025

== ENCOUNTER → 2019-06-19 | Outpatient (CLI) | payer BC ==
--- NOTE | 2019-06-19 15:53 | BD ---
EXAMINATION TYPE: Axial Bone Density DATE OF EXAM: 06/19/2019 COMPARISON: NONE CLINICAL HISTORY: Postmenopausal female. Height: 69.7 IN Weight: 217 LBS FRAX RISK QUESTIONS: History of Fracture in Adulthood: YES LEFT ELBOW AGE 63 RISK FACTORS HISTORY OF: Active: YES Postmenopausal woman: AGE 48 TOTAL HYST MEDICATIONS: Thyroid Medications: YES Which medication: Levothyroxine How Lon + YEARS Additional Medications: VIT D, LEVOTHYROXINE,MULTI VIT, ZETIA,FENOFIBRATE,METOPROLOL, LISINOPRIL HCTZ , ELIQUIS, EXAM MEASUREMENTS: Bone mineral densitometry was performed using the H.BLOOM System. Bone mineral density as measured about the Lumbar spine is: ----- L1-L4(G/cm2): 1.003 T Score Values are as follows: ----- L2: -2.2 ----- L3: -1.5 ----- L4: -0.5 ----- L1-L4: -1.5 Bone mineral density BASELINE Bone mineral density about the R hip (g/cm2): 1.142 Bone mineral density about the L hip (g/cm2): 1.043 T Score values are as follows: -----R Neck: 0.7 -----L Neck: 0.0 -----R Total: 0.1 -----L Total: 0.0 Bone mineral density BASELINE IMPRESSION: Osteopenia (T Score between -2.5 and -1) in the low back. There is slightly increased risk of fracture and the patient may be considered for treatment. Re-Screen 2-5 years. NOTE: T-SCORE=SD OF THE YOUNG ADULT MEAN.
--- NOTE | 2019-06-20 09:36 | MM ---
Reason for exam: screening (asymptomatic). Last mammogram was performed 4 months ago. History: Patient is postmenopausal and is nulliparous. Family history of breast cancer in paternal grandmother at age 80. Benign stereotactic core biopsy of the left breast, July 2016. Took estrogen for 2 years. Physical Findings: A clinical breast exam by your physician is recommended on an annual basis and results should be correlated with mammographic findings. MG 3D Screening Mammo W/Cad Bilateral CC and MLO view(s) were taken. Prior study comparison: February 14, 2019, right breast MG 3d diag mammo w/cad RT. April 20, 2018, bilateral MG screening mammo w CAD. There are scattered fibroglandular densities. There is no discrete abnormality. Left biopsy marker noted. ASSESSMENT: Negative, BI-RAD 1 RECOMMENDATION: Routine screening mammogram of both breasts in 1 year.
== END | disposition home or self-care (01) ==
LOC: RADMAMWWP 14:06
PROVIDERS: ATTEND Family Medicine
DX: Z12.31 Encounter for screening mammogram for malignant neoplasm of breast (principal); M85.88 Other specified disorders of bone density and structure, other site; Z78.0 Asymptomatic menopausal state
CPT/HCPCS: 77063; 77067; 77080

== ENCOUNTER 2019-08-27 18:09 | Inpatient (IN) | payer BC, MEDICARE ==
[2019-08-27] MEDS ORDERED: FAMOTIDINE 20 MG/2 ML VIAL IV STA (19:15)
[2019-08-27] MEDS ORDERED: SODIUM CHLORIDE 0.9% 1,000 ML IV STA (19:15)
[2019-08-27] MEDS ORDERED: methylPREDNISolone SOD SUCCI 125 MG/2 ML VIAL IV STA (19:15)
[2019-08-27] MEDS ORDERED: diphenhydrAMINE 50 MG/ML 1 ML VIAL IVP STA (19:15)
[2019-08-27 19:27] LABS: Basophils # (A) 0.1 k/uL (0-0.2); Basophils % (A) 1 %; Eosinophils # (A) 0.2 k/uL (0-0.7); Eosinophils % (A) 3 %; HCT 38.8 % (34.0-46.0); HGB 12.9 gm/dL (11.4-16.0); Lymphocytes # (A) 2.3 k/uL (1.0-4.8); Lymphocytes % (A) 30 %; MCHC 33.1 g/dL (31.0-37.0); MCV 84.5 fL (80.0-100.0); Mean Platelet Volume 8.1; Monocytes # (A) 0.4 k/uL (0-1.0); Monocytes % (A) 5 %; Neutrophils # (A) 4.3 k/uL (1.3-7.7); Neutrophils % (A) 58 %; Platelet Count 310 k/uL (150-450); RBC 4.59 m/uL (3.80-5.40); RDW 14.6 % (11.5-15.5); WBC 7.5 k/uL (3.8-10.6)
--- NOTE | 2019-08-27 19:44 | ED ---
General Adult HPI - General Chief complaint: Syncope Stated complaint: High blood pressure/chest pain Time Seen by Provider: 08/27/19 19:05 Source: patient, RN notes reviewed, old records reviewed Mode of arrival: ambulatory Limitations: no limitations - History of Present Illness Initial comments: 63-year-old female presenting with an episode of near syncope with pleural effusion. Patient states she was driving, felt that she was losing her vision b rajat to be quite blurry and that she nearly passed out. The symptoms only lasted seconds and she was able to recover normal vision and normal level of consciousness. She has been doing with intermittent headaches lasting several minutes at a time fluctuating throughout the day. His been an ongoing symptom for approximately one year. She had brain aneurysm coiling at [facility] in October 2018. She's had intermittent headaches since that time. She has hypertension, diabetes. She denies any chest pain but felt some chest tightness with this episode. No fever or chills. No recent illness. No cough. No vomiting or diarrhea. - Related Data Home Medications Medication Instructions Recorded Confirmed Levothyroxine Sodium [Tirosint] 50 mcg PO QAM 10/08/15 08/27/19 Cholecalciferol [Vitamin D3 (25 1,000 unit PO DAILY 05/11/18 08/27/19 Mcg = 1000 Iu)] Fenofibrate Nanocrystallized 145 mg PO DAILY 05/11/18 08/27/19 [Fenofibrate] Glucosam/Jadiel-Msm1/C/Keith/Bosw 1 tab PO DAILY 05/11/18 08/27/19 [Glucosamine-Chondroitin Tablet] Multivitamin,Therapeutic [Thera] 1 tab PO DAILY 05/11/18 08/27/19 [place]-3 Fatty Acids/Fish Oil [Fish 1 cap PO DAILY 05/11/18 08/27/19 Oil 1,000 mg Softgel] Vitamin B Complex 1 cap PO DAILY 05/11/18 08/27/19 Aspirin EC [Ecotrin] 325 mg PO DAILY 08/27/19 08/27/19 Lisinopril-Hctz 20-12.5 mg 1 tab PO DAILY 08/27/19 08/27/19 [Zestoretic 20-12.5] Metoprolol Tartrate [Lopressor] 12.5 mg PO BID 08/27/19 08/27/19 Previous Rx's Medication Instructions Recorded Apixaban [Eliquis] 5 mg PO BID #30 tab 05/13/18 Ezetimibe [Zetia] 10 mg PO DAILY #30 tab 05/13/18 Allergies Allergy/AdvReac Type Severity Reaction Status Date / Time Iodinated Contrast Media Allergy Anaphylaxis Verified 08/27/19 20:39 [Iodinated Contrast Media - IV Dye] Penicillins Allergy Unknown Verified 02 20:39 Childhood hydrocodone bitartrate AdvReac dizzyness, Verified 08/27/19 20:39 [From Vicodin] flushed metformin AdvReac Unknown Verified 08/27/19 20:39 Review of Systems ROS Statement: Those systems with pertinent positive or pertinent negative responses have been documented in the HPI. ROS Other: All systems not noted in ROS Statement are negative. Past Medical History Past Medical History: Atrial Fibrillation, COPD, Hyperlipidemia, Hypertension, Thyroid Disorder Additional Past Medical History / Comment(s): BACK AND KNEE PAIN, new onset atrial fib, brain tumor History of Any Multi-Drug Resistant Organisms: None Reported Past Surgical History: Breast Surgery, Hysterectomy, Orthopedic Surgery, Tonsillectomy Additional Past Surgical History / Comment(s): RT KNEE ARTHROSCOPY, BREAST BIOPSYx2, PARTIAL THYROIDECTOMY, stent and coil of brain aneurysm Additional Past Anesthesia/Blood Transfusion Reaction / Comment(s): "GET'S REALLY DIZZY" HAD TO STAY LONGER IN POST OP Past Psychological History: No Psychological Hx Reported Smoking Status: Former smoker Past Alcohol Use History: Rare Past Drug Use History: None Reported - Past Family History Mother Family Medical History: Hypertension Additional Family Medical History / Comment(s): mitral valve repairs General Exam Limitations: no limitations General appearance: alert, in no apparent distress Head exam: Present: atraumatic, normocephalic Eye exam: Present: normal appearance, PERRL, EOMI. Absent: scleral icterus, periorbital swelling ENT exam: Present: normal exam Neck exam: Present: normal inspection. Absent: tenderness, meningismus Respiratory exam: Present: normal lung sounds bilaterally. Absent: respiratory distress, wheezes Cardiovascular Exam: Present: regular rate, normal rhythm GI/Abdominal exam: Present: soft. Absent: distended, tenderness, guarding Extremities exam: Present: normal inspection, normal capillary refill. Absent: pedal edema, calf tenderness Neurological exam: Present: alert, oriented X3, CN II-XII intact, normal gait. Absent: motor sensory deficit Psychiatric exam: Present: normal affect, normal mood Skin exam: Present: warm, dry, intact. Absent: cyanosis, diaphoretic Course Vital Signs 08/27/19 08/27/19 08/27/19 18:29 19:00 19:30 Temperature 97.8 F Pulse Rate 77 67 55 L Respiratory 18 18 18 Rate Blood Pressure 146/85 152/93 146/95 O2 Sat by Pulse 96 98 98 Oximetry 08/27/19 08/27/19 20:00 20:30 Temperature Pulse Rate 59 L 58 L Respiratory 17 19 Rate Blood Pressure 151/88 166/91 O2 Sat by Pulse 97 97 Oximetry EKG Findings - EKG Comments: EKG Findings:: EKG: Sinus bradycardia, rate of 59, HI interval 146, QRS duration 88, QTC 429, no ST segment elevation Medical Decision Making - Medical Decision Making 63-year-old female presenting with transient vision loss, near syncope. Symptoms completely resolved with time my evaluation. She has chronic headaches, no headache at the time my evaluation. She states her headaches are typical of her chronic headaches. CT is performed this is negative for intracranial hemorrhage or mass effect. CT angiography is performed which is negative for occlusion or aneurysmal change, no hemorrhage. Patient remains asymptomatic while in the emergency department. She has an NIH is 0. Normal vision. Nonfocal neurologic exam. Workup reveals normal CBC, normal CMP, troponin is negative, EKG is nonischemic. Chest x-ray negative for acute cardiopulmonary disease. I did discuss possibilities of near-syncope, amaurosis fugax, TIA. Patient is anticoagulated with history of atrial fibrillation. She will be kept for further evaluation by both cardiology and neurology. - Lab Data Result diagrams: 08/27/19 18:59 08/27/19 18:59 Lab Results 08/27/19 08/27/19 08/27/19 Range/Units 18:59 18:59 18:59 WBC 7.5 (3.8-10.6) k/uL RBC 4.59 (3.80-5.40) m/uL Hgb 12.9 (11.4-16.0) gm/dL Hct 38.8 (34.0-46.0) % MCV 84.5 (80.0-100.0) fL MCH 28.0 (25.0-35.0) pg MCHC 33.1 (31.0-37.0) g/dL RDW 14.6 (11.5-15.5) % Plt Count 310 (150-450) k/uL Neutrophils % 58 % Lymphocytes % 30 % Monocytes % 5 % Eosinophils % 3 % Basophils % 1 % Neutrophils # 4.3 (1.3-7.7) k/uL Lymphocytes # 2.3 (1.0-4.8) k/uL Monocytes # 0.4 (0-1.0) k/uL Eosinophils # 0.2 (0-0.7) k/uL Basophils # 0.1 (0-0.2) k/uL PT 9.7 (9.0-12.0) sec INR 0.9 (<1.2) APTT 24.6 (22.0-30.0) sec Sodium 138 (137-145) mmol/L Potassium 3.5 (3.5-5.1) mmol/L Chloride 104 (98-107) mmol/L Carbon Dioxide 25 (22-30) mmol/L Anion Gap 9 mmol/L BUN 21 H (7-17) mg/dL Creatinine 0.61 (0.52-1.04) mg/dL Est GFR (CKD-EPI)AfAm >90 (>60 ml/min/1.73 sqM) Est GFR (CKD-EPI)NonAf >90 (>60 ml/min/1.73 sqM) Glucose 156 H (74-99) mg/dL Calcium 9.7 (8.4-10.2) mg/dL Magnesium 1.9 (1.6-2.3) mg/dL Total Bilirubin 0.4 (0.2-1.3) mg/dL AST 41 H (14-36) U/L ALT 49 H (4-34) U/L Alkaline Phosphatase 73 (38-126) U/L Troponin I (0.000-0.034) ng/mL Total Protein 6.8 (6.3-8.2) g/dL Albumin 4.4 (3.5-5.0) g/dL Urine Color Urine Appearance (Clear) Urine pH (5.0-8.0) Ur Specific [place] (1.001-1.035) Urine Protein (Negative) Urine Glucose (UA) (Negative) Urine Ketones (Negative) Urine Blood (Negative) Urine Nitrite (Negative) Urine Bilirubin (Negative) Urine Urobilinogen (<2.0) mg/dL Ur Leukocyte Esterase (Negative) Urine RBC (0-5) /hpf Urine WBC (0-5) /hpf Ur Squamous Epith Cells (0-4) /hpf Urine Bacteria (None) /hpf 08/27/19 08/27/19 Range/Units 18:59 19:47 WBC (3.8-10.6) k/uL RBC (3.80-5.40) m/uL Hgb (11.4-16.0) gm/dL Hct (34.0-46.0) % MCV (80.0-100.0) fL MCH (25.0-35.0) pg MCHC (31.0-37.0) g/dL RDW (11.5-15.5) % Plt Count (150-450) k/uL Neutrophils % % Lymphocytes % % Monocytes % % Eosinophils % % Basophils % % Neutrophils # (1.3-7.7) k/uL Lymphocytes # (1.0-4.8) k/uL Monocytes # (0-1.0) k/uL Eosinophils # (0-0.7) k/uL Basophils # (0-0.2) k/uL PT (9.0-12.0) sec INR (<1.2) APTT (22.0-30.0) sec Sodium (137-145) mmol/L Potassium (3.5-5.1) mmol/L Chloride (98-107) mmol/L Carbon Dioxide (22-30) mmol/L Anion Gap mmol/L BUN (7-17) mg/dL Creatinine (0.52-1.04) mg/dL Est GFR (CKD-EPI)AfAm (>60 ml/min/1.73 sqM) Est GFR (CKD-EPI)NonAf (>60 ml/min/1.73 sqM) Glucose (74-99) mg/dL Calcium (8.4-10.2) mg/dL Magnesium (1.6-2.3) mg/dL Total Bilirubin (0.2-1.3) mg/dL AST (14-36) U/L ALT (4-34) U/L Alkaline Phosphatase (38-126) U/L Troponin I <0.012 (0.000-0.034) ng/mL Total Protein (6.3-8.2) g/dL Albumin (3.5-5.0) g/dL Urine Color Yellow Urine Appearance Clear (Clear) Urine pH 5.5 (5.0-8.0) Ur Specific [place] 1.017 (1.001-1.035) Urine Protein Negative (Negative) Urine Glucose (UA) Negative (Negative) Urine Ketones Negative (Negative) Urine Blood Negative (Negative) Urine Nitrite Negative (Negative) Urine Bilirubin Negative (Negative) Urine Urobilinogen <2.0 (<2.0) mg/dL Ur Leukocyte Esterase Moderate H (Negative) Urine RBC 2 (0-5) /hpf Urine WBC 24 H (0-5) /hpf Ur Squamous Epith Cells 1 (0-4) /hpf Urine Bacteria Rare H (None) /hpf Disposition Clinical Impression: Near syncope, Transient visual loss of both eyes, TIA (transient ischemic attack) Disposition: ADMITTED IP TO THIS [facility] Condition: Stable Is patient prescribed a controlled substance at d/c from ED?: No Referrals: Saloni Juárez MD [Primary Care Provider] - 1-2 days Decision to Admit Reason: Admit from EC Decision Date: 08/27/19 Decision Time: 21:32
[2019-08-27 19:48] LABS: ALT 49 U/L (4-34); AST 41 U/L (14-36); African American GFR (CKD) >90 (>60 ml/min/1.73 sqM); Albumin 4.4 g/dL (3.5-5.0); Alkaline Phosphatase 73 U/L (38-126); Anion Gap 9 mmol/L; Blood Urea Nitrogen 21 mg/dL (7-17); Calcium 9.7 mg/dL (8.4-10.2); Carbon Dioxide 25 mmol/L (22-30); Chloride 104 mmol/L (98-107); Glucose 156 mg/dL (74-99); Magnesium 1.9 mg/dL (1.6-2.3); Non-African American GFR(CKD) >90 (>60 ml/min/1.73 sqM); Potassium 3.5 mmol/L (3.5-5.1); Sodium 138 mmol/L (137-145); Total Bilirubin 0.4 mg/dL (0.2-1.3); Total Protein 6.8 g/dL (6.3-8.2)
[2019-08-27 19:51] LABS: INR 0.9 (<1.2); Partial Thromboplastin Time 24.6 sec (22.0-30.0); Prothrombin Time 9.7 sec (9.0-12.0)
[2019-08-27 20:20] LABS: Appearance,Urine Clear (Clear); Bacteria,Urine Rare /hpf; Bilirubin,Urine Negative (Negative); Blood,Urine Negative (Negative); Color,Urine Yellow; Glucose,Urine (UA) Negative (Negative); Ketones,Urine Negative (Negative); Leukocyte Esterase,Urine Moderate (Negative); Nitrite,Urine Negative (Negative); PH, Urine 5.5 (5.0-8.0); Protein,Urine Negative (Negative); RBC,Urine 2 /hpf (0-5); Specific Gravity,Urine 1.017 (1.001-1.035); Squamous Epithelial Cell,Urine 1 /hpf (0-4); Urobilinogen,Urine <2.0 mg/dL (<2.0); WBC,Urine 24 /hpf (0-5)
--- NOTE | 2019-08-27 20:37 | XR ---
EXAMINATION TYPE: XR chest 2V DATE OF EXAM: 08/27/2019 COMPARISON: 10/16/2018 HISTORY: Chest pain TECHNIQUE: Frontal and lateral views of the chest are obtained. FINDINGS: There is no focal air space opacity. No evidence for pneumothorax. No pleural effusion. The cardiac silhouette size is within normal limits. The osseous structures are grossly intact. IMPRESSION: 1. No acute cardiopulmonary process.
--- NOTE | 2019-08-27 20:39 | CT ---
EXAMINATION TYPE: CT brain wo con DATE OF EXAM: 08/27/2019 COMPARISON: 139 HISTORY: ETJEDA, vision changes CT DLP: 1102.[address] of the brain was performed. The ventricles, basal cisterns and sulci overlying the cerebral convexities demonstrate mild enlargem ent. There is no evidence for intracranial hemorrhage or sulcal effacement. There is decreased attenuation about the periventricular white matter and deep white matter of both c erebral hemispheres, compatible with chronic small vessel ischemia. Differential diagnosis does inclu de demyelination. No mass effects are seen.No midline shift. Calvarium is intact. Suprasellar aneurysm clipping with streak artifact. If symptoms persist consider MRI. IMPRESSION: 1. Age related atrophic and chronic small vessel ischemic change without acute intracranial process s een at this time.
--- NOTE | 2019-08-27 21:13 | CT ---
EXAMINATION TYPE: CT angio head neck DATE OF EXAM: 08/27/2019 COMPARISON: None HISTORY: TEJEDA, vision changes CT DLP: 505.2 mGycm CONTRAST: Performed with IV Contrast, patient injected with 65 mL of Isovue 370. Combination Contrast CTA cervical carotids and [place] CTA cervical carotids with 3-D recons truction Contrast CTA of the cervical carotids was performed 3-D reconstruction imaging obtained at a separate workstation. Right carotid system: Mild plaque is seen of the right common carotid artery. There is mild plaque a lso noted at the carotid bulb and proximal ICA. No significant diameter reduction. ECA is patent. Right vertebral artery appears unremarkable. Left carotid system: Mild plaque is seen of the left common carotid artery. There is mild plaque als o noted at the carotid bulb and proximal ICA. No significant diameter reduction. ECA is patent. Lef t vertebral artery appears unremarkable. IMPRESSION: 1. No significant diameter reduction to account for the patient's symptoms. CTA [place] with 3-D reconstruction Contrast CTA of the [place] was performed 3-D reconstruction imaging obtained at a separate workstation. Vertebrobasilar system as well as intracranial portions of the internal carotid arteries and their ma sachi tributaries are patent. 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 I do not see evidence for sizable a neurysm or vascular malformation. Please note MRI provides greater sensitivity and specificity. Vis ualized brain appears grossly unremarkable. IMPRESSION: 1. No siginificant abnormality.
[2019-08-28 06:01] LABS: Glucose,Whole Blood 220 mg/dL (75-99)
[2019-08-28] MEDS: LEVOTHYROXINE 50 MCG TAB PO SCH (06:18)
[2019-08-28] MEDS: INSULIN ASPART (NovoLOG) 100 UNIT/ML VIAL SQ SCH ×4 (06:29→21:21)
[2019-08-28 06:32] LABS: Cholesterol 221 mg/dL (<200); HDL Cholesterol 91 mg/dL (40-60); LDL Cholesterol,Calculated 107 mg/dL (0-99); Triglycerides 113 mg/dL (<150)
[2019-08-28] MEDS: EZETIMIBE 10 MG TAB PO SCH (08:45)
[2019-08-28] MEDS: LISINOPRIL-HCTZ 20-12.5 MG 1 EACH TAB PO SCH (08:45)
[2019-08-28] MEDS: ASPIRIN 325 MG TAB PO SCH (08:45)
[2019-08-28] MEDS: APIXABAN 5 MG TAB PO SCH ×2 (08:45→21:25)
[2019-08-28] MEDS: METOPROLOL TARTRATE 25 MG TAB PO SCH ×2 (08:48→21:25)
--- NOTE | 2019-08-28 09:43 | CONS ---
STEPHANIE Sanz is a 63-year-old lady with history of paroxysmal atrial fibrillation, hypertension, and dyslipidemia who is was admitted to the hospital having had transient loss of vision. She states that she was driving a car, suddenly felt dizzy, could not see anything. The whole episode lasted less than a minute and then she came back to normal and had been normal since. At the time of my evaluation, she appears comfortable at rest and free of any symptoms. She has history of atrial fibrillation and is currently on Eliquis for the same. At the moment, she is in sinus rhythm. Patient has a history of meningioma. There is history of cerebral aneurysm that has been treated with coil. PAST MEDICAL HISTORY: Significant for hypertension, dyslipidemia, hypothyroidism, and paroxysmal atrial fibrillation. MEDICATIONS: Include Lopressor 12.5 b.i.d., Zestoretic, levothyroxine, fenofibrate, Zetia, aspirin and Eliquis. ALLERGY: To IV DYE, PENICILLIN, METFORMIN, and HYDROCODONE. FAMILY HISTORY: Negative for premature coronary artery disease. SOCIAL HISTORY: Negative for current smoking, EtOH abuse, or drug abuse. REVIEW OF SYSTEMS: HEENT is significant for dizziness. CARDIAC: As described above. RESPIRATORY: Negative. GI: Negative. GENITOURINARY: Negative. ALLERGY/IMMUNOLOGY: Negative. SKIN: Negative. MUSCULOSKELETAL: Negative. ENDOCRINE: Negative. DERM: Negative. CONSTITUTIONAL: Negative. ONCOLOGICAL: Negative. WEDDING DESIGNER: As described above. PSYCHOSOCIAL: Negative. Rest of the system review is not relevant. PHYSICAL EXAM: Comfortable at rest. Vital signs are stable. There is no jugular venous distention. Carotid upstroke is normal. There is no bruit. Chest exam reveals good air entry bilaterally. Heart exam reveals first and second heart sounds. No gallop. No murmur. No rub. Abdomen is soft, nontender. Exam of extremities did not reveal any edema. Peripheral pulses are felt. ASSESSMENT: 1. Transient loss of vision. 2. History of meningioma of the frontal lobe. 3. History of cerebral aneurysm, status post coil occlusion. 4. Paroxysmal atrial fibrillation. 5. Possible TIA. PLAN: From cardiac standpoint, patient appears stable. I am going to check her orthostatics, obtain a 2D echo to evaluate her LV function. CT angiogram is negative. She does not have any carotid stenosis. EKG shows sinus rhythm. Patient had a cardiac catheterization in 2018 that showed normal coronaries. 1. Will watch her on telemetry. Anticipate her going home tomorrow. MMODL / IJN: [id number] /
[2019-08-28] MEDS ORDERED: NON FORMULARY DRUG (Vitamin B Complex [Vitamin B Complex] 1 CAP) PO SCH (12:00)
[2019-08-28] MEDS ORDERED: NON FORMULARY DRUG (Glucosam/Chon-Msm1/C/Mang/Bosw [Glucosamine-Chondroitin Tablet] 1 TAB) PO SCH (12:00)
[2019-08-28] MEDS ORDERED: NON FORMULARY DRUG (Omega-3 Fatty Acids/Fish Oil [Fish Oil 1,000 Mg Softgel] 1 CAP) PO SCH (12:00)
[2019-08-28 12:12] LABS: Glucose,Whole Blood 139 mg/dL (75-99)
--- NOTE | 2019-08-28 12:19 | P.CNNES ---
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 She started applying brakes, and as she tried to put the car in the park, the vision started coming back and the dizziness resolved. It lasted no more than 10 seconds. She did not have any other focal symptoms like slurred speech facial droop focal numbness tingling or weakness. She got concerned, therefore came to the hospital. Her blood pressure on arriv al was 146/85, pulse rate 77, temperature 97.8. Patient underwent computed tomography scan of the head, which revealed no acute process. Age-related atrophic and chronic small vessel ischemic change without acute intracranial process. Chest x-ray showed no acute cardio per report process. EKG shows sinus bradycardia with sinus arrhythmia. Cannot rule out inferior infarct, age undetermined. Patient underwent CTA of head and neck, which revealed no significant dimetria reduction to account for the patient's symptoms. Vertebrobasilar system as well as intracranial portion of the internal carotid arteries and their major arteries are patent. 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 No evidence for sizable aneurysm or vascular malformation. Patient's UA showed moderate leukocyte esterase, 24 WBCs and rare bacteria. Her total cholesterol is 221, LDL 107, HDL 91 and triglycerides were and 13. AST is mildly elevated 41 ALT 49. Troponin is negative. Her last hemoglobin A1c 6.2 on 05/18/2019. Patient also was diagnosed with cerebral aneurysm in the right internal carotid artery measuring 8 mm extending at the medial aspect of the right internal carotid artery at the level of the siphon which measures approximately 5 mm. She underwent endovascular stent coiling on 12/04/2018 at [facility]. Patient's MRI of the brain also revealed small frontal meningioma along the left lateral aspect of the anterior falx. Patient has been seeing a neurologist at [facility], who has diagnosed her with migraines. Patient has received 2 sessions of Botox injection, the last one was on 07/05/2019. She now gets transient headaches, lasting for 5 minutes involving different parts of her scalp. Patient has history of hypertension, diabetes diagnosed in November 2018. Patient has history of tobacco use since she was age 16. In her 40s, she went up to 1-1-1/2 pack per day. She just quit tobacco in April 2018 after she was diagnosed with atrial fibrillation and coronary artery disease. She is currently on Eliquis 5 mg twice a day and aspirin. Patient states that about couple months ago, she stopped taking Eliquis due to some rash. She stayed off the medication for a month, but then restarted Eliquis a month ago. She was seen last time by eye doctor a year ago and everything was fine. Review of Systems As mentioned above in detail. Denies chest pain shortness of breath wheezing or cough. Past Medical History Past Medical History: Atrial Fibrillation, COPD, Hyperlipidemia, Hypertension, Thyroid Disorder Additional Past Medical History / Comment(s): BACK AND KNEE PAIN, new onset atrial fib, brain tumor History of Any Multi-Drug Resistant Organisms: None Reported Past Surgical History: Breast Surgery, Hysterectomy, Orthopedic Surgery, Tonsillectomy Additional Past Surgical History / Comment(s): RT KNEE ARTHROSCOPY, BREAST BIOPSYx2, PARTIAL THYROIDECTOMY, stent and coil of brain aneurysm Additional Past Anesthesia/Blood Transfusion Reaction / Comment(s): "GET'S AIDEN LLY DIZZY" HAD TO STAY LONGER IN POST OP Past Psychological History: No Psychological Hx Reported Smoking Status: Former smoker Past Alcohol Use History: Rare Additional Past Alcohol Use History / Comment(s): STARTED SMOKING AT AGE 16, ON AND OFF, 1PPD Past Drug Use History: None Reported - Past Family History Mother Family Medical History: Hypertension Additional Family Medical History / Comment(s): mitral valve repairs Medications and Allergies Home Medications Medication Instructions Recorded Confirmed Type Levothyroxine Sodium [Tirosint] 50 mcg PO QAM 10/08/15 08/27/19 History Cholecalciferol [Vitamin D3 (25 1,000 unit PO DAILY 05/11/18 08/27/19 History Mcg = 1000 Iu)] Fenofibrate Nanocrystallized 145 mg PO DAILY 05/11/18 08/27/19 History [Fenofibrate] Glucosam/Jadiel-Msm1/C/Keith/Bosw 1 tab PO DAILY 05/11/18 08/27/19 History [Glucosamine-Chondroitin Tablet] Multivitamin,Therapeutic [Thera] 1 tab PO DAILY 05/11/18 08/27/19 History [place]-3 Fatty Acids/Fish Oil [Fish 1 cap PO DAILY 05/11/18 08/27/19 History Oil 1,000 mg Softgel] Vitamin B Complex 1 cap PO DAILY 05/11/18 08/27/19 History Apixaban [Eliquis] 5 mg PO BID #30 tab 05/13/18 08/27/19 Rx Ezetimibe [Zetia] 10 mg PO DAILY #30 tab 05/13/18 08/27/19 Rx Aspirin EC [Ecotrin] 325 mg PO DAILY 08/27/19 08/27/19 History Lisinopril-Hctz 20-12.5 mg 1 tab PO DAILY 08/27/19 08/27/19 History [Zestoretic 20-12.5] Metoprolol Tartrate [Lopressor] 12.5 mg PO BID 08/27/19 08/27/19 History Allergies Allergy/AdvReac Type Severity Reaction Status Date / Time Iodinated Contrast Media Allergy Anaphylaxis Verified 08/27/19 20:39 [Iodinated Contrast Media - IV Dye] Penicillins Allergy Unknown Verified 08/27/19 20:39 Childhood hydrocodone bitartrate AdvReac dizzyness, Verified 08/27/19 20:39 [From Vicodin] flushed metformin AdvReac Unknown Verified 08/27/19 20:39 Physical Examination - Vital Signs Vital Signs: Vital Signs Temp Pulse Pulse Resp BP BP BP 08/28/19 08:00 97.6 F 70 139/84 154/95 08/28/19 04:00 97.1 F L 74 18 08/28/19 00:00 97.8 F 76 16 08/27/19 22:30 75 18 142/85 08/27/19 22:00 60 16 180/99 08/27/19 21:30 58 L 18 168/89 08/27/19 20:30 58 L 19 166/91 08/27/19 20:00 59 L 17 151/88 08/27/19 19:30 55 L 18 146/95 08/27/19 19:00 67 18 152/93 08/27/19 18:29 97.8 F 77 18 146/85 BP BP Pulse Ox 08/28/19 08:00 125/86 92 L 08/28/19 04:00 140/87 02/11/20 00:00 136/81 08/27/19 22:30 98 08/27/19 22:00 97 08/27/19 21:30 95 08/27/19 20:30 97 08/27/19 20:00 97 08/27/19 19:30 98 08/27/19 19:00 98 08/27/19 18:29 96 Intake and Output 08/27/19 08/28/19 08/28/19 22:59 06:59 14:59 Intake Total 240 Balance 240 Intake: Oral 240 Other: # Voids 1 Weight 99.79 kg 101.2 kg On examination patient is an elderly female, in no distress. Patient is alert awake oriented to time place and person. Speech and language functions are normal. Attention and concentration fund of knowledge is adequate. On cranial nerve exam his pupils are round and reactive to light, visual odom are full, extraocular muscles muscles are intact. Face is symmetric, tongue protrudes the midline. Palatal elevation sensation normal. On muscle strength testing there is no pronator drift and the strength is normal in arms and legs distally and proximally. Reflexes are 1+ and plantars downgoing. Sensory touch is equal. No ataxia for [id number] testing. Tone and bulk of muscles normal. There is no carotid bruit or murmur, peripheral pulses present. Results - Laboratory Findings CBC and BMP: 08/27/19 18:59 08/27/19 18:59 Abnormal Lab Findings: Abnormal Labs 08/27/19 08/27/19 08/28/19 18:59 19:47 05:51 BUN 21 H Glucose 156 H POC Glucose (mg/dL) AST 41 H ALT 49 H Cholesterol 221 H LDL Cholesterol, Calc 107 H HDL Cholesterol 91 H Ur Leukocyte Esterase Moderate H Urine WBC 24 H Urine Bacteria Rare H 08/28/19 06:00 BUN Glucose POC Glucose (mg/dL) 220 H AST ALT Cholesterol LDL Cholesterol, Calc HDL Cholesterol Ur Leukocyte Esterase Urine WBC Urine Bacteria Assessment and Plan Assessment: * 63-year-old female admitted with possible TIA manifesting with transient bilateral vision loss and dizziness, that resolved in about 10-15 seconds. Patient's current neurological examination is nonfocal. There was no alteration in awareness or level of consciousness, therefore doubt seizure. P atient apparently had stopped Eliquis for a couple months ago, however resumed taking Eliquis about a month ago. Uncertain if not taking Eliquis at that time may have triggered current TIA. * Hypertension * Hyperlipidemia * History of cerebral aneurysm, right ICA, status post endovascular coiling in November 2018. * Very small left frontal meningioma, stable, likely asymptomatic. * X tobacco user. Plan: * Patient's current neurological examination is normal. * CTA of head and neck showed no evidence of stenosis, or recurrence of aneurysm. * Continue Eliquis and aspirin. * Await results of 2-D echo. * We will check EEG to rule out any epileptiform activity. * If the echo and EEG is normal, then patient can be discharged home.
[2019-08-28] MEDS: CHOLECALCIFEROL 1,000 UNIT TAB PO SCH (12:31)
[2019-08-28] MEDS: MULTIVITAMINS, THERA 1 EACH TAB PO SCH (12:31)
[2019-08-28] MEDS: FENOFIBRATE 160 MG TAB PO SCH (12:31)
--- NOTE | 2019-08-28 12:54 | ECHOF ---
Referral Reason:Near-syncope MEASUREMENTS -------- HEIGHT: 182.9 cm WEIGHT: 101.2 kg BP: 140/87 IVSd: 1.4 cm (0.6 - 1.1) LVIDd: 3.3 cm (3.9 - 5.3) LVPWd: 1.8 cm (0.6 - 1.1) IVSs: 2.0 cm LVIDs: 2.0 cm LVPWs: 1.9 cm LAESV Index (A-L): 21.31 ml/m Ao Diam: 3.1 cm (2.0 - 3.7) AV Cusp: 2.4 cm (1.5 - 2.6) LA Diam: 3.3 cm (2.7 - 3.8) MV EXCURSION: 17.701 mm (> 18.000) MV EF SLOPE: 103 mm/s (70 - 150) EPSS: 0.5 cm MV E Des: 0.85 m/s MV DecT: 214 ms MV A Des: 0.92 m/s MV E/A Ratio: 0.93 AR PHT: 373 ms RAP: 5.00 mmHg RVSP: 16.46 mmHg FINDINGS -------- Sinus rhythm. This was a technically good study. The left ventricular size is normal. There is moderate concentric left ventricular hypertrophy. O verall left ventricular systolic function is normal with, an EF between 55 - 60 %. The right ventricle is normal in size. The left atrial size is normal. Normal LA size by volume 22+/-6 ml/m2. The right atrial size is normal. The aortic valve is trileaflet and appears structurally normal. The mitral valve is normal. The mitral valve leaflets are mildly thickened. There is trace mitral regurgitation. The tricuspid valve appears structurally normal. Trace tricuspid regurgitation present. Right aldo tricular systolic pressure is normal at < 35 mmHg. There is no pulmonic regurgitation present. The aortic root size is normal. Normal inferior vena cava with normal inspiratory collapse consistent with estimated right atrial pre ssure of 5 mmHg. There is no pericardial effusion. CONCLUSIONS -------- 1. Sinus rhythm. 2. This was a technically good study. 3. The left ventricular size is normal. 4. There is moderate concentric left ventricular hypertrophy. 5. Overall left ventricular systolic function is normal with, an EF between 55 - 60 %. 6. The right ventricle is normal in size. 7. The left atrial size is normal. 8. Normal LA size by volume 22+/-6 ml/m2. 9. The right atrial size is normal. 10. The aortic valve is trileaflet and appears structurally normal. 11. The mitral valve is normal. 12. The mitral valve leaflets are mildly thickened. 13. There is trace mitral regurgitation. 14. The tricuspid valve appears structurally normal. 15. Trace tricuspid regurgitation present. 16. Right ventricular systolic pressure is normal at < 35 mmHg. 17. There is no pulmonic regurgitation present. 18. The aortic root size is normal. 19. Normal inferior vena cava with normal inspiratory collapse consistent with estimated right atrial pressure of 5 mmHg. 20. There is no pericardial effusion. BALL HOLDER: Melissa De Jesus RDCS
--- NOTE | 2019-08-28 15:31 | HP ---
HISTORY AND PHYSICAL DATE OF SERVICE: 08/28/2019 CHIEF COMPLAINT: Difficulty in vision as well as dizziness. HISTORY OF PRESENT ILLNESS: This is a 63-year-old woman with a past medical history of multiple medical problems including atrial fibrillation, history of COPD, hypertension, history of hypothyroidism, history of carotid artery aneurysm, status post endovascular stenting being followed by Dr. Juárez and Dr. Solorzano in the outpatient setting was apparently driving to pick with granddaughter from the [employer]. The patient had sudden onset of visual loss, which lasted for 10-15 minutes with some dizziness and the patient's had to top at the side and slowly the vision came up. Patient did not pass out or history of palpitations, headache or loss pf consciousness. Blood pressure is found to be elevated up to 180/102 and the patient taken to [facility], admitted for further evaluation and treatment. Cardiology and Neurology evaluations are in progress at this time. A CAT scan of the brain and CT angio of the brain was also done. CAT scan showed age-related atrophic changes, small-vessel ischemic small vessel ischemic changes. The CT angio showed no significant abnormality. The patient will be closely monitored. There is no history of fever, chills, rigors. No history of headache, loss of consciousness, seizures at this time. PAST MEDICAL HISTORY: History of atrial fibrillation, COPD, hypertension, hypertension, back surgery, migraine, breast surgery, and endovascular stent as mentioned. HOME MEDICATION: 1. Vitamin B complex 1 p.o. daily. 2. Multivitamin 1 p.o. daily. 3. Lopressor 12.5 mg p.o. b.i.d. next \\lisinopril 1 tablet p.o. daily. 4. Tirosint TIS ENT 50 mcg p.o. q.a.m. 5. Glucosamine 1 tablet p.o. daily. 6. Fenofibrate 145 mg p.o. daily. 7. Zetia 10 mg p.o. daily. 8. Vitamin D3 1000 daily. 9. Ecotrin 325 mg daily. 10.Eliquis 5 mg p.o. b.i.d. ALLERGIES: IODINATED CONTRAST DYES, PENICILLIN, VICODIN, METFORMIN. FAMILY HISTORY: History of hypertension, history of mitral valve repair in the family. SOCIAL HISTORY: Previous smoking, no history of current smoking or alcohol. REVIEW OF SYSTEMS: ENT: No diminished vision, no diminished hearing. CARDIOVASCULAR: No angina, as mentioned earlier. RESPIRATION: No cough. GI: No nausea. : No dysuria. NERVOUS SYSTEM: No numbness or weakness. ALLERGY/IMMUNOLOGY: No asthma or hayfever. MUSCULOSKELETAL: As mentioned earlier. HEMATOLOGY/ONCOLOGY: No history of anemia. ENDOCRINE: No history of diabetes or hypothyroidism. CONSTITUTIONAL: As mentioned earlier. DERMATOLOGY: Negative. RHEUMATOLOGY: Negative. PSYCHIATRY: As mentioned earlier. PHYSICAL EXAMINATION: Patient is alert and oriented x3. Pulse is 74. Blood pressure 132/84. Minimal orthostatic changes. Respiration 20. Temperature is 97.6, pulse ox 94% on room air. HEENT: Conjunctivae normal. Oral mucosa moist. NECK: No jugular venous distention. No lymph node enlargement. CARDIOVASCULAR SYSTEM: S1, S2, muffled. RESPIRATION: Breath sounds diminished at the bases, a few scattered rhonchi, no crackles. ABDOMEN: Soft, nontender. No mass palpable. LEGS: No edema, no swelling. NERVOUS SYSTEM: Higher functions as mentioned earlier. Moves all 4 limbs. No focal motor or sensory deficits. SKIN: No ulcers, rash, or bleeding. JOINTS: No active arthropathy. LABS: At this time show CBC within normal. Sodium 130, potassium 3.5, glucose 156, glucose is 221, LDL is 107. ASSESSMENT: 1. Transient bilateral vision loss, possibly acute transient ischemic attack, rule out cardiac arrhythmia. 2. Hyperlipidemia. 3. Possible acute urinary tract infection, present on admission. 4. Increased AST, ALT. 5. History atrial fibrillation. 6. Chronic obstructive pulmonary disease. 7. Hypertension. 8. Hyperlipidemia. 9. Degenerative joint disease. 10.History of meningioma. 11.History of endovascular stent and coiling for right internal carotid artery aneurysm. 12.Degenerative joint disease. 13.Remote history of nicotine dependence. RECOMMENDATION: In this 63-year-old woman who presented with multiple medical issues, will monitor the patient closely, continue with the current medication and symptomatic treatment. Will continue with antiplatelet agents. Neurology, Cardiology consultation, empiric antibiotics for UTI. I would also recommend MRI of the brain if it is permissible. Otherwise, will continue to monitor. Prognosis guarded. Discussed with the patient who understands. Further recommendation to follow. A copywriting intern of this will be forwarded to Dr. Juárez who is the primary physician. MMODL / IJN: [id number] /
[2019-08-28 16:35] LABS: Glucose,Whole Blood 128 mg/dL (75-99)
--- NOTE | 2019-08-28 16:35 | EEG ---
ELECTROENCEPHALOGRAM REPORT DATE OF SERVICE: 08/28/2019. PREAMBLE: This is a 63-year-old female who had an episode of transient vision loss while driving with dizziness. This study is performed to evaluate for any epileptiform activity. EEG FINDINGS: A routine 21-channel awake digital EEG recording was accomplished utilizing the 10/20 international system with bipolar and referential montages. The background consists of well developed, well regulated, moderate voltage activity in 9-10 Hz alpha. Background is posterior-dominant and reactive to eye opening and closing. Mild drowsiness was seen with appearance of some theta frequency rhythm, but deeper stage of sleep was not seen. Photic driving response was not clearly seen. A single sharp wave was seen in the left temporal region at 1420 hours. It did not appear clearly epileptiform. EKG channel lead revealed no obvious arrhythmia. IMPRESSION: This is essentially a normal EEG during wakefulness and drowsiness. A single left temporal sharp wave was seen which did not appear clearly epileptiform. If your suspicion for seizures is high, suggest prolonged, sleep-deprived EEG. MMODL / IJN: [id number] /
[2019-08-28 21:05] LABS: Glucose,Whole Blood 140 mg/dL (75-99)
[2019-08-29 06:05] LABS: Glucose,Whole Blood 111 mg/dL (75-99)
[2019-08-29] MEDS: INSULIN ASPART (NovoLOG) 100 UNIT/ML VIAL SQ SCH ×3 (06:07→18:23)
[2019-08-29] MEDS: LEVOTHYROXINE 50 MCG TAB PO SCH (06:36)
[2019-08-29 06:48] LABS: Basophils % (A) 1 %; Eosinophils # (A) 0.1 k/uL (0-0.7); Eosinophils % (A) 1 %; HCT 37.4 % (34.0-46.0); HGB 12.3 gm/dL (11.4-16.0); Lymphocytes # (A) 2.4 k/uL (1.0-4.8); Lymphocytes % (A) 28 %; MCH 27.9 pg (25.0-35.0); MCV 84.6 fL (80.0-100.0); Mean Platelet Volume 8.7; Monocytes # (A) 0.4 k/uL (0-1.0); Monocytes % (A) 4 %; Neutrophils # (A) 5.4 k/uL (1.3-7.7); Neutrophils % (A) 64 %; Platelet Count 263 k/uL (150-450); RBC 4.42 m/uL (3.80-5.40); RDW 14.7 % (11.5-15.5); WBC 8.4 k/uL (3.8-10.6)
[2019-08-29 07:00] LABS: African American GFR (CKD) >90 (>60 ml/min/1.73 sqM); Anion Gap 7 mmol/L; Blood Urea Nitrogen 21 mg/dL (7-17); Carbon Dioxide 26 mmol/L (22-30); Chloride 105 mmol/L (98-107); Glucose 123 mg/dL (74-99); Non-African American GFR(CKD) >90 (>60 ml/min/1.73 sqM); Potassium 4.2 mmol/L (3.5-5.1); Sodium 138 mmol/L (137-145)
[2019-08-29] MEDS: ASPIRIN 325 MG TAB PO SCH (08:52)
[2019-08-29] MEDS: METOPROLOL TARTRATE 25 MG TAB PO SCH (08:52)
[2019-08-29] MEDS: FENOFIBRATE 160 MG TAB PO SCH (08:53)
[2019-08-29] MEDS: CHOLECALCIFEROL 1,000 UNIT TAB PO SCH (08:53)
[2019-08-29] MEDS: MULTIVITAMINS, THERA 1 EACH TAB PO SCH (08:53)
[2019-08-29] MEDS: APIXABAN 5 MG TAB PO SCH (08:53)
[2019-08-29] MEDS: EZETIMIBE 10 MG TAB PO SCH (08:58)
[2019-08-29] MEDS: LISINOPRIL-HCTZ 20-12.5 MG 1 EACH TAB PO SCH (08:58)
[2019-08-29 11:35] LABS: Glucose,Whole Blood 91 mg/dL (75-99)
--- NOTE | 2019-08-29 11:40 | P.PN ---
Subjective Progress Note Date: 08/29/19 This is a 63-year-old female with history of paroxysmal atrial fibrillation, hypertension, hyperlipidemia, she was initially admitted to the hospital because of transient loss of vision. Seen in consultation by Dr. Jackson. We checked orthostatics which came back to be negative. Echocardiogram with Doppler study was performed which revealed a normal left ventricular systolic function. Objective - Vital Signs Vital signs: Vital Signs Temp 97.8 F 08/29/19 04:21 Pulse 60 08/29/19 04:21 Resp 16 08/29/19 04:21 BP 171/88 08/29/19 04:21 Pulse Ox 97 08/29/19 04:21 Intake & Output 08/28/19 08/29/19 08/29/19 18:59 06:59 18:59 Intake Total 580 360 Balance 580 360 Weight 99.4 kg Intake: Oral 580 360 Other: # Voids 3 1 2 - Exam PHYSICAL EXAMINATION: GENERAL: 63-year-old female in no acute distress at the time of my examination HEENT: Head is atraumatic, normocephalic. Pupils equal, round. Sclera anicteric. Conjunctiva are clear. Mucous membranes of the mouth are moist. Neck is supple. There is no elevated jugular venous pressure. No carotid bruit is heard. HEART EXAMINATION: Heart S1, S2 normal. No murmur or gallop heard. CHEST EXAMINATION: Lungs are clear to auscultation and precussion. No chest wall tenderness is noted on palpation or with deep breathing. ABDOMEN: Soft, nontender. Bowel sounds are heard. No organomegaly noted. EXTREMITIES: 2+ peripheral pulses with no evidence of peripheral edema and no calf tenderness noted. NEUROLOGIC patient is awake, alert and oriented 3 . - Labs CBC & Chem 7: 08/29/19 05:36 08/29/19 05:36 Labs: Abnormal Lab Results - Last 24 Hours (Table) 08/28/19 08/28/19 08/28/19 Range/Units 12:10 16:33 21:04 BUN (7-17) mg/dL Glucose (74-99) mg/dL POC Glucose (mg/dL) 139 H 128 H 140 H (75-99) mg/dL 08/29/19 08/29/19 Range/Units 05:36 06:03 BUN 21 H (7-17) mg/dL Glucose 123 H (74-99) mg/dL POC Glucose (mg/dL) 111 H (75-99) mg/dL Assessment and Plan Plan: Assessment and plan #1 transient loss of vision #2 history of meningioma the frontal lobe #3 history of cerebral aneurysm status post coil #4 paroxysmal atrial fibrillation Plan From cardiology's perspective, patient may be able to be discharged home once cleared by neurology and primary. We will follow her along now on an as-needed basis only, please don't hesitate to call with any questions. DNP note has been reviewed, I agree with a documented findings and plan of care. Patient was seen and examined.
[2019-08-29 12:36] VITALS: RESP 12
--- NOTE | 2019-08-29 17:16 | P.PN ---
Subjective Progress Note Date: 08/29/19 Patient offers no new complaints. Patient states that she does have history of intermittent lightheadedness and vertigo off and on for 10 years. The vertigo gets worse when she gets seasonal ALLERGIES. The visual symptoms that she had while driving was completely different. Patient is being scheduled for MRI of the brain. Objective - Vital Signs Vital signs: Vital Signs Temp 97.8 F 08/29/19 12:00 Pulse 54 L 08/29/19 12:00 Resp 12 08/29/19 12:00 BP 154/86 08/29/19 12:00 Pulse Ox 96 08/29/19 12:00 Intake & Output 08/28/19 08/29/19 08/29/19 18:59 06:59 18:59 Intake Total 580 900 Balance 580 900 Weight 99.4 kg Intake: Oral 580 900 Other: # Voids 3 1 1 - Exam Patient's mental status, speech and language functions are normal. Muscle str ength normal. Nonfocal exam. - Labs CBC & Chem 7: 08/29/19 05:36 08/29/19 05:36 Labs: Abnormal Lab Results - Last 24 Hours (Table) 08/28/19 08/29/19 08/29/19 Range/Units 21:04 05:36 05:36 BUN 21 H (7-17) mg/dL Glucose 123 H (74-99) mg/dL POC Glucose (mg/dL) 140 H (75-99) mg/dL Hemoglobin A1c 7.0 H (4.0-6.0) % 08/29/19 Range/Units 06:03 BUN (7-17) mg/dL Glucose (74-99) mg/dL POC Glucose (mg/dL) 111 H (75-99) mg/dL Hemoglobin A1c (4.0-6.0) % Assessment and Plan Assessment: * 63-year-old female admitted with possible TIA manifesting with transient bilateral vision loss and dizziness, that resolved in about 10-15 seconds. Patient's current neurological examination is nonfocal. There was no alteration in awareness or level of consciousness, therefore doubt seizure. Patient apparently had stopped Eliquis for a couple months ago, however resumed taking Eliquis about a month ago. Uncertain if not taking Eliquis at that time may have triggered current TIA. * Hypertension * Diabetes * Hyperlipidemia * History of cerebral aneurysm, right ICA, status post endovascular coiling in November 2018. * Very small left frontal meningioma, stable, likely asymptomatic. * X tobacco user. Plan: * Patient's current neurological examination is normal. * CTA of head and neck showed no evidence of stenosis, or recurrence of aneurysm. * Continue Eliquis and aspirin. * Hemoglobin A1c 7.0. Total cholesterol 221, LDL 107, HDL 91, triglycerides 113. * 2-D echo showed sinus rhythm, moderate concentric LVH. EF 55-60%. Left atrial size is normal. * EEG was essentially normal. A single left temporal sharp wave was seen, which is of unclear etiology. Patient not a candidate for antiepileptic medication, as this event was probably not a seizure. Patient was recommended to follow up with her neurologist, and perhaps repeat an EEG to rule out any obvious epileptiform activity. * Patient has been scheduled for an MRI of the brain. If negative, then clear for discharge.
[2019-08-29 17:21] VITALS: BP 120/84; PULSE 64; TEMP 97.9
[2019-08-29 17:24] LABS: Glucose,Whole Blood 96 mg/dL (75-99)
--- NOTE | 2019-08-29 18:03 | MR ---
EXAMINATION TYPE: MR brain wo/w con DATE OF EXAM: 08/29/2019 COMPARISON: 10/17/2018 HISTORY: Dizziness, yaneth hearing loss, brain lesion CONTRAST: Performed utilizing 10 mL intravenous Gadavist gadolinium contrast. TECHNIQUE: Multiplanar, multiecho imaging on a 3.0 Amy magnet is performed through the brain. Stud y is performed within 24 hours of arrival to the hospital. The craniovertebral junction is normal. The pituitary is normal. Diffusion-weighted imaging is performed. No abnormal hyperintensity is present to suggest an acute i ntracranial infarct or acute ischemic change. There are a few punctate subcortical white matter changes in the frontal lobes. These are stable from comparison. There is a 1.2 x 0.7 cm enhancing lesion along the left anterior falx. This comes in close approximat ion with the frontal lobe. No vasogenic edema is evident. Findings are compatible with a meningioma. No additional masses are evident. Ventricles and sulci are appropriate for the patient age. IMPRESSIONS: 1. Small meningioma along the frontal region. 2. Nonspecific punctate subcortical white matter changes, likely on the basis of chronic white matter ischemic change.
--- NOTE | 2019-08-29 23:40 | DS ---
DISCHARGE SUMMARY FINAL DIAGNOSES: 1. Transient bilateral vision loss, possible acute transient ischemic attack, rule out cardiac arrhythmia. 2. Hyperlipidemia. 3. Acute urinary tract infection present on admission. 4. Increased AST/ALT. 5. History of atrial fibrillation. 6. History of chronic obstructive pulmonary disease. 7. Hypertension. 8. Hyperlipidemia. 9. Degenerative joint disease. 10.History of meningioma. 11.History of endovascular stenting on the coiling of the right internal carotid artery aneurysm. 12.Degenerative joint disease. 13.Remote history of nicotine dependence. DISCHARGE DISPOSITION: The patient being discharged in stable condition with guarded prognosis. HISTORY OF PRESENT ILLNESS: This 63-year-old woman with a past medical history of multiple medical problems was admitted to the hospital with difficulty in vision as well as dizziness. The patient had transient bilateral vision loss which improved within a few seconds. The patient monitored closely, evaluated by Cardiology and as well as neurology. Neurology recommend outpatient followup. MRA scan is pending at this time. The patient also had followups evaluations in [facility] Neurosurgery and Neurology. Also I recommend the patient follow up with [facility] Neurology with MRI scan otherwise. I also recommend the patient to follow up with Dr. Solorzano in Cardiology and consider the possibility of Reveal monitor, especially because the patient previously had a Holter monitor which noted no any acute abnormality apparently. Overall the patient is stable. However the prognosis guarded. The patient being discharged in stable condition with guarded prognosis. PHYSICAL EXAMINATION: On exam, vitals are stable. Cardiovascular system: S1, S2. Abdomen soft. Nervous system: No focal deficits. DISCHARGE ADVICE AND MEDICATIONS: 1. Diet is cardiac diet. 2. Activity limited until followup. 3. Follow up with Dr. Juárez 2-3 days. 4. Follow up with Dr. Solorzano as recommended. 5. Follow up with the [facility] neurologist with MRA as recommended. DISCHARGE MEDICATIONS: 1. Ecotrin 320 mg p.o. daily. 2. Fenofibrate 140 mg p.o. daily. 3. Luther-3 fatty acids 1 p.o. daily. 4. Glucosamine 1 tablet p.o. daily. 5. Lopressor 12.5 mg b.i.d. 6. Multivitamins 1 p.o. daily. 7. Tirosint 50 mcg q.a.m. 8. Vitamin B complex 1 p.o. daily. 9. Vitamin D3 1000 daily. 10.Lisinopril hydrochlorothiazide 20/12.5 mg p.o. daily. 11.Ceftin 500 mg p.o. b.i.d. for 3 days. 12.Eliquis 5 mg p.o. b.i.d. 13.Zetia 10 mg p.o. daily. The total cholesterol is 221 and LDL is 101 and ALT is 91 to be followed up in the outpatient setting and adjust medications. Once again the patient being discharged in stable condition with guarded prognosis. MMODL / IJN: [id number] /
== END 2019-08-29 19:15 | disposition home or self-care (01) | DRG 69 ==
LOC: EC 18:09 → 3SCARD 21:32
PROVIDERS: ADMIT Hospitalist; ATTEND Hospitalist
DX: G45.9 Transient cerebral ischemic attack, unspecified (principal); N39.0 Urinary tract infection, site not specified; E03.9 Hypothyroidism, unspecified; E11.9 Type 2 diabetes mellitus without complications; E78.5 Hyperlipidemia, unspecified; G43.909 Migraine, unspecified, not intractable, without status migrainosus; I10 Essential (primary) hypertension; I25.10 Atherosclerotic heart disease of native coronary artery without angina pectoris; I48.0 Paroxysmal atrial fibrillation; J44.9 Chronic obstructive pulmonary disease, unspecified; M19.90 Unspecified osteoarthritis, unspecified site; J30.2 Other seasonal allergic rhinitis; Z88.5 Allergy status to narcotic agent; Z88.0 Allergy status to penicillin; Z88.8 Allergy status to other drugs, medicaments and biological substances; Z91.041 Radiographic dye allergy status; Z72.0 Tobacco use; Z79.82 Long term (current) use of aspirin; Z79.890 Hormone replacement therapy; Z79.899 Other long term (current) drug therapy; Z82.49 Family history of ischemic heart disease and other diseases of the circulatory system; Z79.01 Long term (current) use of anticoagulants; Z86.011 Personal history of benign neoplasm of the brain; Z86.73 Personal history of transient ischemic attack (TIA), and cerebral infarction without residual deficits; Z90.710 Acquired absence of both cervix and uterus; Z90.49 Acquired absence of other specified parts of digestive tract; Z98.890 Other specified postprocedural states
CPT/HCPCS: 36415; 70450; 70496; 70498; 70553; 71046; 80048; 80053; 80061; 81001; 83036; 83735; 84484; 85025; 85610; 85730; 93005; 93306; 95816; 96361; 96374; 96375; 99285

== ENCOUNTER 2019-09-22 21:07 | Inpatient (IN) | payer BC, MEDICARE ==
[2019-09-22] MEDS ORDERED: DILTIAZEM DRIP BOLUS FROM BAG 1 MG SOLN IV ONE (21:38)
[2019-09-22] MEDS ORDERED: SODIUM CHLORIDE 0.9% 1,000 ML IV STA (21:38)
[2019-09-22] MEDS ORDERED: DILTIAZEM 125 MG in SODIUM CHLORIDE 0.9% 100 ML IV SCH (22:00)
--- NOTE | 2019-09-22 22:12 | ED ---
Chest Pain HPI - General Chief Complaint: Chest Pain Stated Complaint: Chest pain Time Seen by Provider: 09/22/19 21:17 Source: patient Mode of arrival: wheelchair Limitations: no limitations - History of Present Illness Initial Comments: This patient is a 63-year-old woman who presents to be evaluated for racing heart and chest pressure. She states that she is intermittently over the past week been having what felt like a rapid heart rate, but it would resolve. This this evening she states that it felt like the rapid heart rate stayed and she was having chest symptoms. She states that she had seen her health and safety specialist, Dr. Solorzano, who had placed a portable monitor in August that she was to wear for a month. They also had adjusted her dose of beta nicol up initially and then on Tuesday this was decreased due to side effects of the metoprolol. She does have history of previous A. fib diagnosed in April. Patient denies diaphoresis, dyspnea, nausea or vomiting and syncope. MD Complaint: chest pain, other -: hour(s) Onset: during rest Pain Location: substernal Pain Radiation: none Quality: tightness Consistency: constant Improves With: nothing Worsens With: nothing Other Symptoms: palpitations Treatments Prior to Arrival: none - Related Data Home Medications Medication Instructions Recorded Confirmed Levothyroxine Sodium [Tirosint] 50 mcg PO QAM 10/08/15 08/27/19 Cholecalciferol [Vitamin D3 (25 1,000 unit PO DAILY 05/11/18 08/27/19 Mcg = 1000 Iu)] Fenofibrate Nanocrystallized 145 mg PO DAILY 05/11/18 08/27/19 [Fenofibrate] Glucosam/Jadiel-Msm1/C/Keith/Bosw 1 tab PO DAILY 05/11/18 08/27/19 [Glucosamine-Chondroitin Tablet] Multivitamin,Therapeutic [Thera] 1 tab PO DAILY 05/11/18 08/27/19 [place]-3 Fatty Acids/Fish Oil [Fish 1 cap PO DAILY 05/11/18 08/27/19 Oil 1,000 mg Softgel] Vitamin B Complex 1 cap PO DAILY 05/11/18 08/27/19 Aspirin EC [Ecotrin] 325 mg PO DAILY 08/27/19 08/27/19 Lisinopril-Hctz 20-12.5 mg 1 tab PO DAILY 08/27/19 08/27/19 [Zestoretic 20-12.5] Metoprolol Tartrate [Lopressor] 12.5 mg PO BID 08/27/19 08/27/19 Previous Rx's Medication Instructions Recorded Apixaban [Eliquis] 5 mg PO BID #30 tab 05/13/18 Ezetimibe [Zetia] 10 mg PO DAILY #30 tab 05/13/18 Cefuroxime Axetil [Ceftin] 500 mg PO BID 3 Days #6 tab 08/29/19 Allergies Allergy/AdvReac Type Severity Reaction Status Date / Time Iodinated Contrast Media Allergy Anaphylaxis Verified 09/22/19 21:26 [Iodinated Contrast Media - IV Dye] Penicillins Allergy Unknown Verified 09/22/19 21:26 Childhood hydrocodone bitartrate AdvReac dizzyness, Verified 09/22/19 21:26 [From Vicodin] flushed metformin AdvReac Unknown Verified 09/22/19 21:26 Review of Systems ROS Statement: Those systems with pertinent positive or pertinent negative responses have been documented in the HPI. ROS Other: All systems not noted in ROS Statement are negative. Constitutional: Denies: fever, chills, weakness Respiratory: Denies: cough, dyspnea Cardiovascular: Reports: as per HPI, chest pain, palpitations. Denies: orthopnea, edema, syncope Gastrointestinal: Denies: abdominal pain, nausea, vomiting Genitourinary: Denies: dysuria, hematuria Musculoskeletal: Denies: back pain Skin: Denies: rash Neurological: Denies: headache, weakness, numbness Psychiatric: Reports: anxiety EKG Findings - EKG Results: EKG: interpreted by ERMD EKG shows: atrial fibrillation (Rate approximate 153 bpm) - Blocks, [place], Hypertrophy, ST Abn: Repolarization changes or abnormalities: nonspecific abnormality, ST segment, and/or T wave Past Medical History Past Medical History: Atrial Fibrillation, COPD, Diabetes Mellitus, Hyperlipidemia, Hypertension, Thyroid Disorder Additional Past Medical History / Comment(s): BACK AND KNEE PAIN, new onset atrial fib, brain tumor History of Any Multi-Drug Resistant Organisms: None Reported Past Surgical History: Breast Surgery, Hysterectomy, Orthopedic Surgery, Tonsillectomy Additional Past Surgical History / Comment(s): RT KNEE ARTHROSCOPY, BREAST BIOPSYx2, PARTIAL THYROIDECTOMY, stent and coil of brain aneurysm Additional Past Anesthesia/Blood Transfusion Reaction / Comment(s): "GET'S REALLY DIZZY" HAD TO STAY LONGER IN POST OP Past Psychological History: No Psychological Hx Reported Smoking Status: Former smoker Past Alcohol Use History: Rare Past Drug Use History: None Reported - Past Family History Mother Family Medical History: Hypertension Additional Family Medical History / Comment(s): mitral valve repairs General Exam Limitations: no limitations General appearance: alert, in no apparent distress Head exam: Present: atraumatic, normocephalic Eye exam: Present: normal appearance. Absent: scleral icterus, conjunctival injection ENT exam: Present: normal oropharynx Neck exam: Present: normal inspection Respiratory exam: Present: normal lung sounds bilaterally. Absent: respiratory distress, wheezes, rales, rhonchi, stridor Cardiovascular Exam: Present: tachycardia, irregular rhythm, normal heart sounds. Absent: systolic murmur, diastolic murmur, rubs, gallop GI/Abdominal exam: Present: soft. Absent: distended, tenderness, guarding, rebound, rigid, mass Extremities exam: Present: normal inspection, normal capillary refill. Absent: pedal edema, calf tenderness Back exam: Present: normal inspection. Absent: CVA tenderness (R), CVA tenderness (L) Neurological exam: Present: alert Skin exam: Present: warm, dry, intact, normal color. Absent: rash Course Vital Signs 09/22/19 09/22/19 09/22/19 21:24 23:20 23:36 Temperature 98.9 F Pulse Rate 152 H 116 H 113 H Respiratory 28 H 18 16 Rate Blood Pressure 133/95 93/53 110/73 O2 Sat by Pulse 97 972 H 100 Oximetry Disposition Clinical Impression: Atrial fibrillation with rapid ventricular response, Hyperglycemia Disposition: HOME SELF-CARE Condition: Good Is patient prescribed a controlled substance at d/c from ED?: No Referrals: Saloni Juárez MD [Primary Care Provider] - 1-2 days
--- NOTE | 2019-09-22 22:18 | XR ---
EXAMINATION TYPE: XR chest 1V portable DATE OF EXAM: 09/22/2019 COMPARISON: 08/27/2019 HISTORY: Dysrhythmia TECHNIQUE: FINDINGS: Heart and mediastinum are normal. Lungs are clear. Diaphragm is normal. Bony thorax is inta ct. There are chest leads. IMPRESSION: No active cardiopulmonary disease. Normal heart. No change.
[2019-09-22 22:26] LABS: Albumin 4.5 g/dL (3.5-5.0); Calcium 9.7 mg/dL (8.4-10.2); Potassium 3.6 mmol/L (3.5-5.1); Total Bilirubin 0.2 mg/dL (0.2-1.3); Total Protein 6.7 g/dL (6.3-8.2)
[2019-09-22 22:49] LABS: INR 0.9 (<1.2); Partial Thromboplastin Time 24.7 sec (22.0-30.0); Prothrombin Time 9.6 sec (9.0-12.0)
[2019-09-22 23:10] LABS: HCT 38.4 % (34.0-46.0); HGB 12.5 gm/dL (11.4-16.0); Hypochromasia Slight; MCHC 32.6 g/dL (31.0-37.0); MCV 85.7 fL (80.0-100.0); Mean Platelet Volume 11.6; Platelet Count 221 k/uL (150-450); Poikilocytosis Slight; RBC 4.48 m/uL (3.80-5.40); RDW 15.9 % (11.5-15.5); WBC 6.7 k/uL (3.8-10.6)
[2019-09-22 23:58] LABS: Basophils # (M) 0.07 k/uL (0-0.2); Large Platelets Present; Lymphocytes # (M) 2.81 k/uL (1.0-4.8); Monocytes # (M) 0.54 k/uL (0-1.0); Neutrophils # (M) 3.28 k/uL (1.3-7.7); Neutrophils % (M) 49 %; Nucleated Red Blood Cells 0 /100 WBC (0-0); Total Cells Counted 100
[2019-09-23] MEDS ORDERED: NITROGLYCERIN SL TABS 0.4 MG TAB SUBLINGUAL PRN (00:21)
[2019-09-23 00:42] LABS: Appearance,Urine Clear (Clear); Bilirubin,Urine Negative (Negative); Blood,Urine Negative (Negative); Color,Urine Yellow; Glucose,Urine (UA) Negative (Negative); Ketones,Urine Negative (Negative); Leukocyte Esterase,Urine Negative (Negative); Nitrite,Urine Negative (Negative); PH, Urine 6.5 (5.0-8.0); Protein,Urine Negative (Negative); Specific Gravity,Urine 1.011 (1.001-1.035); Urobilinogen,Urine <2.0 mg/dL (<2.0)
[2019-09-23 03:56] VITALS: RESP 18
[2019-09-23 06:07] LABS: Glucose,Whole Blood 138 mg/dL (75-99)
[2019-09-23] MEDS: INSULIN ASPART (NovoLOG) 100 UNIT/ML VIAL SQ SCH ×2 (06:09→12:56)
[2019-09-23] MEDS ORDERED: LEVOTHYROXINE 50 MCG TAB PO SCH (06:30)
[2019-09-23 08:05] VITALS: BP 120/73; PULSE 63; TEMP 98.1
[2019-09-23] MEDS: SODIUM CHLORIDE 0.9% 1,000 ML IV SCH ×2 (08:14→14:17)
[2019-09-23] MEDS ORDERED: LISINOPRIL-HCTZ 20-12.5 MG 1 EACH TAB PO SCH (09:00)
[2019-09-23] MEDS ORDERED: EZETIMIBE 10 MG TAB PO SCH (09:00)
[2019-09-23] MEDS ORDERED: APIXABAN 5 MG TAB PO SCH (09:00)
[2019-09-23] MEDS ORDERED: FENOFIBRATE 160 MG TAB PO SCH (09:00)
[2019-09-23] MEDS ORDERED: CHOLECALCIFEROL 1,000 UNIT TAB PO SCH (09:00)
[2019-09-23] MEDS ORDERED: METOPROLOL TARTRATE 12.5 MG TAB PO SCH (09:00)
--- NOTE | 2019-09-23 10:46 | P.CRDCN ---
History of Present Illness History of present illness: HISTORY OF PRESENTING ILLNESS This is a pleasant 63-year-old female past medical history significant for paroxysmal atrial fibrillation on long-term anticoagulation, hypertension a nd dyslipidemia. She follows in the office with Dr. Solorzano. We have been asked to see in consultation for atrial fibrillation with rapid ventricular response. She presented to the emergency department yesterday with symptoms of palpitations and shortness of breath. EKG obtained revealed atrial fibrillation with heart rate of 153. She was initiated on Cardizem infusion. Through the night she spontaneously converted to sinus mechanism. This morning the 5 range. Cardizem has been discontinued. The patient is quite tearful during my exam and states for the previous 16 months she has not felt well. She states her heart rates fluctuate quite significantly and she makes adjustments to her Lo pressor regularly with Dr. Solorzano and Dr. Parikh. She is currently wearing an outpatient event monitor. Currently maintained on Lopressor 12.5 mg twice a day, Zestoretic 20/12.5 mg daily, Eliquis 5 mg twice a day, zetia 10 mg daily and fenofibrate 145 mg daily. Most recent echocardiogram obtained 08/28/2019 reveals preserved LV systolic function with ejection fraction 55-60%. She underwent cardiac catheterization at the time of her initial diagnosis of atrial fibrillation in 2018 revealing a mildly calcified right and left coronary system with no obstructive disease. Laboratory data reviewed, cardiac enzymes negative 2, creatinine 0.8, TSH 2.18, potassium 3.6, magnesium 2.0. REVIEW OF SYSTEMS At the time of my exam: CONSTITUTIONAL: Denies fever or chills. CARDIOVASCULAR: Denies chest pain, shortness of breath, orthopnea, PND or palpitations. RESPIRATORY: Denies cough. GASTROINTESTINAL: Denies abdominal pain, diarrhea, constipation, nausea or vomiting. MUSCULOSKELETAL: Denies myalgias. NEUROLOGIC: Denies numbness, tingling or weakness. ENDOCRINE: Denies fatigue, weight change, polydipsia or polyurina. GENITOURINARY: Denies burning, hematuria or urgency with micturation. HEMATOLOGIC: Denies history of anemia or bleeding. PHYSICAL EXAMINATION Blood pressure 120/73 heart rate 63 afebrile and maintaining oxygen saturation on room air. CONSTITUTIONAL: No apparent distress. HEENT: Head is normocephalic. Pupils are equal, round. Sclerae anicteric. Mucous membranes of the mouth are moist. No JVD. No carotid bruit. CHEST EXAMINATION: Lungs are clear to auscultation. No chest wall tenderness is noted on palpation or with deep breathing. HEART EXAMINATION: Regular rate and rhythm. S1, S2 heard. No murmurs, gallops or rub. ABDOMEN: Soft, nontender. Positive bowel sounds. EXTREMITIES: 2+ peripheral pulses, no lower extremity edema and no calf tenderness. NEUROLOGIC EXAMINATION: Patient is awake, alert and oriented x3. ASSESSMENT Paroxysmal atrial fibrillation with rapid ventricular response, converted to sinus mechanism Hypertension Dyslipidemia, intolerant to statins PLAN Cardizem has been discontinued as she has converted to sinus mechanism. Continue Eliquis, Lopressor, lisinopril, Zetia and fenofibrate as previously ordered. Stable for discharge to follow-up with Dr. Solorzano in the office. The patient does have an event monitor in place. We require further evaluation to restore persistent sinus mechanism in the form of arrhythmia control medications versus an ablation. This can be discussed with Dr. Solorzano her follow-up visit. Thank you kindly for this consultation. Nurse Practitioner note has been reviewed, I agree with a documented findings and plan of care. Patient was seen and examined. Past Medical History Past Medical History: Atrial Fibrillation, COPD, Diabetes Mellitus, Hyperlipidemia, Hypertension, Thyroid Disorder Additional Past Medical History / Comment(s): BACK AND KNEE PAIN, new onset atrial fib, brain tumor History of Any Multi-Drug Resistant Organisms: None Reported Past Surgical History: Breast Surgery, Hysterectomy, Orthopedic Surgery, Tonsillectomy Additional Past Surgical History / Comment(s): RT KNEE ARTHROSCOPY, BREAST BIOPSYx2, PARTIAL THYROIDECTOMY, stent and coil of brain aneurysm Additional Past Anesthesia/Blood Transfusion Reaction / Comment(s): "GET'S REALLY DIZZY" HAD TO STAY LONGER IN POST OP Past Psychological History: No Psychological Hx Reported Smoking Status: Former smoker Past Alcohol Use History: Rare Additional Past Alcohol Use History / Comment(s): STARTED SMOKING AT AGE 16, ON AND OFF, 1PPD Past Drug Use History: None Reported - Past Family History Mother Family Medical History: Hypertension Additional Family Medical History / Comment(s): mitral valve repairs Medications and Allergies Home Medications Medication Instructions Recorded Confirmed Type Levothyroxine Sodium [Tirosint] 50 mcg PO QAM 10/07/08/27/19 History Cholecalciferol [Vitamin D3 (25 1,000 unit PO DAILY 10/25/18 02/10/20 History Mcg = 1000 Iu)] Fenofibrate Nanocrystallized 145 mg PO DAILY 05/11/18 08/27/19 History [Fenofibrate] Glucosam/Jadiel-Msm1/C/Keith/Bosw 1 tab PO DAILY 05/11/18 08/27/19 History [Glucosamine-Chondroitin Tablet] Multivitamin,Therapeutic [Thera] 1 tab PO DAILY 05/11/18 08/27/19 History [place]-3 Fatty Acids/Fish Oil [Fish 1 cap PO DAILY 05/11/18 08/27/19 History Oil 1,000 mg Softgel] Vitamin B Complex 1 cap PO DAILY 05/11/18 08/27/19 History Apixaban [Eliquis] 5 mg PO BID #30 tab 05/13/18 08/27/19 Rx Ezetimibe [Zetia] 10 mg PO DAILY #30 tab 05/13/18 08/27/19 Rx Aspirin EC [Ecotrin] 325 mg PO DAILY 08/27/19 08/27/19 History Lisinopril-Hctz 20-12.5 mg 1 tab PO DAILY 08/27/19 08/27/19 History [Zestoretic 20-12.5] Metoprolol Tartrate [Lopressor] 12.5 mg PO BID 08/27/19 08/27/19 History Cefuroxime Axetil [Ceftin] 500 mg PO BID 3 Days #6 tab 08/29/19 Rx Allergies Allergy/AdvReac Type Severity Reaction Status Date / Time Iodinated Contrast Media Allergy Anaphylaxis Verified 09/22/19 21:26 [Iodinated Contrast Media - IV Dye] Penicillins Allergy Unknown Verified 09/22/19 21:26 Childhood hydrocodone bitartrate AdvReac dizzyness, Verified 09/22/19 21:26 [From Vicodin] flushed metformin AdvReac Unknown Verified 09/22/19 21:26 Physical Exam Vitals: Vital Signs Temp Pulse Pulse Resp BP BP Pulse Ox 09/23/19 08:04 98.1 F 63 18 120/73 96 09/23/19 05:10 53 L 18 120/74 98 09/23/19 03:05 97.8 F 107 H 18 119/84 96 09/23/19 00:40 128 H 20 103/71 97 09/23/19 00:30 125 H 16 94 L 09/23/19 00:20 123 H 12 97/77 97 09/23/19 00:10 137 H 19 114/79 99 09/23/19 00:00 107 H 14 117/84 96 09/22/19 23:50 112 H 15 117/84 95 09/22/19 23:40 99 14 110/75 96 09/22/19 23:36 113 H 16 110/73 100 09/22/19 23:30 113 H 16 93/53 97 09/22/19 23:29 122 H 10 L 93/53 97 09/22/19 23:20 116 H 18 93/53 972 H 09/22/19 21:24 98.9 F 152 H 28 H 133/95 97 Intake and Output 09/22/19 09/23/19 09/23/19 21:59 06:59 14:59 Intake Total 240 Balance 240 Intake: Oral 240 Other: Weight Results 09/22/19 21:32 09/22/19 21:32 Cardiac Enzymes 09/22/19 09/22/19 09/23/19 Range/Units 21:32 21:32 03:28 AST 44 H (14-36) U/L Troponin I <0.012 0.023 (0.000-0.034) ng/mL 09/23/19 Range/Units 09:04 AST (14-36) U/L Troponin I 0.022 (0.000-0.034) ng/mL Coagulation 09/22/19 Range/Units 21:32 PT 9.6 (9.0-12.0) sec APTT 24.7 (22.0-30.0) sec CBC 09/22/19 Range/Units 21:32 WBC 6.7 (3.8-10.6) k/uL RBC 4.48 (3.80-5.40) m/uL Hgb 12.5 (11.4-16.0) gm/dL Hct 38.4 (34.0-46.0) % Plt Count 221 (150-450) k/uL Comprehensive Metabolic Panel 09/22/19 Range/Units 21:32 Sodium 137 (137-145) mmol/L Potassium 3.6 (3.5-5.1) mmol/L Chloride 103 (98-107) mmol/L Carbon Dioxide 25 (22-30) mmol/L BUN 26 H (7-17) mg/dL Creatinine 0.80 (0.52-1.04) mg/dL Glucose 207 H (74-99) mg/dL Calcium 9.7 (8.4-10.2) mg/dL AST 44 H (14-36) U/L ALT 59 H (4-34) U/L Alkaline Phosphatase 72 (38-126) U/L Total Protein 6.7 (6.3-8.2) g/dL Albumin 4.5 (3.5-5.0) g/dL Current Medications Generic Name Dose Route Start Last Admin Trade Name Freq PRN Reason Stop Dose Admin Apixaban 5 mg 09/23/19 09:00 09/23/19 08:07 Eliquis PO 5 mg BID JAYDA Administration Cholecalciferol 1,000 unit 09/23/19 09:00 09/23/19 08:07 Vitamin D3 (25 Mcg = 1000 Iu) PO 1,000 unit DAILY JAYDA Administration Ezetimibe 10 mg 09/23/19 09:00 09/23/19 08:07 Zetia PO 10 mg DAILY JAYDA Administration Fenofibrate 160 mg 09/23/19 09:00 09/23/19 08:07 Lofibra PO 160 mg DAILY JAYDA Administration Lisinopril/HCTZ 1 each 09/23/19 09:00 09/23/19 08:12 Zestoretic 20-12.5 PO 1 each DAILY JAYDA Administration Diltiazem HCl 125 mg/ Sodium 125 mls @ 5 mls/hr 09/22/19 22:00 09/22/19 21:51 Chloride IV 5 mg/hr .Q24H JAYDA 5 mls/hr Administration 5 MG/HR Sodium Chloride 1,000 mls @ 100 mls/hr 09/23/19 00:30 09/23/19 08:14 Saline 0.9% IV 100 mls/hr .Q10H JAYDA Administration Insulin Aspart 0 unit 09/23/19 07:30 09/23/19 06:09 Novolog SQ Not Given ACHS [facility] Protocol Levothyroxine Sodium 50 mcg 09/23/19 06:30 09/23/19 05:50 Synthroid PO Not Given DAILY@0630 [facility] Metoprolol Tartrate 12.5 mg 09/23/19 09:00 09/23/19 08:06 Lopressor PO 12.5 mg BID JAYDA Administration Nitroglycerin 0.4 mg 09/23/19 00:21 Nitrostat SUBLINGUAL Q5M PRN Chest Pain Intake and Output 09/22/19 09/23/19 09/23/19 21:59 06:59 14:59 Intake Total 240 Balance 240 Intake: Oral 240 Other: Weight 09/22/19 21:32 09/22/19 21:32
[2019-09-23 11:34] LABS: Glucose,Whole Blood 119 mg/dL (75-99)
--- NOTE | 2019-09-23 18:05 | HP ---
HISTORY AND PHYSICAL This is a combined history and physical discharge summary. HISTORY AND PHYSICAL/DISCHARGE SUMMARY: DATE OF SERVICE: 09/23/2019 CHIEF COMPLAINT: Palpitations, chest pressure. HISTORY OF PRESENT ILLNESS: This 63-year-old woman with a past medical history of multiple medical problems including history of atrial fibrillation, COPD, diabetes mellitus, type 2, history of DJD, history of breast surgery being followed Dr. Juárez in the outpatient was feeling palpitations over the past week intermittently. Patient also noted to have some chest pressure. Patient came to [facility] and was admitted for further evaluation and treatment. Cardiology, Dr. Solorzano, put a portable monitor on her and is monitoring closely. There is no history of fever, rigors or chills. No history of headache, loss of consciousness, seizures at this time. The patient was started on Cardizem drip and now overnight the patient spontaneously converted normal sinus rhythm. PAST MEDICAL HISTORY: History of atrial fibrillation, COPD, diabetes type 2, hyperlipidemia, hypertension, hypothyroidism, history of DJD. MEDICATIONS: Home medications are: 1. Vitamin B12 1 p.o. daily. 2. [place]-3 fatty acids p.o. daily. 3. Multivitamins. 4. Metoprolol 12.5 mg b.i.d. 5. Lisinopril 1 p.o. daily. 6. Synthroid 50 mg p.o. daily. 7. Glucosamine 1 tablet p.o. daily. 8. Amaryl 1 mg p.o. a.c. breakfast. 9. Fenofibrate 145 mg. 10.Zetia 10 mg p.o. daily. 11.Vitamin D 3000 daily. 12.Ecotrin 320 mg daily. 13.Eliquis 5 mg p.o. b.i.d. ALLERGIES: IODINATED CONTRAST DYES, PENICILLIN, HYDROCODONE, METFORMIN. FAMILY HISTORY: History of hypertension, mitral valve prolapse in the family. SOCIAL HISTORY: Previous history of smoking. No history of current smoking or alcohol intake. REVIEW OF SYSTEMS: ENT: No diminished vision. No diminished hearing. CARDIOVASCULAR system as mentioned earlier. RESPIRATORY: As mentioned earlier. GI no nausea or vomiting. no dysuria or hematuria. Nervous system: No numbness or weakness. ALLERGY/IMMUNOLOGY: No asthma or hayfever. MUSCULOSKELETAL as mentioned. Hematology: No history of anemia. ENDOCRINE: Hypothyroidism. CONSTITUTIONAL: As mentioned earlier. DERMATOLOGY: Negative. RHEUMATOLOGY: Negative. PSYCHIATRY: As mentioned earlier. PHYSICAL EXAMINATION: Alert and oriented times three. Pulse 63, blood pressure 127/73, respirations 18, temperature 98.2, pulse ox 98% on room air. HEENT is conjunctivae normal. Oral mucosa moist. NECK is no jugular venous distention. No carotid bruit. No lymph node enlargement. Cardiovascular system: S1, S2 muffled, irregular. No murmur. No thrills. RESPIRATIONS: Breath sounds diminished in the bases. No rhonchi. No crackles. ABDOMEN: Soft, nontender. No mass palpable. LEGS: No edema, no swelling. NERVOUS SYSTEM: Higher functions as mentioned. Moves all four limbs. No focal motor or sensory deficits. LYMPHATICS: No lymph nodes palpable in the neck, axillae or groin. SKIN: No ulcer, rash or bleeding. JOINTS: No active deforming arthropathy. LABS: At this time, glucose 138, 119. Troponins are noted 0.012 and 0.022. AST is 44 and ALT is 59. Glucose 207. UA is negative. CBC normal. ASSESSMENT: 1. Atrial fibrillation with fast ventricular rate. 2. History atrial fibrillation paroxysmal. 3. History of chronic obstructive pulmonary disease. 4. Diabetes mellitus type 2. 5. Hypertension. 6. Hyperlipidemia. 7. History of transient ischemic attack. 8. Increased AST, ALT; mild. 9. History of meningioma. 10.History of endovascular stenting and coiling of the right internal carotid artery aneurysm previously. 11.History of degenerative joint disease. 12.Remote history of nicotine dependence. RECOMMENDATIONS AND DISCUSSION: This 63-year-old woman who presented with multiple complex medical issues, at this time, I recommend to continue the current medications, management and symptomatic treatment. Cardiology saw the patient as mentioned earlier, the patient converted to normal sinus rhythm. Otherwise, the patient already has a 30 day monitoring placed on chest by Cardiology. So I would recommend discharge home and follow up closely with Dr. Juárez and Cardiology as recommended. Otherwise, we will continue to monitor. Resume the previous medications as listed above. Once again, the patient is stable but overall prognosis guarded. Discussed with the patient who understands and agrees. Further recommendations to follow. MMODL / IJN: [id number] /
== END 2019-09-23 15:20 | disposition home or self-care (01) | DRG 310 ==
LOC: EC 21:07 → 3SCARD 09-23 00:24
PROVIDERS: ADMIT Hospitalist; ATTEND Hospitalist
DX: I48.0 Paroxysmal atrial fibrillation (principal); E11.65 Type 2 diabetes mellitus with hyperglycemia; E78.5 Hyperlipidemia, unspecified; I10 Essential (primary) hypertension; J44.9 Chronic obstructive pulmonary disease, unspecified; M19.90 Unspecified osteoarthritis, unspecified site; E89.0 Postprocedural hypothyroidism; M54.9 Dorsalgia, unspecified; M25.569 Pain in unspecified knee; Z79.01 Long term (current) use of anticoagulants; Z79.82 Long term (current) use of aspirin; Z79.84 Long term (current) use of oral hypoglycemic drugs; Z79.890 Hormone replacement therapy; Z79.899 Other long term (current) drug therapy; Z87.891 Personal history of nicotine dependence; Z86.011 Personal history of benign neoplasm of the brain; Z95.828 Presence of other vascular implants and grafts; Z90.710 Acquired absence of both cervix and uterus; Z86.73 Personal history of transient ischemic attack (TIA), and cerebral infarction without residual deficits; Z86.79 Personal history of other diseases of the circulatory system; Z98.890 Other specified postprocedural states; Z88.5 Allergy status to narcotic agent; Z88.0 Allergy status to penicillin; Z88.8 Allergy status to other drugs, medicaments and biological substances; Z91.041 Radiographic dye allergy status; Z82.49 Family history of ischemic heart disease and other diseases of the circulatory system
CPT/HCPCS: 36415; 71045; 80053; 81003; 83735; 84443; 84484; 85025; 85610; 85730; 93005; 94760; 96365; 96366; 96376; 99285

== ENCOUNTER → 2020-02-27 | Outpatient (CLI) | payer BC, MEDICARE ==
[2020-02-27 16:51] LABS: Albumin 4.6 g/dL (3.80-4.90); Albumin/Globulin Ratio 2.42 (1.60-3.17); Anion Gap 9.1 mmol/L (4.00-12.00); Calcium 9.5 mg/dL (8.7-10.3); Carbon Dioxide 26.9 mmol/L (21.6-31.8); Chol/HDL Ratio 2.61; Globulin 1.9 g/dL (1.6-3.3); LDL Cholesterol,Calculated 98.2 mg/dL (0.0-131.0); Non-African American GFR(CKD) 76.8 (60.0-200.0); Potassium 4.3 mmol/L (3.5-5.5); Total Bilirubin 0.4 mg/dL (0.2-1.2); Total Protein 6.5 g/dL (6.2-8.2); VLDL Calculation 23.8 mg/dL (5.00-40.00)
[2020-02-27 19:08] LABS: Urine Creatinine 206.1 mg/dL
== END | disposition home or self-care (01) ==
LOC: LABWHC1 08:50
PROVIDERS: ATTEND Internal Medicine Endocrinology, Diabetes & Metabolism
DX: E11.65 Type 2 diabetes mellitus with hyperglycemia (principal)
CPT/HCPCS: 36415; 80053; 80061; 82043; 82570; 83036; 84443

== ENCOUNTER → 2020-08-11 | Outpatient (CLI) | payer BC ==
[2020-08-11 16:07] LABS: T4, Free (Free Thyroxine) 1.5 ng/dL (0.80-1.80)
[2020-08-11 17:59] LABS: Hemoglobin A1C 6.9 % (4.0-6.0)
[2020-08-11 19:17] LABS: African American GFR (CKD) 104.6 (60.0-200.0); Albumin/Globulin Ratio 2.94 (1.60-3.17); Anion Gap 13.7 mmol/L (4.00-12.00); BUN/Creat Ratio 31.43 Ratio (12.00-20.00); Calcium 10.5 mg/dL (8.7-10.3); Carbon Dioxide 22.3 mmol/L (21.6-31.8); Chol/HDL Ratio 3.1; Globulin 1.7 g/dL (1.6-3.3); LDL Cholesterol,Calculated 123.2 mg/dL (0.0-131.0); Non-African American GFR(CKD) 90.3 (60.0-200.0); Potassium 4.2 mmol/L (3.5-5.5); Total Bilirubin 0.8 mg/dL (0.2-1.2); Total Protein 6.7 g/dL (6.2-8.2); VLDL Calculation 40.8 mg/dL (5.00-40.00)
[2020-08-11 19:56] LABS: Urine Creatinine 76.7 mg/dL
== END | disposition home or self-care (01) ==
LOC: LABWHC1 10:18
PROVIDERS: ATTEND Internal Medicine Endocrinology, Diabetes & Metabolism
DX: E11.65 Type 2 diabetes mellitus with hyperglycemia (principal); E78.5 Hyperlipidemia, unspecified; E55.9 Vitamin D deficiency, unspecified; I10 Essential (primary) hypertension
CPT/HCPCS: 36415; 80053; 80061; 82043; 82306; 82570; 83036; 84439; 84443

== ENCOUNTER → 2020-11-17 | Outpatient (CLI) | payer BC ==
[2020-11-17 20:13] LABS: African American GFR (CKD) 104.6 (60.0-200.0); Albumin 4.7 g/dL (3.80-4.90); Albumin/Globulin Ratio 2.47 (1.60-3.17); Anion Gap 6.6 mmol/L (4.00-12.00); BUN/Creat Ratio 32.86 Ratio (12.00-20.00); Calcium 9.8 mg/dL (8.7-10.3); Carbon Dioxide 29.4 mmol/L (21.6-31.8); Chol/HDL Ratio 3.34; Globulin 1.9 g/dL (1.6-3.3); LDL Cholesterol,Calculated 135.2 mg/dL (0.0-131.0); Non-African American GFR(CKD) 90.3 (60.0-200.0); Potassium 4.4 mmol/L (3.5-5.5); Total Bilirubin 0.7 mg/dL (0.2-1.2); Total Protein 6.6 g/dL (6.2-8.2); VLDL Calculation 37.8 mg/dL (5.00-40.00)
[2020-11-17 21:19] LABS: Hemoglobin A1C 6.5 % (4.0-6.0)
[2020-11-18 21:19] LABS: Microalbumin Creatinine Ratio <30 mg/g Creat (0-30); Urine Creatinine 55.3 mg/dL
== END | disposition home or self-care (01) ==
LOC: LABWHC1 10:07
PROVIDERS: ATTEND Internal Medicine Endocrinology, Diabetes & Metabolism
DX: E11.9 Type 2 diabetes mellitus without complications (principal); E03.8 Other specified hypothyroidism
CPT/HCPCS: 36415; 80053; 80061; 82043; 82570; 83036; 84443

== ENCOUNTER → 2020-12-25 | Outpatient (CLI) | payer BC ==
--- NOTE | 2020-12-31 11:11 | MM ---
Reason for exam: screening (asymptomatic). Last mammogram was performed 1 year and 6 months ago. History: Patient is postmenopausal and is nulliparous. Family history of breast cancer in paternal grandmother at age 80. Benign stereotactic core biopsy of the left breast, July 2016. Took estrogen for 2 years. Physical Findings: A clinical breast exam by your physician is recommended on an annual basis and results should be correlated with mammographic findings. MG 3D Screening Mammo W/Cad Bilateral CC and MLO view(s) were taken. Prior study comparison: June 19, 2019, bilateral MG 3d screening mammo w/cad. February 14, 2019, right breast MG 3d diag mammo w/cad RT. April 20, 2018, bilateral MG screening mammo w CAD. July 29, 2016, mammogram. There are scattered fibroglandular densities. Previous mammotome biopsy in the left breast. There is chronic nodularity bilaterally. No significant changes when compared with prior studies. ASSESSMENT: Negative, BI-RAD 1 RECOMMENDATION: Routine screening mammogram of both breasts in 1 year.
== END | disposition home or self-care (01) ==
LOC: RADMAMWWP 09:29
PROVIDERS: ATTEND Family Medicine
DX: Z12.31 Encounter for screening mammogram for malignant neoplasm of breast (principal); Z78.0 Asymptomatic menopausal state; Z80.3 Family history of malignant neoplasm of breast
CPT/HCPCS: 77063; 77067

== ENCOUNTER 2021-01-07 17:26 | Observation (INO) | payer BC, MEDICARE ==
[2021-01-07] MEDS ORDERED: ASPIRIN 81 MG PO STA (17:48)
[2021-01-07] MEDS ORDERED: NITROGLYCERIN OINT 1 INCH/GM PACKET TOPICAL STA (17:48)
[2021-01-07] MEDS ORDERED: SODIUM CHLORIDE 0.9% 500 ML 500 ML IV STA (17:48)
--- NOTE | 2021-01-07 17:52 | ED ---
General Adult HPI - General Chief complaint: Chest Pain Stated complaint: chest pain Time Seen by Provider: 01/07/21 17:30 Source: patient, family, RN notes reviewed, old records reviewed Mode of arrival: wheelchair - History of Present Illness Initial comments: This is a 65-year-old female who presents emergency department with past medical history significant for diabetes hypertension high cholesterol and is a former smoker. Patient states at home today she had excruciating chest pain that made her short of breath and had significant discomfort in her neck as well. Patient states that lasted for about 2 minutes and then it slowly subsided. Patient states currently she is chest pain-free. Patient denies any recent fever chills or cough. Patient states she was lightheaded at that time as well. Patient denies any headache patient denies numbness weakness. Patient denies any abdominal pain patient denies any nausea vomiting diarrhea per patient denies any swelling to legs or calf tenderness. Patient states she had a cardiac catheterization in 2018. - Related Data Home Medications Medication Instructions Recorded Confirmed Cholecalciferol [Vitamin D3 (25 1,000 unit PO DAILY 05/11/18 09/23/19 Mcg = 1000 Iu)] Fenofibrate Nanocrystallized 145 mg PO DAILY 05/11/18 09/23/19 [Fenofibrate] Glucosam/Jadiel-Msm1/C/Keith/Bosw 1 tab PO DAILY 05/11/18 09/23/19 [Glucosamine-Chondroitin Tablet] Multivitamin,Therapeutic [Thera] 1 tab PO DAILY 05/11/18 09/23/19 [place]-3 Fatty Acids/Fish Oil [Fish 1 cap PO DAILY 05/11/18 09/23/19 Oil 1,000 mg Softgel] Vitamin B Complex 1 cap PO DAILY 05/11/18 09/23/19 Aspirin EC [Ecotrin] 325 mg PO DAILY 08/27/19 09/23/19 Lisinopril-Hctz 20-12.5 mg 1 tab PO DAILY 08/27/19 09/23/19 [Zestoretic 20-12.5] Metoprolol Tartrate [Lopressor] 12.5 mg PO BID 08/27/19 09/23/19 Glimepiride [Amaryl] 1 mg PO [id number] 09/23/19 09/23/19 Levothyroxine Sodium [Synthroid] 50 mcg PO DAILY 09/23/19 09/23/19 Previous Rx's Medication Instructions Recorded Apixaban [Eliquis] 5 mg PO BID #30 tab 05/13/18 Ezetimibe [Zetia] 10 mg PO DAILY #30 tab 05/13/18 Allergies Allergy/AdvReac Type Severity Reaction Status Date / Time Iodinated Contrast Media Allergy Anaphylaxis Verified 01/07/21 19:11 [Iodinated Contrast Media - IV Dye] Penicillins Allergy Unknown Verified 01/07/21 19:11 Childhood hydrocodone bitartrate AdvReac dizzyness, Verified 01/07/21 19:11 [From Vicodin] flushed metformin AdvReac Nausea & Verified 01/07/21 19:11 Vomiting & Diarrhea Review of Systems ROS Statement: Those systems with pertinent positive or pertinent negative responses have been documented in the HPI. ROS Other: All systems not noted in ROS Statement are negative. Past Medical History Past Medical History: Atrial Fibrillation, COPD, Diabetes Mellitus, Hyperlipid emia, Hypertension, Thyroid Disorder Additional Past Medical History / Comment(s): BACK AND KNEE PAIN, new onset atrial fib, brain tumor History of Any Multi-Drug Resistant Organisms: None Reported Past Surgical History: Breast Surgery, Hysterectomy, Orthopedic Surgery, Tonsillectomy Additional Past Surgical History / Comment(s): RT KNEE ARTHROSCOPY, BREAST BIOPSYx2, PARTIAL THYROIDECTOMY, stent and coil of brain aneurysm Additional Past Anesthesia/Blood Transfusion Reaction / Comment(s): "GET'S REALLY DIZZY" HAD TO STAY LONGER IN POST OP Past Psychological History: No Psychological Hx Reported Smoking Status: Never smoker Past Alcohol Use History: Rare Past Drug Use History: None Reported - Past Family History Mother Family Medical History: Hypertension Additional Family Medical History / Comment(s): mitral valve repairs General Exam - General Exam Comments Initial Comments: GENERAL: Patient is well-developed and well-nourished. Patient is nontoxic and well- hydrated and is in mild distress. ENT: Neck is soft and supple. No significant lymphadenopathy is noted. Oropharynx is clear. Moist mucous membranes. Neck has full range of motion without eliciting any pain. EYES: The sclera were anicteric and conjunctiva were pink and moist. Extraocular movements were intact and pupils were equal round and reactive to light. Eyelids were unremarkable. PULMONARY: Unlabored respirations. Good breath sounds bilaterally. No audible rales rhonchi or wheezing was noted. CARDIOVASCULAR: There is a regular rate and rhythm without any murmurs gallops or rubs. ABDOMEN: Soft and nontender with normal bowel sounds. SKIN: Skin is clear with no lesions or rashes and otherwise unremarkable. NEUROLOGIC: Patient is alert and oriented x3. Cranial nerves II through XII are grossly intact. Motor and sensory are also intact. Normal speech, volume and content. Symmetrical smile. MUSCULOSKELETAL: Normal extremities with adequate strength and full range of motion. LYMPHATICS: No significant lymphadenopathy is noted PSYCHIATRIC: Normal psychiatric evaluation. Course Vital Signs 01/07/21 01/07/21 01/07/21 17:27 18:10 19:00 Temperature 97.4 F L Pulse Rate 62 55 L 51 L Respiratory 20 16 16 Rate Blood Pressure 127/81 123/86 123/86 O2 Sat by Pulse 97 98 96 Oximetry Medical Decision Making - Medical Decision Making EKG shows sinus bradycardia 55 bpm SD interval 242 QRS is 86 QT interval 442 QTC is 442. Patient's EKG shows no ST segment elevation or depression. Chest x-ray shows no acute abnormality. Patient is been chest pain-free throughout her ED course. I spoke with [facility] agreed to admit the patient and the patient wrote admitting orders I consult cardiology. I. Repeated troponins overnight. - Lab Data Result diagrams: 01/07/21 18:03 01/07/21 18:03 Lab Results 01/07/21 01/07/21 01/07/21 Range/Units 18:03 18:03 18:03 WBC 7.8 (3.8-10.6) k/uL RBC 5.29 (3.80-5.40) m/uL Hgb 15.1 (11.4-16.0) gm/dL Hct 45.8 (34.0-46.0) % MCV 86.6 (80.0-100.0) fL MCH 28.6 (25.0-35.0) pg MCHC 33.0 (31.0-37.0) g/dL RDW 14.1 (11.5-15.5) % Plt Count 272 (150-450) k/uL MPV 7.6 Neutrophils % 56 % Lymphocytes % 32 % Monocytes % 6 % Eosinophils % 2 % Basophils % 1 % Neutrophils # 4.4 (1.3-7.7) k/uL Lymphocytes # 2.5 (1.0-4.8) k/uL Monocytes # 0.5 (0-1.0) k/uL Eosinophils # 0.1 (0-0.7) k/uL Basophils # 0.1 (0-0.2) k/uL PT 9.8 (9.0-12.0) sec INR 0.9 (<1.2) APTT 24.5 (22.0-30.0) sec Sodium 139 (137-145) mmol/L Potassium 4.1 (3.5-5.1) mmol/L Chloride 103 (98-107) mmol/L Carbon Dioxide 25 (22-30) mmol/L Anion Gap 11 mmol/L BUN 30 H (7-17) mg/dL Creatinine 0.68 (0.52-1.04) mg/dL Est GFR (CKD-EPI)AfAm >90 (>60 ml/min/1.73 sqM) Est GFR (CKD-EPI)NonAf >90 (>60 ml/min/1.73 sqM) Glucose 100 H (74-99) mg/dL Calcium 10.4 H (8.4-10.2) mg/dL Magnesium 2.4 H (1.6-2.3) mg/dL Total Bilirubin 0.4 (0.2-1.3) mg/dL AST 42 H (14-36) U/L ALT 40 H (4-34) U/L Alkaline Phosphatase 77 (38-126) U/L Troponin I (0.000-0.034) ng/mL Total Protein 7.4 (6.3-8.2) g/dL Albumin 4.8 (3.5-5.0) g/dL 01/07/21 Range/Units 18:03 WBC (3.8-10.6) k/uL RBC (3.80-5.40) m/uL Hgb (11.4-16.0) gm/dL Hct (34.0-46.0) % MCV (80.0-100.0) fL MCH (25.0-35.0) pg MCHC (31.0-37.0) g/dL RDW (11.5-15.5) % Plt Count (150-450) k/uL MPV Neutrophils % % Lymphocytes % % Monocytes % % Eosinophils % % Basophils % % Neutrophils # (1.3-7.7) k/uL Lymphocytes # (1.0-4.8) k/uL Monocytes # (0-1.0) k/uL Eosinophils # (0-0.7) k/uL Basophils # (0-0.2) k/uL PT (9.0-12.0) sec INR (<1.2) APTT (22.0-30.0) sec Sodium (137-145) mmol/L Potassium (3.5-5.1) mmol/L Chloride (98-107) mmol/L Carbon Dioxide (22-30) mmol/L Anion Gap mmol/L BUN (7-17) mg/dL Creatinine (0.52-1.04) mg/dL Est GFR (CKD-EPI)AfAm (>60 ml/min/1.73 sqM) Est GFR (CKD-EPI)NonAf (>60 ml/min/1.73 sqM) Glucose (74-99) mg/dL Calcium (8.4-10.2) mg/dL Magnesium (1.6-2.3) mg/dL Total Bilirubin (0.2-1.3) mg/dL AST (14-36) U/L ALT (4-34) U/L Alkaline Phosphatase (38-126) U/L Troponin I <0.012 (0.000-0.034) ng/mL Total Protein (6.3-8.2) g/dL Albumin (3.5-5.0) g/dL Disposition Clinical Impression: Chest pain Disposition: ADMITTED IP TO THIS [facility] Referrals: Saloni Juárez MD [Primary Care Provider] - 1-2 days Time of Disposition: 19:52
[2021-01-07 18:18] LABS: Basophils # (A) 0.1 k/uL (0-0.2); Basophils % (A) 1 %; Eosinophils # (A) 0.1 k/uL (0-0.7); Eosinophils % (A) 2 %; HCT 45.8 % (34.0-46.0); HGB 15.1 gm/dL (11.4-16.0); Lymphocytes # (A) 2.5 k/uL (1.0-4.8); Lymphocytes % (A) 32 %; MCH 28.6 pg (25.0-35.0); MCV 86.6 fL (80.0-100.0); Mean Platelet Volume 7.6; Monocytes # (A) 0.5 k/uL (0-1.0); Monocytes % (A) 6 %; Neutrophils # (A) 4.4 k/uL (1.3-7.7); Neutrophils % (A) 56 %; Platelet Count 272 k/uL (150-450); RBC 5.29 m/uL (3.80-5.40); RDW 14.1 % (11.5-15.5); WBC 7.8 k/uL (3.8-10.6)
[2021-01-07 18:31] LABS: ALT 40 U/L (4-34); AST 42 U/L (14-36); African American GFR (CKD) >90 (>60 ml/min/1.73 sqM); Albumin 4.8 g/dL (3.5-5.0); Alkaline Phosphatase 77 U/L (38-126); Anion Gap 11 mmol/L; Blood Urea Nitrogen 30 mg/dL (7-17); Calcium 10.4 mg/dL (8.4-10.2); Carbon Dioxide 25 mmol/L (22-30); Chloride 103 mmol/L (98-107); Glucose 100 mg/dL (74-99); Magnesium 2.4 mg/dL (1.6-2.3); Non-African American GFR(CKD) >90 (>60 ml/min/1.73 sqM); Potassium 4.1 mmol/L (3.5-5.1); Sodium 139 mmol/L (137-145); Total Bilirubin 0.4 mg/dL (0.2-1.3); Total Protein 7.4 g/dL (6.3-8.2)
--- NOTE | 2021-01-07 18:38 | XR ---
EXAMINATION TYPE: XR chest 2V DATE OF EXAM: 01/07/2021 COMPARISON: 09/22/2019 HISTORY: Chest pain TECHNIQUE: FINDINGS: Heart and mediastinum are normal. Lungs are clear. Diaphragm is normal. There are chest paulette ds. Bony thorax is intact. IMPRESSION: Normal chest. No change.
[2021-01-07 18:53] LABS: INR 0.9 (<1.2); Partial Thromboplastin Time 24.5 sec (22.0-30.0); Prothrombin Time 9.8 sec (9.0-12.0)
[2021-01-07] MEDS ORDERED: SODIUM CHLORIDE 0.9% 500 ML 500 ML IV ONE (19:47)
[2021-01-07] MEDS ORDERED: NITROGLYCERIN SL TABS 0.4 MG TAB SUBLINGUAL PRN (19:52)
[2021-01-07] MEDS ORDERED: ACETAMINOPHEN TAB 500 MG TAB PO PRN (22:42)
[2021-01-07] MEDS ORDERED: ONDANSETRON 4 MG/2 ML VIAL IVP PRN (22:44)
[2021-01-07] MEDS: APIXABAN 5 MG TAB PO SCH (23:17)
[2021-01-08] MEDS: NITROGLYCERIN OINT 1 INCH/GM PACKET TOPICAL SCH ×2 (00:57→05:23)
[2021-01-08] MEDS: ACETAMINOPHEN TAB 325 MG TAB PO PRN ×2 (02:35→08:52)
[2021-01-08] MEDS ORDERED: LEVOTHYROXINE 50 MCG TAB PO SCH (06:30)
[2021-01-08 07:40] LABS: Glucose,Whole Blood 99 mg/dL (75-99)
[2021-01-08 08:32] VITALS: BP 119/68; PULSE 48; RESP 17; TEMP 98
[2021-01-08] MEDS: APIXABAN 5 MG TAB PO SCH (08:50)
[2021-01-08] MEDS ORDERED: METOPROLOL SUCCINATE (ER) 25 MG TAB.ER.24H PO SCH (09:00)
[2021-01-08] MEDS ORDERED: FENOFIBRATE 160 MG TAB PO SCH (09:00)
[2021-01-08] MEDS ORDERED: MULTIVITAMINS, THERA 1 EACH TAB PO SCH (09:00)
[2021-01-08] MEDS ORDERED: EZETIMIBE 10 MG TAB PO SCH (09:00)
[2021-01-08] MEDS ORDERED: APIXABAN 5 MG TAB PO SCH (09:00)
[2021-01-08] MEDS ORDERED: NON FORMULARY DRUG (Dapagliflozin Propanediol [Farxiga] 5 MG Tablet) PO SCH (09:00)
[2021-01-08] MEDS ORDERED: NON FORMULARY DRUG (Glucosam/Chon-Msm1/C/Mang/Bosw [Glucosamine-Chondroitin Tablet] 1 EACH PO SCH (09:00)
[2021-01-08] MEDS ORDERED: LISINOPRIL-HCTZ 20-12.5 MG 1 EACH TAB PO SCH (09:00)
[2021-01-08] MEDS ORDERED: ASPIRIN 325 MG TAB PO SCH (09:00)
--- NOTE | 2021-01-08 10:18 | P.CRDCN ---
History of Present Illness History of present illness: HISTORY OF PRESENTING ILLNESS This is a pleasant 65-year-old female past medical history significant for paroxysmal atrial fibrillation on Eliquis, dyslipidemia, hypertension, hypo thyroidism and history of brain aneurysm status post coil and stent placement. She follows in the office with Dr. Solorzano. We have been asked to see in consultation for chest pain. She states yesterday morning she was making breakfast and she had a sensation of tightness around the base of her right rib. The episode was very brief and felt almost musculoskeletal. As her day went on she had no further symptoms of discomfort. She was sitting at the computer later in the afternoon when she had an acute onset of sharp pain in the mid- sternal region that radiated up to her neck and felt like someone was squeezing her throat. She stood up and felt light headed. She sat back down, no syncope or LOC. The episode lasted about 1-2 minutes and subsided on its own. She has had no further symptoms since arriving at the hospital. She underwent cardiac catheterization in 2012 revealing minimal nonobstructive coronary artery disease. DIAGNOSTICS EKG reveals sinus bradycardia heart rate of 55% acute ST or T wave abnormalities noted. Telemetry tracings indicate sinus mechanism with sinus bradycardia. Chest xray negative for an acute cardiopulmonary process. Laboratory reviewed, CBC unremarkable, sodium 139, potassium 4.1, creatinine 0.68, cardiac enzymes negative 3, magnesium 2.4. Current cardiac medications include lisinopril/hctz 20/12.5 mg daily, Eliquis 5 mg twice a day, Zetia 10 mg daily and Toprol 25 mg daily. REVIEW OF SYSTEMS At the time of my exam: CONSTITUTIONAL: Denies fever or chills. CARDIOVASCULAR: Denies chest pain, shortness of breath, orthopnea, PND or palpitations. RESPIRATORY: Denies cough. GASTROINTESTINAL: Denies abdominal pain, diarrhea, constipation, nausea or vomiting. MUSCULOSKELETAL: Denies myalgias. NEUROLOGIC: Denies numbness, tingling, headacbe or weakness. ENDOCRINE: Denies fatigue, weight change, polydipsia or polyurina. GENITOURINARY: Denies burning, hematuria or urgency with micturation. HEMATOLOGIC: Denies history of anemia or bleeding. PHYSICAL EXAMINATION Blood pressure 119/68 heart rate 48 afebrile and maintaining oxygen saturation o n room air. CONSTITUTIONAL: No apparent distress. HEENT: Head is normocephalic. Pupils are equal, round. Sclerae anicteric. Mucous membranes of the mouth are moist. No JVD. No carotid bruit. CHEST EXAMINATION: Lungs are clear to auscultation. No chest wall tenderness is noted on palpation or with deep breathing. HEART EXAMINATION: Regular rate and rhythm. S1, S2 heard. No murmurs, gallops or rub. ABDOMEN: Soft, nontender. Positive bowel sounds. EXTREMITIES: 2+ peripheral pulses, no lower extremity edema and no calf tenderness. NEUROLOGIC EXAMINATION: Patient is awake, alert and oriented x3. ASSESSMENT Chest pain, atypical Paroxysmal atrial fibrillation on eliquis, currently maintaining SR Hypertension Dyslipidemia PLAN An acute coronary event has been ruled out. Obtain 2-D echocardiogram and Doppler study to assess cardiac structure and function. No further cardiac workup at this time. Follow-up in the office with Dr. Solorzano upon discharge. Thank you kindly for this consultation. Nurse Practitioner note has been reviewed, I agree with a documented findings and plan of care. Patient was seen and examined. Past Medical History Past Medical History: Atrial Fibrillation, COPD, Diabetes Mellitus, Hyperlipidemia, Hypertension, Thyroid Disorder Additional Past Medical History / Comment(s): BACK AND KNEE PAIN, new onset atrial fib, brain tumor History of Any Multi-Drug Resistant Organisms: None Reported Past Surgical History: Breast Surgery, Hysterectomy, Orthopedic Surgery, Tonsillectomy Additional Past Surgical History / Comment(s): RT KNEE ARTHROSCOPY, BREAST BIOPSYx2, PARTIAL THYROIDECTOMY, stent and coil of brain aneurysm Additional Past Anesthesia/Blood Transfusion Reaction / Comment(s): "GET'S AIDEN LLY DIZZY" HAD TO STAY LONGER IN POST OP Past Psychological History: No Psychological Hx Reported Smoking Status: Never smoker Past Alcohol Use History: Rare Additional Past Alcohol Use History / Comment(s): STARTED SMOKING AT AGE 16, ON AND OFF, 1PPD Past Drug Use History: None Reported - Past Family History Mother Family Medical History: Hypertension Additional Family Medical History / Comment(s): mitral valve repairs Medications and Allergies Home Medications Medication Instructions Recorded Confirmed Type Glucosam/Jadiel-Msm1/C/Keith/Bosw 1 tab PO BID 05/11/18 01/07/21 History [Glucosamine-Chondroitin Tablet] Multivitamin,Therapeutic [Thera] 1 tab PO BID 05/11/18 01/07/21 History Apixaban [Eliquis] 5 mg PO BID #30 tab 05/13/18 01/07/21 Rx Ezetimibe [Zetia] 10 mg PO DAILY #30 tab 05/13/18 01/07/21 Rx Lisinopril-Hctz 20-12.5 mg 1 tab PO DAILY 08/27/19 01/07/21 History [Zestoretic 20-12.5] Levothyroxine Sodium [Synthroid] 50 mcg PO DAILY 09/23/19 01/07/21 History Acetaminophen [Tylenol Extra 1,000 mg PO HS PRN 01/07/21 01/07/21 History Strength] Dapagliflozin Propanediol [Farxiga] 5 mg PO DAILY 01/07/21 01/07/21 History Ergocalciferol (Vitamin D2) 1,250 mcg PO TU 01/07/21 01/07/21 History [Drisdol (50,000 Iu)] Fenofibrate Nanocrystallized 145 mg PO DAILY 01/07/21 01/07/21 History [Fenofibrate] Metoprolol Succinate [Toprol XL] 25 mg PO DAILY 01/07/21 01/07/21 History Allergies Allergy/AdvReac Type Severity Reaction Status Date / Time Iodinated Contrast Media Allergy Anaphylaxis Verified 01/07/21 20:03 [Iodinated Contrast Media - IV Dye] Penicillins Allergy Unknown Verified 01/07/21 20:03 Childhood hydrocodone bitartrate AdvReac dizzyness, Verified 01/07/21 20:03 [From Vicodin] flushed metformin AdvReac Nausea & Verified 01/07/21 20:03 Vomiting & Diarrhea Physical Exam Vitals: Vital Signs Temp Pulse Pulse Resp BP BP Pulse Ox 01/08/21 07:00 98.0 F 48 L 17 119/68 97 01/08/21 02:17 97.5 F L 46 L 16 94/52 96 01/07/21 22:31 97.8 F 53 L 18 144/93 95 01/07/21 21:41 73 16 116/75 96 01/07/21 20:30 52 L 16 124/72 95 01/07/21 19:00 51 L 16 123/86 96 01/07/21 18:10 55 L 16 123/86 98 01/07/21 17:27 97.4 F L 62 20 127/81 97 Intake and Output 01/07/21 01/08/21 01/08/21 22:59 06:59 14:59 Intake Total 0 Balance 0 Intake: Oral 0 Other: Voiding Method Toilet # Voids 1 2 Weight 92.986 kg Results 01/07/21 18:03 01/07/21 18:03 Cardiac Enzymes 01/07/21 01/07/21 01/07/21 Range/Units 18:03 18:03 21:26 AST 42 H (14-36) U/L Troponin I <0.012 <0.012 (0.000-0.034) ng/mL 01/07/21 Range/Units 23:42 AST (14-36) U/L Troponin I <0.012 (0.000-0.034) ng/mL Coagulation 01/07/21 Range/Units 18:03 PT 9.8 (9.0-12.0) sec APTT 24.5 (22.0-30.0) sec CBC 01/07/21 Range/Units 18:03 WBC 7.8 (3.8-10.6) k/uL RBC 5.29 (3.80-5.40) m/uL Hgb 15.1 (11.4-16.0) gm/dL Hct 45.8 (34.0-46.0) % Plt Count 272 (150-450) k/uL Comprehensive Metabolic Panel 01/07/21 Range/Units 18:03 Sodium 139 (137-145) mmol/L Potassium 4.1 (3.5-5.1) mmol/L Chloride 103 (98-107) mmol/L Carbon Dioxide 25 (22-30) mmol/L BUN 30 H (7-17) mg/dL Creatinine 0.68 (0.52-1.04) mg/dL Glucose 100 H (74-99) mg/dL Calcium 10.4 H (8.4-10.2) mg/dL AST 42 H (14-36) U/L ALT 40 H (4-34) U/L Alkaline Phosphatase 77 (38-126) U/L Total Protein 7.4 (6.3-8.2) g/dL Albumin 4.8 (3.5-5.0) g/dL Current Medications Generic Name Dose Route Start Last Admin Trade Name Freq PRN Reason Stop Dose Admin Acetaminophen 1,000 mg 01/07/21 22:42 01/07/21 23:05 Acetaminophen Tab 500 Mg Tab PO 1,000 mg HS PRN Administration Pain Acetaminophen 650 mg 01/07/21 22:45 01/08/21 08:52 Acetaminophen Tab 325 Mg Tab PO 650 mg Q6HR PRN Administration Fever and/ or Pain Apixaban 5 mg 01/07/21 23:15 01/08/21 08:50 Apixaban 5 Mg Tab PO 5 mg BID [facility] Administration Protocol Ezetimibe 10 mg 01/08/21 09:00 01/08/21 08:49 Ezetimibe 10 Mg Tab PO 10 mg DAILY JAYDA Administration Ergocalciferol 1,250 mcg 01/13/21 09:00 Ergocalciferol 1,250 Mcg (50,000 Iu) Capsule PO TU [facility] Fenofibrate 160 mg 01/08/21 09:00 01/08/21 08:50 Fenofibrate 160 Mg Tab PO 160 mg DAILY [facility] Administration Levothyroxine Sodium 50 mcg 01/08/21 06:30 01/08/21 05:42 Levothyroxine 50 Mcg Tab PO 50 mcg DAILY@0630 [facility] Administration Multivitamins 1 each 01/08/21 09:00 01/08/21 08:50 Multivitamins, Thera 1 Each Tab PO 1 each BID [facility] Administration Nitroglycerin 0.4 mg 01/07/21 19:52 Nitroglycerin Sl Tabs 0.4 Mg Tab SUBLINGUAL Q5M PRN Chest Pain Non-Formulary Medication 5 mg 01/08/21 09:00 01/08/21 08:55 Dapagliflozin Propanediol [Farxiga] PO Not Given DAILY [facility] Ondansetron HCl 4 mg 01/07/21 22:44 Ondansetron 4 Mg/2 Ml Vial IVP Q6HR PRN Nausea And Vomiting Intake and Output 01/07/21 01/08/21 01/08/21 22:59 06:59 14:59 Intake Total 0 Balance 0 Intake: Oral 0 Other: Voiding Method Toilet # Voids 1 2 Weight 92.986 kg 01/07/21 18:03 01/07/21 18:03
[2021-01-08 11:27] LABS: Chol/HDL Ratio 3.42
[2021-01-08 11:52] LABS: Glucose,Whole Blood 125 mg/dL (75-99)
--- NOTE | 2021-01-08 12:17 | ECHOF ---
Referral Reason:cp MEASUREMENTS -------- HEIGHT: 162.6 cm WEIGHT: 93.0 kg BP: RVIDd: 2.4 cm (< 3.3) IVSd: 0.9 cm (0.6 - 1.1) LVIDd: 5.7 cm (3.9 - 5.3) LVPWd: 0.9 cm (0.6 - 1.1) IVSs: 1.3 cm LVIDs: 3.9 cm LVPWs: 1.3 cm LA Diam: 3.5 cm (2.7 - 3.8) LAESV Index (A-L): 23.11 ml/m Ao Diam: 2.6 cm (2.0 - 3.7) AV Cusp: 1.5 cm (1.5 - 2.6) LA Diam: 3.6 cm (2.7 - 3.8) MV EXCURSION: 22.213 mm (> 18.000) MV EF SLOPE: 127 mm/s (70 - 150) EPSS: 0.4 cm MV E Des: 0.64 m/s MV DecT: 185 ms MV A Des: 0.57 m/s MV E/A Ratio: 1.12 RAP: 5.00 mmHg RVSP: 22.27 mmHg FINDINGS -------- Sinus rhythm. This was a technically good study. LV size, wall thickness and systolic function are normal, with an EF greater than 55%. The left aldo tricular size is normal. The right ventricle is normal in size. Normal LA size by volume 22+/-6 ml/m2. The right atrial size is normal. The aortic valve is trileaflet, and appears structurally normal. No aortic stenosis or regurgitation. Mild mitral regurgitation is present. Mild tricuspid regurgitation present. Right ventricular systolic pressure is normal at < 35 mmHg. There is no pulmonic regurgitation present. The aortic root size is normal. There is no pericardial effusion. CONCLUSIONS -------- 1. LV size, wall thickness and systolic function are normal, with an EF greater than 55%. 2. The left ventricular size is normal. 3. The right ventricle is normal in size. 4. Normal LA size by volume 22+/-6 ml/m2. 5. The right atrial size is normal. 6. The aortic valve is trileaflet, and appears structurally normal. No aortic stenosis or regurgitati on. 7. Mild mitral regurgitation is present. 8. Mild tricuspid regurgitation present. 9. The aortic root size is normal. 10. There is no pericardial effusion. [employer] CHARGER OPERATOR: Ruth Robert RDCS
--- NOTE | 2021-01-08 12:39 | P.HPIM ---
History of Present Illness Patient is a 65-year-old female with known history of proximal A. fib on Eliquis and a low-dose metoprolol came in with complaints of chest pain. He to be musculoskeletal in this happened after moving stuff in her garage. Her pain resolved patient had a sharp pain midsternal radiating to the neck. Patient's troponins were negative no acute ST-T wave changes in the EKG patient was a valid by cardiology rule out acute coronary syndromes. Patient blood pressure was a as low as in 90 systolic believed to be secondary to Nitropaste. Even without Nitropaste patient blood pressure remains on the lower side and low 100s. Patient is on lisinopril/hydrochlorothiazide and metoprolol. Patient is bit bradycardic patient did complain of occasional lightheadedness which I believe is mostly from low blood pressure at than bradycardia. Patient is on very low-dose of metoprolol which will be continued patient is also on Eliquis. Counseled her at length about monitoring blood pressure at home and taking it to PCPs office her cardiology's office. Because of her low blood pressure I'm discontinuing her hydrochlorothiazide patient was given a prescription for low- dose of lisinopril that is 10 mg and patient will check her blood pressure 2-3 times a day for about a week and document the readings and will take it to primary care physician and cardiology to titrate her medications. REVIEW OF SYSTEMS: CONSTITUTIONAL: No fever, no malaise, no fatigue. HEENT: No recent visual problems or hearing problems. Denied any sore throat. CARDIOVASCULAR: No orthopnea, PND, no palpitations, no syncope. PULMONARY: No shortness of breath, no cough, no hemoptysis. GASTROINTESTINAL: No diarrhea, no nausea, no vomiting, no abdominal pain. NEUROLOGICAL: No headaches, no weakness, no numbness. HEMATOLOGICAL: Denies any bleeding or petechiae. GENITOURINARY: Denies any burning micturition, frequency, or urgency. MUSCULOSKELETAL/RHEUMATOLOGICAL: Denies any joint pain, swelling, or any muscle pain. ENDOCRINE: Denies any polyuria or polydipsia. The rest of the 14-point review of systems is negative. PHYSICAL EXAMINATION: GENERAL: The patient is alert and oriented x3, not in any acute distress. Well developed, well nourished. HEENT: Pupils are round and equally reacting to light. EOMI. No scleral icterus. No conjunctival pallor. Normocephalic, atraumatic. No pharyngeal erythema. No thyromegaly. CARDIOVASCULAR: S1 and S2 present. No murmurs, rubs, or gallops. PULMONARY: Chest is clear to auscultation, no wheezing or crackles. ABDOMEN: Soft, nontender, nondistended, normoactive bowel sounds. No palpable or ganomegaly. MUSCULOSKELETAL: No joint swelling or deformity. EXTREMITIES: No cyanosis, clubbing, or pedal edema. NEUROLOGICAL: Gross neurological examination did not reveal any focal deficits. SKIN: No rashes. Assessment and plan -Chest pain or musculoskeletal ruled out the acute coronary syndromes cleared by cardiology will be discharged today -Proximal A. fib presently sinus rhythm continue with the 25 mg of metoprolol and Eliquis -Hyperlipidemia patient is presently not on any statin patient is on enough fiber rate and Zetia which she'll continue further management as an outpatient -Type 2 diabetes mellitus continue her home regimen -Hypertension patient has episodes of hypotension because of which I made above- mentioned changes with the above-mentioned instructions patient will follow up with PCP and cardiology closely as an outpatient Patient will be discharged today after echocardiogram. Past Medical History Past Medical History: Atrial Fibrillation, COPD, Diabetes Mellitus, Hyperlipidemia, Hypertension, Thyroid Disorder Additional Past Medical History / Comment(s): BACK AND KNEE PAIN, new onset atrial fib, brain tumor History of Any Multi-Drug Resistant Organisms: None Reported Past Surgical History: Breast Surgery, Hysterectomy, Orthopedic Surgery, Tonsillectomy Additional Past Surgical History / Comment(s): RT KNEE ARTHROSCOPY, BREAST BIOPSYx2, PARTIAL THYROIDECTOMY, stent and coil of brain aneurysm Additional Past Anesthesia/Blood Transfusion Reaction / Comment(s): "GET'S REALLY DIZZY" HAD TO STAY LONGER IN POST OP Past Psychological History: No Psychological Hx Reported Smoking Status: Never smoker Past Alcohol Use History: Rare Additional Past Alcohol Use History / Comment(s): STARTED SMOKING AT AGE 16, ON AND OFF, 1PPD Past Drug Use History: None Reported - Past Family History Mother Family Medical History: Hypertension Additional Family Medical History / Comment(s): mitral valve repairs Medications and Allergies Home Medications Medication Instructions Recorded Confirmed Type Glucosam/Jadiel-Msm1/C/Keith/Bosw 1 tab PO BID 05/11/18 01/07/21 History [Glucosamine-Chondroitin Tablet] Multivitamin,Therapeutic [Thera] 1 tab PO BID 05/11/18 01/07/21 History Apixaban [Eliquis] 5 mg PO BID #30 tab 05/13/18 01/07/21 Rx Ezetimibe [Zetia] 10 mg PO DAILY #30 tab 05/13/18 01/07/21 Rx Levothyroxine Sodium [Synthroid] 50 mcg PO DAILY 09/23/19 01/07/21 History Acetaminophen [Tylenol Extra 1,000 mg PO HS PRN 01/07/21 01/07/21 History Strength] Dapagliflozin Propanediol [Farxiga] 5 mg PO DAILY 01/07/21 01/07/21 History Ergocalciferol (Vitamin D2) 1,250 mcg PO TU 01/07/21 01/07/21 History [Drisdol (50,000 Iu)] Fenofibrate Nanocrystallized 145 mg PO DAILY 01/07/21 01/07/21 History [Fenofibrate] Lisinopril [Zestril] 10 mg PO DAILY #30 tab 01/08/21 Rx Allergies Allergy/AdvReac Type Severity Reaction Status Date / Time Iodinated Contrast Media Allergy Anaphylaxis Verified 01/07/21 20:03 [Iodinated Contrast Media - IV Dye] Penicillins Allergy Unknown Verified 01/07/21 20:03 Childhood hydrocodone bitartrate AdvReac dizzyness, Verified 01/07/21 20:03 [From Vicodin] flushed metformin AdvReac Nausea & Verified 01/07/21 20:03 Vomiting & Diarrhea Physical Exam Vitals: Vital Signs Temp Pulse Pulse Resp BP BP Pulse Ox 01/08/21 07:00 98.0 F 48 L 17 119/68 97 01/08/21 02:17 97.5 F L 46 L 16 94/52 96 01/07/21 22:31 97.8 F 53 L 18 144/93 95 01/07/21 21:41 73 16 116/75 96 01/07/21 20:30 52 L 16 124/72 95 01/07/21 19:00 51 L 16 123/86 96 01/07/21 18:10 55 L 16 123/86 98 01/07/21 17:27 97.4 F L 62 20 127/81 97 Intake and Output 01/07/21 01/08/21 01/08/21 22:59 06:59 14:59 Intake Total 0 Balance 0 Intake: Oral 0 Other: Voiding Method Toilet # Voids 1 2 Weight 92.986 kg Results CBC & Chem 7: 01/07/21 18:03 01/07/21 18:03 Labs: Abnormal Lab Results - Last 24 Hours (Table) 01/07/21 01/07/21 01/08/21 Range/Units 18:03 18:03 11:50 BUN 30 H (7-17) mg/dL Glucose 100 H (74-99) mg/dL POC Glucose (mg/dL) 125 H (75-99) mg/dL Calcium 10.4 H (8.4-10.2) mg/dL Magnesium 2.4 H (1.6-2.3) mg/dL AST 42 H (14-36) U/L ALT 40 H (4-34) U/L Triglycerides 435.0 H (0.0-149.0) mg/dL Cholesterol 260 H (0-200) mg/dL HDL Cholesterol 76.0 H (40.0-60.0) mg/dL Thrombosis Risk Factor Assmnt - Choose All That Apply Each Factor Represents 1 point: Abnormal pulmonary function (COPD), Obesity (BMI >25) Each Risk Factor Represents 2 Points: Age 61-74 years Thrombosis Risk Factor Assessment Total Risk Factor Score: 4 Thrombosis Risk Factor Assessment Level: Moderate Risk
--- NOTE | 2021-01-08 12:39 | P.DS ---
Providers Date of admission: 01/07/21 19:52 Attending physician: Randee Antonio Consults: 01/07/21 19:52 Consult Physician Urgent Consulting Provider: [facility] Consult Reason/Comments: Chest pain Do you want consulting provider notified?: Yes Primary care physician: Saloni Juárez [facility] Course: Refer to my history of present illness for further details Plan - Discharge Summary Discharge Rx Participant: No New Discharge Prescriptions: New Lisinopril [Zestril] 10 mg PO DAILY #30 tab Metoprolol Succinate [Toprol XL] 25 mg PO DAILY #10 tab Continue Multivitamin,Therapeutic [Thera] 1 tab PO BID Glucosam/Jadiel-Msm1/C/Keith/Bosw [Glucosamine-Chondroitin Tablet] 1 tab PO BID Apixaban [Eliquis] 5 mg PO BID #30 tab Ezetimibe [Zetia] 10 mg PO DAILY #30 tab Levothyroxine Sodium [Synthroid] 50 mcg PO DAILY Ergocalciferol (Vitamin D2) [Drisdol (50,000 Iu)] 1,250 mcg PO TU Fenofibrate Nanocrystallized [Fenofibrate] 145 mg PO DAILY Dapagliflozin Propanediol [Farxiga] 5 mg PO DAILY Acetaminophen [Tylenol Extra Strength] 1,000 mg PO HS PRN PRN Reason: Pain Discontinued Lisinopril-Hctz 20-12.5 mg [Zestoretic 20-12.5] 1 tab PO DAILY Metoprolol Succinate [Toprol XL] 25 mg PO DAILY Discharge Medication List Glucosam/Jadiel-Msm1/C/Keith/Bosw [Glucosamine-Chondroitin Tablet] 1 tab PO BID 05/11/18 [History] Multivitamin,Therapeutic [Thera] 1 tab PO BID 05/11/18 [History] Apixaban [Eliquis] 5 mg PO BID #30 tab 05/13/18 [Rx] Ezetimibe [Zetia] 10 mg PO DAILY #30 tab 05/13/18 [Rx] Levothyroxine Sodium [Synthroid] 50 mcg PO DAILY 09/23/19 [History] Acetaminophen [Tylenol Extra Strength] 1,000 mg PO HS PRN 01/07/21 [History] Dapagliflozin Propanediol [Farxiga] 5 mg PO DAILY 01/07/21 [History] Ergocalciferol (Vitamin D2) [Drisdol (50,000 Iu)] 1,250 mcg PO TU 01/07/21 [History] Fenofibrate Nanocrystallized [Fenofibrate] 145 mg PO DAILY 01/07/21 [History] Lisinopril [Zestril] 10 mg PO DAILY #30 tab 01/08/21 [Rx] Metoprolol Succinate [Toprol XL] 25 mg PO DAILY #10 tab 01/08/21 [Rx] Follow up Appointment(s)/Referral(s): Saloni Juárez MD [Primary Care Provider] - 3 Days Jr Solorzano MD [STAFF PHYSICIAN] - 2 Weeks Patient Instructions/Handouts: Chest Pain (GEN) Discharge Disposition: HOME SELF-CARE
[2021-01-13] MEDS ORDERED: ERGOCALCIFEROL 1,250 MCG (50,000 IU) CAPSULE PO SCH (09:00)
== END 2021-01-08 13:17 | disposition home or self-care (01) ==
LOC: EC 17:26 → 6NMEDSUR 19:52
PROVIDERS: ADMIT Hospitalist; ATTEND Hospitalist
DX: R07.2 Precordial pain (principal); I48.0 Paroxysmal atrial fibrillation; I10 Essential (primary) hypertension; E78.5 Hyperlipidemia, unspecified; Z20.822 Contact with and (suspected) exposure to COVID-19; E11.9 Type 2 diabetes mellitus without complications; J44.9 Chronic obstructive pulmonary disease, unspecified; E03.9 Hypothyroidism, unspecified; E78.00 Pure hypercholesterolemia, unspecified; R00.1 Bradycardia, unspecified; I95.9 Hypotension, unspecified; M25.569 Pain in unspecified knee; E66.9 Obesity, unspecified; Z68.25 Body mass index [BMI] 25.0-25.9, adult; M54.9 Dorsalgia, unspecified; Z79.82 Long term (current) use of aspirin; Z79.84 Long term (current) use of oral hypoglycemic drugs; Z79.01 Long term (current) use of anticoagulants; Z79.890 Hormone replacement therapy; Z79.899 Other long term (current) drug therapy; Z91.041 Radiographic dye allergy status; Z88.0 Allergy status to penicillin; Z88.5 Allergy status to narcotic agent; Z88.2 Allergy status to sulfonamides; I67.1 Cerebral aneurysm, nonruptured; Z87.891 Personal history of nicotine dependence; Z90.710 Acquired absence of both cervix and uterus; Z82.49 Family history of ischemic heart disease and other diseases of the circulatory system
CPT/HCPCS: 93005 ×2; 99285; 36415; 93306; 80061; 80053; 83735; 84484; 85025; 85610; 85730; 83721; 87635; 71046; G0378 ×2

== ENCOUNTER → 2021-07-23 | Outpatient (CLI) | payer BC ==
[2021-07-23 15:58] LABS: Basophils # (A) 0.08 X 10*3/uL (0.00-0.10); Basophils % (A) 1.3 %; Eosinophils # (A) 0.13 X 10*3/uL (0.04-0.35); Eosinophils % (A) 2.1 %; HCT 44.2 % (37.2-46.3); HGB 14.3 g/dL (12.0-15.0); Lymphocytes # (A) 1.95 X 10*3/uL (0.90-5.00); Lymphocytes % (A) 31.3 %; MCH 28.3 pg (27.0-32.0); MCHC 32.4 g/dL (32.0-37.0); MCV 87.5 fL (80.0-97.0); Monocytes # (A) 0.57 X 10*3/uL (0.20-1.00); Monocytes % (A) 9.1 %; Neutrophils # (A) 3.49 X 10*3/uL (1.80-7.70); Neutrophils % (A) 55.9 %; Platelet Count 261 X 10*3/uL (140-440); RBC 5.05 X 10*6/uL (4.10-5.20); RDW 13.6 % (11.5-14.5); WBC 6.24 X 10*3/uL (4.50-10.00)
[2021-07-23 21:06] LABS: ALT 30 U/L (8-44); AST 20 U/L (13-35); African American GFR (CKD) 103.9 (60.0-200.0); Albumin 4.8 g/dL (3.8-4.9); Albumin/Globulin Ratio 2.53 (1.60-3.17); Alkaline Phosphatase 70 U/L (41-126); Blood Urea Nitrogen 19.6 mg/dL (9.0-27.0); Calcium 9.8 mg/dL (8.7-10.3); Carbon Dioxide 23.1 mmol/L (20.0-27.5); Chloride 104 mmol/L (96-109); Chol/HDL Ratio 2.76 Ratio; Globulin 1.9 g/dL (1.6-3.3); Glucose 85 mg/dL (70-110); LDL Cholesterol,Calculated 111.7 mg/dL (0.0-131.0); Non-African American GFR(CKD) 89.7 (60.0-200.0); Potassium 4.7 mmol/L (3.5-5.5); Sodium 140 mmol/L (135-145); Total Protein 6.7 g/dL (6.2-8.2)
== END | disposition home or self-care (01) ==
LOC: LABWHC1 10:12
PROVIDERS: ATTEND Internal Medicine
DX: I10 Essential (primary) hypertension (principal); E78.5 Hyperlipidemia, unspecified
CPT/HCPCS: 36415; 80053; 80061; 83036; 84439; 84443; 85025

== ENCOUNTER 2021-08-05 20:26 | Emergency (ER) | payer BC ==
[2021-08-05] MEDS ORDERED: ASPIRIN 81 MG PO STA (21:25)
[2021-08-05] MEDS ORDERED: SODIUM CHLORIDE 0.9% 1,000 ML IV STA (21:25)
--- NOTE | 2021-08-05 21:27 | ED ---
General Adult HPI - General Chief complaint: Chest Pain Stated complaint: Chest Pain, High Blood Pressure, Covid+ Time Seen by Provider: 08/05/21 20:55 Source: patient Mode of arrival: ambulatory Limitations: no limitations - History of Present Illness Initial comments: 65-year-old female with a past medical history of atrial fibrillation, COPD, diabetes mellitus, hyperlipidemia, hypertension presents to the emergency room for chest pain. Patient states she was diagnosed with COVID-19 today and had antibody infusion. Patient states her symptoms started about 3 days ago. Patient states yesterday she started to have some left-sided chest pain that wrapped around to her back. Patient states it worsened today. Patient states it hurts with certain movements as well as taking a deep breath.patient took 2 extra strength Tylenol about 3-1/2 hours ago. Patient has no other complaints at this time including shortness of breath, abdominal pain, nausea or vomiting, headache, or visual changes. - Related Data Home Medications Medication Instructions Recorded Confirmed Glucosam/Jadiel-Msm1/C/Keith/Bosw 1 tab PO BID 05/11/18 01/07/21 [Glucosamine-Chondroitin Tablet] Multivitamin,Therapeutic [Thera] 1 tab PO BID 05/11/18 01/07/21 Levothyroxine Sodium [Synthroid] 50 mcg PO DAILY 09/23/19 01/07/21 Acetaminophen [Tylenol Extra 1,000 mg PO HS PRN 01/07/21 01/07/21 Strength] Dapagliflozin Propanediol [Farxiga] 5 mg PO DAILY 01/07/21 01/07/21 Ergocalciferol (Vitamin D2) 1,250 mcg PO TU 01/07/21 01/07/21 [Drisdol (50,000 Iu)] Fenofibrate Nanocrystallized 145 mg PO DAILY 01/07/21 01/07/21 [Fenofibrate] Previous Rx's Medication Instructions Recorded Apixaban [Eliquis] 5 mg PO BID #30 tab 05/13/18 Ezetimibe [Zetia] 10 mg PO DAILY #30 tab 05/13/18 Lisinopril [Zestril] 10 mg PO DAILY #30 tab 01/08/21 Metoprolol Succinate [Toprol XL] 25 mg PO DAILY #10 tab 01/08/21 guaiFENesin [Mucinex] 600 mg PO Q12HR PRN #20 tab 08/05/21 Allergies Allergy/AdvReac Type Severity Reaction Status Date / Time Iodinated Contrast Media Allergy Anaphylaxis Verified 01/07/21 20:03 [Iodinated Contrast Media - IV Dye] Penicillins Allergy Unknown Verified 01/07/21 20:03 Childhood hydrocodone bitartrate AdvReac dizzyness, Verified 01/07/21 20:03 [From Vicodin] flushed metformin AdvReac Nausea & Verified 01/07/21 20:03 Vomiting & Diarrhea Review of Systems ROS Statement: Those systems with pertinent positive or pertinent negative responses have been documented in the HPI. ROS Other: All systems not noted in ROS Statement are negative. Past Medical History Past Medical History: Atrial Fibrillation, COPD, Diabetes Mellitus, Hyperlipidemia, Hypertension, Thyroid Disorder Additional Past Medical History / Comment(s): BACK AND KNEE PAIN, new onset atrial fib, brain tumor History of Any Multi-Drug Resistant Organisms: None Reported Past Surgical History: Breast Surgery, Hysterectomy, Orthopedic Surgery, Tonsillectomy Additional Past Surgical History / Comment(s): RT KNEE ARTHROSCOPY, BREAST BIOPSYx2, PARTIAL THYROIDECTOMY, stent and coil of brain aneurysm Additional Past Anesthesia/Blood Transfusion Reaction / Comment(s): "GET'S REALLY DIZZY" HAD TO STAY LONGER IN POST OP Past Psychological History: No Psychological Hx Reported Smoking Status: Never smoker Past Alcohol Use History: Rare Past Drug Use History: None Reported - Past Family History Mother Family Medical History: Hypertension Additional Family Medical History / Comment(s): mitral valve repairs General Exam Limitations: no limitations General appearance: alert, in no apparent distress Head exam: Present: atraumatic Eye exam: Present: normal appearance, PERRL, EOMI. Absent: scleral icterus, conjunctival injection ENT exam: Present: normal exam, mucous membranes moist Neck exam: Present: normal inspection, full ROM. Absent: tenderness Respiratory exam: Present: normal lung sounds bilaterally. Absent: respiratory distress, wheezes Cardiovascular Exam: Present: regular rate, normal rhythm, normal heart sounds GI/Abdominal exam: Present: soft, normal bowel sounds. Absent: distended, tenderness Neurological exam: Present: alert Course Vital Signs 08/05/21 08/05/21 08/05/21 20:34 21:00 22:29 Temperature 100.6 F H 99.1 F Pulse Rate 76 64 Respiratory 18 14 Rate Blood Pressure 156/97 146/80 O2 Sat by Pulse 97 93 L Oximetry EKG Findings - EKG Comments: EKG Findings:: Normal sinus rhythm, ventricular rate 71, VT interval 158, QTC 439 Medical Decision Making - Medical Decision Making Vitals are stable. Patient is well-appearing. EKG is nonischemic. CBC CMP unremarkable. Troponin is negative. D-dimer is 0.19. Chest x-ray shows no acute process. Patient's pain is atypical in nature. It is pleuritic and worse ns with movement. It is reproducible to palpation. At this time patient is stable for outpatient follow-up. She will return here for any worsening symptoms.I discussed this case with attending Dr. Pena who agrees with this assessment and treatment plan. - Lab Data Result diagrams: 08/05/21 21:38 08/05/21 21:38 Lab Results 08/05/21 08/05/21 08/05/21 Range/Units 21:38 21:38 21:38 WBC 6.0 (3.8-10.6) k/uL RBC 4.63 (3.80-5.40) m/uL Hgb 13.4 (11.4-16.0) gm/dL Hct 40.6 (34.0-46.0) % MCV 87.6 (80.0-100.0) fL MCH 29.0 (25.0-35.0) pg MCHC 33.1 (31.0-37.0) g/dL RDW 13.5 (11.5-15.5) % Plt Count 213 (150-450) k/uL MPV 8.3 Neutrophils % 70 % Lymphocytes % 19 % Monocytes % 8 % Eosinophils % 1 % Basophils % 1 % Neutrophils # 4.1 (1.3-7.7) k/uL Lymphocytes # 1.2 (1.0-4.8) k/uL Monocytes # 0.5 (0-1.0) k/uL Eosinophils # 0.0 (0-0.7) k/uL Basophils # 0.1 (0-0.2) k/uL PT 10.0 (9.0-12.0) sec INR 0.9 (<1.2) APTT 26.4 (22.0-30.0) sec D-Dimer 0.19 (<0.60) mg/L FEU Sodium (137-145) mmol/L Potassium (3.5-5.1) mmol/L Chloride (98-107) mmol/L Carbon Dioxide (22-30) mmol/L Anion Gap mmol/L BUN (7-17) mg/dL Creatinine (0.52-1.04) mg/dL Est GFR (CKD-EPI)AfAm (>60 ml/min/1.73 sqM) Est GFR (CKD-EPI)NonAf (>60 ml/min/1.73 sqM) Glucose (74-99) mg/dL Calcium (8.4-10.2) mg/dL Magnesium (1.6-2.3) mg/dL Total Bilirubin (0.2-1.3) mg/dL AST (14-36) U/L ALT (4-34) U/L Alkaline Phosphatase (38-126) U/L Troponin I (0.000-0.034) ng/mL Total Protein (6.3-8.2) g/dL Albumin (3.5-5.0) g/dL Lipase (23-300) U/L Urine Color Yellow Urine Appearance Clear (Clear) Urine pH 6.0 (5.0-8.0) Ur Specific Crescent 1.012 (1.001-1.035) Urine Protein Negative (Negative) Urine Glucose (UA) Negative (Negative) Urine Ketones Negative (Negative) Urine Blood Negative (Negative) Urine Nitrite Negative (Negative) Urine Bilirubin Negative (Negative) Urine Urobilinogen <2.0 (<2.0) mg/dL Ur Leukocyte Esterase Negative (Negative) 08/05/21 08/05/21 Range/Units 21:38 21:38 WBC (3.8-10.6) k/uL RBC (3.80-5.40) m/uL Hgb (11.4-16.0) gm/dL Hct (34.0-46.0) % MCV (80.0-100.0) fL MCH (25.0-35.0) pg MCHC (31.0-37.0) g/dL RDW (11.5-15.5) % Plt Count (150-450) k/uL MPV Neutrophils % % Lymphocytes % % Monocytes % % Eosinophils % % Basophils % % Neutrophils # (1.3-7.7) k/uL Lymphocytes # (1.0-4.8) k/uL Monocytes # (0-1.0) k/uL Eosinophils # (0-0.7) k/uL Basophils # (0-0.2) k/uL PT (9.0-12.0) sec INR (<1.2) APTT (22.0-30.0) sec D-Dimer (<0.60) mg/L FEU Sodium 137 (137-145) mmol/L Potassium 3.7 (3.5-5.1) mmol/L Chloride 107 (98-107) mmol/L Carbon Dioxide 24 (22-30) mmol/L Anion Gap 6 mmol/L BUN 17 (7-17) mg/dL Creatinine 0.73 (0.52-1.04) mg/dL Est GFR (CKD-EPI)AfAm >90 (>60 ml/min/1.73 sqM) Est GFR (CKD-EPI)NonAf 86 (>60 ml/min/1.73 sqM) Glucose 105 H (74-99) mg/dL Calcium 9.1 (8.4-10.2) mg/dL Magnesium 1.9 (1.6-2.3) mg/dL Total Bilirubin 0.4 (0.2-1.3) mg/dL AST 34 (14-36) U/L ALT 36 H (4-34) U/L Alkaline Phosphatase 60 (38-126) U/L Troponin I <0.012 (0.000-0.034) ng/mL Total Protein 6.1 L (6.3-8.2) g/dL Albumin 3.8 (3.5-5.0) g/dL Lipase 192 (23-300) U/L Urine Color Urine Appearance (Clear) Urine pH (5.0-8.0) Ur Specific Crescent (1.001-1.035) Urine Protein (Negative) Urine Glucose (UA) (Negative) Urine Ketones (Negative) Urine Blood (Negative) Urine Nitrite (Negative) Urine Bilirubin (Negative) Urine Urobilinogen (<2.0) mg/dL Ur Leukocyte Esterase (Negative) Disposition Clinical Impression: COVID-19, Atypical chest pain Disposition: HOME SELF-CARE Condition: Good Instructions (If sedation given, give patient instructions): Chest Pain (ED) Additional Instructions: Use your Flonase at home. Take Mucinex as directed. Continue to take vitamin C and D. Take 220 mg of zinc per day. Return to the emergency room for any worsening symptoms such as worsening chest pain or shortness of breath/oxygen below 90. Prescriptions: guaiFENesin [Mucinex] 600 mg PO Q12HR PRN #20 tab PRN Reason: Congestion Is patient prescribed a controlled substance at d/c from ED?: No Referrals: Saloni Juárez MD [Primary Care Provider] - 1-2 days Time of Disposition: 22:56
--- NOTE | 2021-08-05 21:53 | XR ---
EXAMINATION TYPE: XR chest 2V DATE OF EXAM: 08/05/2021 COMPARISON: 01/07/2021 HISTORY: Chest pain TECHNIQUE: 2 views FINDINGS: Heart and mediastinum are normal. Lungs are clear. Diaphragm is normal. Bony thorax is inta ct. IMPRESSION: Normal chest. No change
[2021-08-05 21:57] LABS: Basophils # (A) 0.1 k/uL (0-0.2); Basophils % (A) 1 %; Eosinophils % (A) 1 %; HCT 40.6 % (34.0-46.0); HGB 13.4 gm/dL (11.4-16.0); Lymphocytes # (A) 1.2 k/uL (1.0-4.8); Lymphocytes % (A) 19 %; MCHC 33.1 g/dL (31.0-37.0); MCV 87.6 fL (80.0-100.0); Mean Platelet Volume 8.3; Monocytes # (A) 0.5 k/uL (0-1.0); Monocytes % (A) 8 %; Neutrophils # (A) 4.1 k/uL (1.3-7.7); Neutrophils % (A) 70 %; Platelet Count 213 k/uL (150-450); RBC 4.63 m/uL (3.80-5.40); RDW 13.5 % (11.5-15.5)
[2021-08-05 21:59] LABS: Appearance,Urine Clear (Clear); Bilirubin,Urine Negative (Negative); Blood,Urine Negative (Negative); Color,Urine Yellow; Glucose,Urine (UA) Negative (Negative); Ketones,Urine Negative (Negative); Leukocyte Esterase,Urine Negative (Negative); Nitrite,Urine Negative (Negative); Protein,Urine Negative (Negative); Specific Gravity,Urine 1.012 (1.001-1.035); Urobilinogen,Urine <2.0 mg/dL (<2.0)
[2021-08-05 22:10] LABS: INR 0.9 (<1.2); Partial Thromboplastin Time 26.4 sec (22.0-30.0)
[2021-08-05 22:13] LABS: ALT 36 U/L (4-34); AST 34 U/L (14-36); African American GFR (CKD) >90 (>60 ml/min/1.73 sqM); Albumin 3.8 g/dL (3.5-5.0); Alkaline Phosphatase 60 U/L (38-126); Anion Gap 6 mmol/L; Blood Urea Nitrogen 17 mg/dL (7-17); Calcium 9.1 mg/dL (8.4-10.2); Carbon Dioxide 24 mmol/L (22-30); Chloride 107 mmol/L (98-107); Glucose 105 mg/dL (74-99); Lipase 192 U/L (23-300); Magnesium 1.9 mg/dL (1.6-2.3); Non-African American GFR(CKD) 86 (>60 ml/min/1.73 sqM); Potassium 3.7 mmol/L (3.5-5.1); Sodium 137 mmol/L (137-145); Total Bilirubin 0.4 mg/dL (0.2-1.3); Total Protein 6.1 g/dL (6.3-8.2)
[2021-08-05 22:30] VITALS: TEMP 99.1
[2021-08-05 23:20] VITALS: BP 149/79; PULSE 63; RESP 18
== END 2021-08-05 23:04 | disposition home or self-care (01) ==
LOC: EC 20:26
DX: U07.1 COVID-19 (principal); I10 Essential (primary) hypertension; J44.9 Chronic obstructive pulmonary disease, unspecified; E11.9 Type 2 diabetes mellitus without complications; E07.9 Disorder of thyroid, unspecified; I48.91 Unspecified atrial fibrillation; E78.5 Hyperlipidemia, unspecified; Z91.041 Radiographic dye allergy status; Z88.0 Allergy status to penicillin; Z88.5 Allergy status to narcotic agent; Z88.8 Allergy status to other drugs, medicaments and biological substances; Z79.899 Other long term (current) drug therapy; Z79.890 Hormone replacement therapy
CPT/HCPCS: 36415; 71046; 80053; 81003; 83690; 83735; 84484; 85025; 85379; 85610; 85730; 93005; 99285

== ENCOUNTER → 2021-08-05 | Outpatient (CLI) | payer BC ==
[~2021-08-05] MED LIST: SODIUM CHLORIDE 0.9% 50 ML IVPB ONE; SODIUM CHLORIDE 0.9% 500 ML 500 ML in EMPTY BAG 1 BAG IV PRN; SOTROVIMAB (EUA) 500 MG in SODIUM CHLORIDE 0.9% 100 ML IVPB ONE
[2021-08-05 14:53] VITALS: BP 131/86; PULSE 58; RESP 16
== END ==
LOC: PROCWHC3 12:59
PROVIDERS: ATTEND Internal Medicine
DX: U07.1 COVID-19 (principal); E11.9 Type 2 diabetes mellitus without complications; Z87.891 Personal history of nicotine dependence; Z91.041 Radiographic dye allergy status; Z88.8 Allergy status to other drugs, medicaments and biological substances; Z88.5 Allergy status to narcotic agent

== ENCOUNTER → 2022-01-13 | Outpatient (CLI) | payer BC ==
--- NOTE | 2022-01-17 22:07 | MM ---
Reason for Exam: Screening (asymptomatic). Last screening mammogram was performed 12 month(s) ago. Patient History: Menarche at age 13. Patient has no children. Left ovary removed at age 48. Right ovary removed at age 48. Hysterectomy at age 48. Postmenopausal. Patient used Estrogen for 2 years. 07/2016, Benign Stereotactic Core Biopsy on the left side. Paternal grandmother had breast cancer, age 80. Risk Values: Jes 5 year model risk: 2.0%. NCI Lifetime model risk: 6.6%. Prior Study Comparison: 02/14/2019 Right Diagnostic Mammogram, [facility]. 06/19/2019 Bilateral Screening Mammogram, [facility]. 12/25/2020 Bilateral Screening Mammogram, [facility]. Tissue Density: There are scattered fibroglandular densities. Findings: Analyzed By CAD. Microclip posterior left breast from prior biopsy. No significant change from prior exams. Overall Assessment: Benign, BI-RAD 2 Management: Screening Mammogram of both breasts in 1 year. 1. The patient to continue monthly breast exams. 2. A clinical breast exam by your physician is recommended on an annual basis. 3. This exam should not preclude additional follow-up of suspicious palpable abnormalities. Electronically signed and approved by: Janusz Porter M.D. Radiologist
== END | disposition home or self-care (01) ==
LOC: RADMAMWWP 17:02
PROVIDERS: ATTEND Internal Medicine
DX: Z12.31 Encounter for screening mammogram for malignant neoplasm of breast (principal); Z80.3 Family history of malignant neoplasm of breast; Z78.0 Asymptomatic menopausal state
CPT/HCPCS: 77063; 77067

== ENCOUNTER → 2022-04-07 | Outpatient (CLI) | payer BC ==
[2022-04-07 15:22] LABS: ALT 34 U/L (8-44); AST 27 U/L (13-35); Albumin 4.5 g/dL (3.8-4.9); Albumin/Globulin Ratio 1.94 (1.60-3.17); Alkaline Phosphatase 62 U/L (41-126); BUN/Creat Ratio 28.22 Ratio (12.00-20.00); Blood Urea Nitrogen 18.2 mg/dL (9.0-27.0); Calcium 9.4 mg/dL (8.7-10.3); Carbon Dioxide 25.1 mmol/L (20.0-27.5); Chloride 104 mmol/L (96-109); Chol/HDL Ratio 2.96 Ratio; Globulin 2.3 g/dL (1.6-3.3); Glucose 119 mg/dL (70-110); LDL Cholesterol,Calculated 118.9 mg/dL (0.0-131.0); Non-African American GFR(CKD) 91.5 (60.0-200.0); Potassium 4.1 mmol/L (3.5-5.5); Sodium 140 mmol/L (135-145); Total Protein 6.8 g/dL (6.2-8.2)
[2022-04-07 19:59] LABS: Microalbumin Creatinine Ratio <30 mg/g Creat (0-30); Urine Creatinine 66.6 mg/dL (28.0-217.0)
== END | disposition home or self-care (01) ==
LOC: LABWHC1 07:51
PROVIDERS: ATTEND Internal Medicine Endocrinology, Diabetes & Metabolism
DX: E11.65 Type 2 diabetes mellitus with hyperglycemia (principal)
CPT/HCPCS: 36415; 80053; 80061; 82043; 82570; 83036; 84443

== ENCOUNTER 2022-07-30 08:21 | Day surgery (SDC) | payer BC ==
[2022-07-27 12:00] VITALS: BMI 28.7
[~2022-07-30 08:21] MED LIST changes: +LACTATED RINGERS 1,000 ML IV SCH; -SODIUM CHLORIDE 0.9% 50 ML IVPB ONE; -SODIUM CHLORIDE 0.9% 500 ML 500 ML in EMPTY BAG 1 BAG IV PRN; -SOTROVIMAB (EUA) 500 MG in SODIUM CHLORIDE 0.9% 100 ML IVPB ONE
[2022-07-30 09:32] LABS: Glucose,Whole Blood 120 mg/dL (70-110)
[2022-07-30 09:33] VITALS: RESP 14; TEMP 97
[2022-07-30] MEDS ORDERED: PROPOFOL 10 MG/ML 20 ML VIAL IV ONE (09:43)
--- NOTE | 2022-07-30 09:59 | P.PCN ---
Date of Procedure: 07/30/22 Procedure(s) Performed: BRIEF HISTORY: Patient is a 66-year-old pleasant 8 female scheduled for an elective colonoscopy as a part of screening for colon cancer and strong family history of colon cancer. Her brother was diagnosed with colon cancer at age 50 maternal grandmother in her 60s. Maternal uncle a 60 and maternal cousin in the 50s. PROCEDURE PERFORMED: Colonoscopy with snare polypectomy. PREOPERATIVE DIAGNOSIS: Screening for colon cancer and strong family history of colon cancer. IV sedation per Anesthesia. PROCEDURE: After informed consent was obtained, the patient, was brought into the endoscopy unit. IV sedation was administered by Anesthesia under continuous monitoring. Digital rectal examination was normal. Initially the Olympus CF-160 flexible video colonoscope was then inserted in the rectum, gradually advanced into the cecum without any difficulty. Careful examination was performed as the scope was gradually being withdrawn. Ileocecal valve and the appendiceal orifice were visualized and appeared normal. Prep was excellent. Mucosa of the cecum, ascending colon, transverse colon, descending colon, sigmoid colon, and rectum appeared normal. The proximal rectum there was a 7-8 mm polyp removed by snare polypectomy. Retroflexion was performed in the rectum and no lesions were seen. The patient tolerated the procedure well. IMPRESSION: 7-8 mm proximal rectal polyp status post polypectomy Rest of the colon appeared normal RECOMMENDATIONS: Findings of this examination were discussed with the patient as well as a family. She was advised to follow with the biopsy results and have a repeat colonoscopy in 3 years. Because of strong family history of colon cancer
[2022-07-30 10:09] VITALS: BP 97/57; PULSE 64
== END 2022-07-30 10:50 | disposition home or self-care (01) ==
LOC: ORWHC2ENDO 08:21
PROVIDERS: ATTEND Internal Medicine Gastroenterology
DX: Z12.11 Encounter for screening for malignant neoplasm of colon (principal); D12.8 Benign neoplasm of rectum; I48.91 Unspecified atrial fibrillation; I25.10 Atherosclerotic heart disease of native coronary artery without angina pectoris; E78.5 Hyperlipidemia, unspecified; Z79.899 Other long term (current) drug therapy; Z90.89 Acquired absence of other organs; Z98.82 Breast implant status; Z98.890 Other specified postprocedural states; Z79.01 Long term (current) use of anticoagulants; Z88.8 Allergy status to other drugs, medicaments and biological substances; Z80.0 Family history of malignant neoplasm of digestive organs; Z91.041 Radiographic dye allergy status
CPT/HCPCS: 45385; J2704; 88305

== ENCOUNTER → 2022-11-15 | Outpatient (CLI) | payer BC ==
[2022-11-15 23:02] LABS: ALT 46 U/L (8-44); AST 29 U/L (13-35); African American GFR (CKD) 103.2 (60.0-200.0); Albumin 4.6 g/dL (3.8-4.9); Albumin/Globulin Ratio 1.92 (1.60-3.17); Alkaline Phosphatase 62 U/L (41-126); BUN/Creat Ratio 27.71 Ratio (12.00-20.00); Blood Urea Nitrogen 19.4 mg/dL (9.0-27.0); Calcium 10.1 mg/dL (8.7-10.3); Carbon Dioxide 26.5 mmol/L (20.0-27.5); Chloride 102 mmol/L (96-109); Chol/HDL Ratio 3.99 Ratio; Globulin 2.4 g/dL (1.6-3.3); Glucose 108 mg/dL (70-110); LDL Cholesterol,Calculated 164.7 mg/dL (0.0-131.0); Potassium 4.3 mmol/L (3.5-5.5); Sodium 138 mmol/L (135-145)
== END | disposition home or self-care (01) ==
LOC: LABWHC1 14:15
PROVIDERS: ATTEND Internal Medicine Endocrinology, Diabetes & Metabolism
DX: E11.65 Type 2 diabetes mellitus with hyperglycemia (principal)
CPT/HCPCS: 36415; 80053; 80061; 82043; 82570; 83036; 84443

== ENCOUNTER → 2023-02-28 | Outpatient (CLI) | payer BC ==
[2023-02-28 20:02] LABS: ALT 33 U/L (8-44); AST 26 U/L (13-35); Albumin 4.6 d/dL (3.8-4.9); Albumin/Globulin Ratio 2.09 Ratio (1.60-3.17); Alkaline Phosphatase 57 U/L (41-126); BUN/Creat Ratio 34.43 Ratio (12.00-20.00); Blood Urea Nitrogen 24.1 mg/dL (9.0-27.0); Calcium 9.6 mg/dL (8.7-10.3); Carbon Dioxide 24.8 mmol/L (21.6-31.8); Chloride 106 mmol/L (96-109); Globulin 2.2 d/dL (1.6-3.3); Glucose 121 mg/dL (70-110); Potassium 4.3 mmol/L (3.5-5.5); Sodium 141 mmol/L (135-145); Total Bilirubin 0.5 mg/dL (0.3-1.2); Total Protein 6.8 d/dL (6.2-8.2)
[2023-02-28 22:54] LABS: Microalbumin Creatinine Ratio <14 mg/g Cr (0-30); Urine Creatinine 85.9 mg/dL (28.0-217.0)
== END | disposition home or self-care (01) ==
LOC: LABWHC1 09:56
PROVIDERS: ATTEND Internal Medicine Endocrinology, Diabetes & Metabolism
DX: E11.65 Type 2 diabetes mellitus with hyperglycemia (principal)
CPT/HCPCS: 36415; 80053; 80061; 82043; 82570; 83036; 84443

== ENCOUNTER → 2023-04-28 | Outpatient (CLI) | payer BC ==
--- NOTE | 2023-04-28 11:07 | CTL ---
Addendum: Recommendation: [id number] findings. Recommend 12 month annual screening.
== END | disposition home or self-care (01) ==
LOC: RADCTMAIN 10:08
PROVIDERS: ATTEND Family Medicine
DX: Z12.2 Encounter for screening for malignant neoplasm of respiratory organs (principal); I71.21 Aneurysm of the ascending aorta, without rupture; Z87.891 Personal history of nicotine dependence
CPT/HCPCS: 71271

== ENCOUNTER → 2023-06-30 | Outpatient (CLI) | payer BC ==
--- NOTE | 2023-06-30 13:18 | BD ---
EXAMINATION TYPE: Axial Bone Density DATE OF EXAM: 06/30/2023 CLINICAL HISTORY: 67 years old Female. ICD-10 CODE: M85.88 OTHER DISORDER OF BONE DENSITY Height: 68.8 Weight: 206 FRAX RISK QUESTIONS: Family History (Parent hip fracture): yes, sister History of Fracture in Adulthood: yes Current Tobacco Use: quit only 5 yrs ago RISK FACTORS HISTORY OF: hx of elbow fx at 63 yrs old hx of two fxs Family History of Osteoporosis: yes, sister, with femur fx Postmenopausal woman: 48 yrs Lost more than 2 inches in height since high school: yes Hyperparathyroidism: no Adrenal Insufficiency: no MEDICATIONS: Thyroid Medications: yes, 10 yrs, synthroid Additional Medications: blood thinners, bp meds, vit d, diabetic meds, multivitamin, rybulsus, choles terol meds, Additional History: hx of clots, hypertension, diabetic, EXAM MEASUREMENTS: Bone mineral densitometry was performed using the AddMyBest System. Bone mineral density as measured about the Lumbar spine is: ----- L1-L4(G/cm2): 1.016 T Score Values are as follows: ----- L1: -2.0 ----- L2: -2.1 ----- L3: -1.7 ----- L4: -0.2 ----- L1-L4: -1.4 Z Score Values are as follows: ----- L1: -1.3 ----- L2: -1.3 ----- L3: -1.0 ----- L4: 0.5 ----- L1-L4: -0.7 Bone mineral density has: Increased 1.3% since study of: 06.19.2019 Bone mineral density about the R hip (g/cm2): 0.983 Bone mineral density about the L hip (g/cm2): 0.989 T Score values are as follows: -----R Neck: 0.4 -----L Neck: -0.3 -----R Total: -0.2 -----L Total: -0.1 Z Score values are as follows: -----R Neck: 1.5 -----L Neck: 0.8 -----R Total: 0.6 -----L Total: 0.6 Bone mineral density has: Decreased -2.8% since study of: 06.19.2019 FRAX%s: The graph provided illustrates a 11.7% chance for a major osteoporotic fx and a 0.6% chance f or the hips probability for fx in 10 years time. IMPRESSION: Normal (Values between +1 and -1 indicate normal bone mass). Consider repeating this study in 5 year s or sooner if there is some new clinical indication. NOTE: T-SCORE=SD OF THE YOUNG ADULT MEAN.
== END | disposition home or self-care (01) ==
LOC: RADBDWWP 11:32
PROVIDERS: ATTEND Family Medicine
DX: M85.89 Other specified disorders of bone density and structure, multiple sites (principal); Z78.0 Asymptomatic menopausal state
CPT/HCPCS: 77080

== ENCOUNTER → 2023-08-06 | Outpatient (CLI) | payer BC ==
[2023-08-06 16:22] LABS: ALT 48 U/L (8-44); AST 32 U/L (13-35); Albumin 4.5 g/dL (3.8-4.9); Albumin/Globulin Ratio 1.96 Ratio (1.60-3.17); Alkaline Phosphatase 61 U/L (41-126); BUN/Creat Ratio 30.43 Ratio (12.00-20.00); Blood Urea Nitrogen 21.3 mg/dL (9.0-27.0); Calcium 10.2 mg/dL (8.7-10.3); Carbon Dioxide 24.6 mmol/L (21.6-31.8); Chloride 103 mmol/L (96-109); Chol/HDL Ratio 2.84 Ratio; Globulin 2.3 g/dL (1.6-3.3); Glucose 118 mg/dL (70-110); LDL Cholesterol,Calculated 120.9 mg/dL (0.0-131.0); Potassium 4.1 mmol/L (3.5-5.5); Sodium 140 mmol/L (135-145); Total Bilirubin 0.7 mg/dL (0.3-1.2); Total Protein 6.8 g/dL (6.2-8.2)
[2023-08-06 22:14] LABS: Microalbumin Creatinine Ratio <16 mg/g Cr (0-30); Urine Creatinine 74.9 mg/dL (28.0-217.0)
== END | disposition home or self-care (01) ==
LOC: LABWHC1 10:10
PROVIDERS: ATTEND Internal Medicine Endocrinology, Diabetes & Metabolism
DX: E11.65 Type 2 diabetes mellitus with hyperglycemia (principal)
CPT/HCPCS: 36415; 80053; 80061; 82043; 82570; 83036; 84443

== ENCOUNTER → 2024-01-16 | Outpatient (CLI) | payer BC ==
[2024-01-16 15:41] LABS: ALT 18 U/L (8-44); AST 22 U/L (13-35); Albumin 4.9 g/dL (3.8-4.9); Albumin/Globulin Ratio 1.69 Ratio (1.60-3.17); Alkaline Phosphatase 58 U/L (41-126); BUN/Creat Ratio 26.43 Ratio (12.00-20.00); Blood Urea Nitrogen 18.5 mg/dL (9.0-27.0); Calcium 9.8 mg/dL (8.7-10.3); Carbon Dioxide 25.7 mmol/L (21.6-31.8); Chloride 103 mmol/L (96-109); Chol/HDL Ratio 1.77 Ratio; Globulin 2.9 g/dL (1.6-3.3); Glucose 132 mg/dL (70-110); LDL Cholesterol,Calculated 38.1 mg/dL (0.0-131.0); Potassium 5.7 mmol/L (3.5-5.5); Sodium 141 mmol/L (135-145); Total Bilirubin 0.6 mg/dL (0.3-1.2); Total Protein 7.8 g/dL (6.2-8.2); VLDL Calculation 11.62 mg/dL (5.00-40.00)
[2024-01-16 22:49] LABS: Microalbumin Creatinine Ratio <16 mg/g Cr (0-30); Urine Creatinine 76.9 mg/dL (28.0-217.0)
== END | disposition home or self-care (01) ==
LOC: LABWHC1 10:32
PROVIDERS: ATTEND Internal Medicine Endocrinology, Diabetes & Metabolism
DX: E11.65 Type 2 diabetes mellitus with hyperglycemia (principal); E03.8 Other specified hypothyroidism
CPT/HCPCS: 36415; 80053; 80061; 82043; 82570; 83036; 84443

== ENCOUNTER → 2024-03-16 | Outpatient (CLI) | payer BC ==
[2024-03-16 15:38] LABS: ALT 19 U/L (8-44); AST 18 U/L (13-35); Chol/HDL Ratio 1.74 Ratio; LDL Cholesterol,Calculated 32.4 mg/dL (0.0-131.0); VLDL Calculation 7.88 mg/dL (5.00-40.00)
== END | disposition home or self-care (01) ==
LOC: LABWHC1 09:37
PROVIDERS: ATTEND Internal Medicine Interventional Cardiology
DX: E78.2 Mixed hyperlipidemia (principal)
CPT/HCPCS: 36415; 80061; 84450; 84460

== ENCOUNTER → 2024-04-20 | Outpatient (CLI) | payer BC ==
--- NOTE | 2024-04-23 14:41 | MM ---
Reason for Exam: Screening (asymptomatic). Last mammogram was performed 1 year(s) and 3 month(s) ago. Patient History: Menarche at age 13. Patient has no children. Left ovary removed at age 48. Right ovary removed at age 48. Hysterectomy at age 48. Postmenopausal. Patient used Estrogen for 2 years. 07/2016, Benign Stereotactic Core Biopsy on the left side. Paternal grandmother had breast cancer, age 80. Risk Values: Jes 5 year model risk: 2.1%. NCI Lifetime model risk: 6.0%. Prior Study Comparison: 12/25/2020 Bilateral Screening Mammogram, [facility]. 01/13/2022 Bilateral MG 3D screening mammo w/cad, [facility]. 02/03/2023 Bilateral MG 3D screening mammo w/cad, [facility]. Tissue Density: The breasts are heterogeneously dense, which may obscure small masses. Findings: Analyzed By CAD. There is no suspicious group of microcalcifications or new suspicious mass in either breast. Overall Assessment: Negative, BI-RAD 1 Management: Screening Mammogram of both breasts in 1 year. . Patient should continue monthly self-breast exams. A clinical breast exam by your physician is recommended on an annual basis. This exam should not preclude additional follow-up of suspicious palpable abnormalities. Note on Jes scores and lifetime risk: 1. A Jes score greater than 3% is considered moderate risk. If this is the case, consider specialist referral to assess eligibility for a risk reducing agent. 2. If overall lifetime risk for the development of breast cancer is 20% or higher, the patient may qualify for future screening with alternating mammogram and breast MRI. [facility], , 04/23/2024 2:38 PM. Electronically signed and approved by: Alejo Monsivais M.D. Radiologis
== END | disposition home or self-care (01) ==
LOC: RADMAMWWP 15:20
PROVIDERS: ATTEND Family Medicine
DX: Z12.31 Encounter for screening mammogram for malignant neoplasm of breast
CPT/HCPCS: 77063; 77067

== ENCOUNTER → 2024-04-30 | Outpatient (CLI) | payer BC ==
--- NOTE | 2024-04-30 12:03 | CTL ---
EXAMINATION TYPE: CT Low Dose Lung DATE OF EXAM ORDERED: 04/30/2024 HISTORY: Personal history of tobacco use, quit smoking 2018, no reported pack history. Lung cancer sc reening CT DLP: [address] CTDI: 2.56 mGy Automated exposure control for dose reduction was used. SCREENING VISIT: Second screening visit COMPARISON: CT Low Dose Lung 04/28/2023 TECHNIQUE: Low dose computed tomography scan was performed through the chest at 1 mm thick sections a nd reconstructed images in multiple planes at 1 mm and [address] DIAGNOSTIC QUALITY: Satisfactory FINDINGS: Nodules: Stable left lower lobe solid 3.3 mm pulmonary nodule (series 7, image 40). Stable right lower lobe 3 mm subpleural pulmonary nodule (series 10, image 164). No new or enlarging pulmonary nodules. LUNGS: COPD: Severity: Mild Fibrosis: Severity: None Lymph nodes: None Other findings: None RIGHT PLEURAL SPACE: Effusion: None Calcification: None Thickening: Mild Pneumothorax: None LEFT PLEURAL SPACE: Effusion: None Calcification: None Thickening: Mild Pneumothorax: None HEART: Heart Size: Normal Coronary Calcification: Small Pericardial Effusion: None OTHER FINDINGS: Upper abdomen: Liver is diffusely hypoattenuating. Cholelithiasis. Bony thorax: None Supraclavicular region: None Other: Stable aneurysmal dilatation of the ascending thoracic aorta measuring up to 4.2 cm. Aortic ro ot measures 3.5 cm and normal. Descending thoracic aorta is normal measuring 2.7 cm. IMPRESSION: 1. Stable pulmonary nodules measuring less than 4 mm. No new or enlarging pulmonary nodule. 2. Stable ascending thoracic aortic aneurysm measuring 4.2 cm. 3. Hepatic steatosis. 4. Cholelithiasis. CT LUNG RAD AND CT CHEST RECOMMENDATION: Lung-Rad 2 Benign Appearance or Behavior: Continue annual sc reening with LDCT in 12 months. S Modifier (other clinically significant findings): S [facility], , 04/30/2024 12:00 PM
== END ==
LOC: RADCTMAIN 10:53
PROVIDERS: ATTEND Internal Medicine
DX: Z12.2 Encounter for screening for malignant neoplasm of respiratory organs (principal); R91.8 Other nonspecific abnormal finding of lung field; K76.0 Fatty (change of) liver, not elsewhere classified; K80.20 Calculus of gallbladder without cholecystitis without obstruction; I71.21 Aneurysm of the ascending aorta, without rupture; Z87.891 Personal history of nicotine dependence
CPT/HCPCS: 71271

== ENCOUNTER 2024-06-05 23:07 | Inpatient (IN) | payer BC ==
[2024-06-05 23:44] LABS: Basophils # (A) 0.1 k/uL (0-0.2); Basophils % (A) 1 %; Eosinophils # (A) 0.2 k/uL (0-0.7); Eosinophils % (A) 3 %; HCT 42.2 % (34.0-46.0); Lymphocytes # (A) 2.5 k/uL (1.0-4.8); Lymphocytes % (A) 34 %; MCH 28.2 pg (25.0-35.0); MCHC 33.2 g/dL (31.0-37.0); MCV 85.1 fL (80.0-100.0); Monocytes # (A) 0.4 k/uL (0-1.0); Monocytes % (A) 5 %; Neutrophils % (A) 54 %; Platelet Count 239 k/uL (150-450); RBC 4.96 m/uL (3.80-5.40); WBC 7.4 k/uL (3.8-10.6)
--- NOTE | 2024-06-05 23:47 | ED ---
Arrhythmia/Palpitations HPI - General Chief Complaint: Arrhythmia/Palpitations Stated Complaint: Chest Pain Time Seen by Provider: 06/05/24 23:27 Source: patient, RN notes reviewed Mode of arrival: wheelchair Limitations: no limitations - History of Present Illness Initial Comments: 68-year-old female with history of atrial fibrillation presenting with palpitations x 1 hour. States she was on the couch watching TV when she started to feel her heart race and states she can feel the palpitations in her throat. Denies chest pain, shortness of breath, fever, chills. She is taking Eliquis twice daily and metoprolol 25 mg 1.5 tabs daily. States she has had 2 episodes of atrial fibrillation in the past. States she regularly sees Dr. Solorzano, recent cardiac catheterization was negative. - Related Data Home Medications Medication Instructions Recorded Confirmed Glucosam/Jadiel-Msm1/C/Keith/Bosw 1 tab PO BID 05/11/18 07/30/22 [Glucosamine-Chondroitin Tablet] Multivitamin,Therapeutic [Thera] 1 tab PO BID 05/11/18 07/30/22 Levothyroxine Sodium [Synthroid] 50 mcg PO QAM 09/23/19 07/30/22 Acetaminophen [Tylenol Extra 1,000 mg PO HS PRN 01/07/21 07/30/22 Strength] Ergocalciferol (Vitamin D2) 1,250 mcg PO TU 01/07/21 07/30/22 [Drisdol (50,000 Iu)] Fenofibrate Nanocrystallized 145 mg PO DAILY 01/07/21 07/30/22 [Fenofibrate] Biotin [Biotin Disolve] 5,000 mcg PO DAILY 07/27/22 07/30/22 Magnesium 400 mg PO DAILY 07/27/22 07/30/22 Metoprolol Succinate [Metoprolol 12.5 mg PO HS 07/27/22 07/30/22 Succinate ER] Metoprolol Succinate [Toprol XL] 25 mg PO QAM 07/27/22 07/30/22 hydroCHLOROthiazide 12.5 mg PO QAM 07/27/22 07/30/22 icosapent ethyL [Icosapent Ethyl] 2 gm PO BID-W/MEALS 07/27/22 07/30/22 lisinopriL [Prinivil] 5 mg PO HS 07/27/22 07/30/22 lisinopriL [Zestril] 10 mg PO QAM 07/27/22 07/30/22 Previous Rx's Medication Instructions Recorded Apixaban [Eliquis] 5 mg PO BID #30 tab 05/13/18 Ezetimibe [Zetia] 10 mg PO DAILY #30 tab 05/13/18 Allergies Allergy/AdvReac Type Severity Reaction Status Date / Time Iodinated Contrast Media Allergy Anaphylaxis Verified 06/05/24 23:08 [Iodinated Contrast Media - IV Dye] Penicillins Allergy Unknown Verified 06/05/24 23:08 Childhood dapagliflozin [From Farxiga] AdvReac Vaginal Verified 06/05/24 23:08 Infection hydrocodone bitartrate AdvReac dizzyness, Verified 06/05/24 23:08 [From Vicodin] flushed,unable to stand metformin AdvReac Nausea & Verified 06/05/24 23:08 Vomiting & Diarrhea Review of Systems ROS Statement: Those systems with pertinent positive or pertinent negative responses have been documented in the HPI. ROS Other: All systems not noted in ROS Statement are negative. Past Medical History Past Medical History: Atrial Fibrillation, COPD, Diabetes Mellitus, Hyp erlipidemia, Hypertension, Thyroid Disorder Additional Past Medical History / Comment(s): BACK AND KNEE PAIN. Hx benign brain tumor and cerebral aneurysm that was stented and coiled 12/04/2018. Bilateral varicose veins. History of Any Multi-Drug Resistant Organisms: None Reported Past Surgical History: Breast Surgery, Heart Catheterization, Hysterectomy, Orthopedic Surgery, Tonsillectomy Additional Past Surgical History / Comment(s): RIGHT KNEE ARTHROSCOPY, BREAST BIOPSY X2, PARTIAL THYROIDECTOMY, stent and coil of brain aneurysm, bilateral cataract surgery, colonoscopy/polypectomy. Past Anesthesia/Blood Transfusion Reactions: No Reported Reaction, Motion Sickness Additional Past Anesthesia/Blood Transfusion Reaction / Comment(s): "GOT REALLY DIZZY" HAD TO STAY LONGER IN POST OP- YRS AGO. Past Psychological History: No Psychological Hx Reported Smoking Status: Never smoker Past Alcohol Use History: Rare Past Drug Use History: None Reported - Past Family History Mother Family Medical History: Hypertension Additional Family Medical History / Comment(s): Mitral valve repairs, heart disease. Father Family Medical History: Cancer Additional Family Medical History / Comment(s): Brain cancer. Brother(s) Family Medical History: Cancer Additional Family Medical History / Comment(s): Colon cancer. General Exam Limitations: no limitations General appearance: alert, in no apparent distress Head exam: Present: atraumatic, normocephalic, normal inspection Eye exam: Present: normal appearance, PERRL, EOMI. Absent: scleral icterus, conjunctival injection, periorbital swelling ENT exam: Present: normal exam, mucous membranes moist Respiratory exam: Present: normal lung sounds bilaterally. Absent: respiratory distress, wheezes, rales, rhonchi, stridor Cardiovascular Exam: Present: tachycardia, irregular rhythm, normal heart sounds. Absent: systolic murmur, diastolic murmur, rubs, gallop, clicks GI/Abdominal exam: Present: soft, normal bowel sounds. Absent: distended, tenderness, guarding, rebound, rigid Neurological exam: Present: alert, oriented X3 Psychiatric exam: Present: normal affect, normal mood Skin exam: Present: warm, dry, intact, normal color. Absent: rash Course Vital Signs 06/05/24 06/06/24 06/06/24 23:08 00:07 00:30 Temperature 97.4 F L Pulse Rate 69 129 H 125 H Respiratory 20 20 17 Rate Blood Pressure 171/86 146/99 131/101 O2 Sat by Pulse 98 96 95 Oximetry 06/06/24 01:00 Temperature Pulse Rate 93 Respiratory 20 Rate Blood Pressure 122/97 O2 Sat by Pulse 95 Oximetry EKG Findings - EKG Results: EKG: interpreted by ERMD (EKG reveals atrial fibrillation with rapid ventricular rate. Ventricular rate 129 bpm, NC interval not calculated, QRS duration 89, QT/QTc 319/395) Medical Decision Making - Medical Decision Making Was pt. sent in by a medical professional or institution (, PA, STRAP MACHINE OPERATOR AUTOMATIC, urgent care, hospital, or long-term...) When possible be specific @ -No Did you speak to anyone other than the patient for history (EMS, parent, family, police, friend...)? What history was obtained from this source @ -No Did you review nursing and triage notes (agree or disagree)? Why? @ -I reviewed and agree with nursing and triage notes Were old charts reviewed (outside hosp., previous admission, EMS record, old EKG, old radiological studies, urgent care reports/EKG's, long-term records)? Report findings @ -No old charts were reviewed Differential Diagnosis (chest pain, altered mental status, abdominal pain women, abdominal pain men, vaginal bleeding, weakness, fever, dyspnea, syncope, headache, dizziness, GI bleed, back pain, seizure, CVA, palpatations, mental health, musculoskeletal)? @ -Differential Palpitations Ventricular arrhythmias, atrial arrhythmias, myocardial infarction, anemia, thyrotoxicosis, electrolyte imbalance, hypokalemia, pulmonary embolism, pulmonary disease, drugs, alcohol, anxiety, stress.... This is not meant to be an all-inclusive list. EKG interpreted by me (3pts min.). @ -As above X-rays interpreted by me (1pt min.). @ -Chest x-ray reveals no acute process CT interpreted by me (1pt min.). @ -None done U/S interpreted by me (1pt. min.). @ -None done What testing was considered but not performed or refused? (CT, X-rays, U/S, labs)? Why? @ -None What meds were considered but not given or refused? Why? @ -None Did you discuss the management of the patient with other professionals (professionals i.e. , PA, STRAP MACHINE OPERATOR AUTOMATIC, lab, RT, psych nurse, elementary school social worker, vp scientific affairs, teacher, chief technology officer, oil field caser)? Give summary @ -No Was smoking cessation discussed for >3mins.? @ -No Was critical care preformed (if so, how long)? @ -Yes, 45 minutes Were there social determinants of health that impacted care today? How? (Homelessness, low income, unemployed, alcoholism, drug addiction, transportation, low edu. Level, literacy, decrease access to med. care, [facility], rehab)? @ -No Was there de-escalation of care discussed even if they declined (Discuss DNR or withdrawal of care, Hospice)? DNR status @ -No What co-morbidities impacted this encounter? (DM, HTN, Smoking, COPD, CAD, Cancer, CVA, ARF, Chemo, Hep., AIDS, mental health diagnosis, sleep apnea, morbid obesity)? @ -None Was patient admitted / discharged? Hospital course, mention meds given and route, prescriptions, significant lab abnormalities, going to OR and other pertinent info. @ -Admitted. This is a 68-year-old female with history of atrial fibrillation presenting with palpitations x 1 hour. She is on Eliquis twice daily and metoprolol. Denies chest pain. EKG reveals atrial fibrillation with RVR, rate 129 bpm. Vital signs otherwise stable. Lab work including CBC, CMP, troponin, coags unremarkable. Chest x-ray reveals no acute process. Patient was started on IV Cardizem and admitted with cardiology consultation. Case was discussed with my ED attending Dr. Pena. Undiagnosed new problem with uncertain prognosis? @ -No Drug Therapy requiring intensive monitoring for toxicity (Heparin, Nitro, Insulin, Cardizem)? @ -Yes, Cardizem Were any procedures done? @ -No Diagnosis/symptom? @ -Atrial fibrillation with RVR Acute, or Chronic, or Acute on Chronic? @ -Acute Uncomplicated (without systemic symptoms) or Complicated (systemic symptoms)? @ -Uncomplicated Side effects of treatment? @ -No Exacerbation, Progression, or Severe Exacerbation? @ -No Poses a threat to life or bodily function? How? (Chest pain, USA, NM, pneumonia, PE, COPD, DKA, ARF, appy, cholecystitis, CVA, Diverticulitis, Homicidal, Suicidal, threat to staff... and all critical care pts) @ -Yes - Lab Data Result diagrams: 06/05/24 23:32 06/05/24 23:32 Lab Results 06/05/24 06/05/24 06/05/24 Range/Units 23:32 23:32 23:32 WBC 7.4 (3.8-10.6) k/uL RBC 4.96 (3.80-5.40) m/uL Hgb 14.0 (11.4-16.0) gm/dL Hct 42.2 (34.0-46.0) % MCV 85.1 (80.0-100.0) fL MCH 28.2 (25.0-35.0) pg MCHC 33.2 (31.0-37.0) g/dL RDW 14.0 (11.5-15.5) % Plt Count 239 (150-450) k/uL MPV 8.0 Neutrophils % 54 % Lymphocytes % 34 % Monocytes % 5 % Eosinophils % 3 % Basophils % 1 % Neutrophils # 4.0 (1.3-7.7) k/uL Lymphocytes # 2.5 (1.0-4.8) k/uL Monocytes # 0.4 (0-1.0) k/uL Eosinophils # 0.2 (0-0.7) k/uL Basophils # 0.1 (0-0.2) k/uL PT 10.2 (10.0-12.5) sec INR 0.9 (<1.2) APTT 24.8 (22.0-30.0) sec Sodium 138 (137-145) mmol/L Potassium 4.0 (3.5-5.1) mmol/L Chloride 108 H (98-107) mmol/L Carbon Dioxide 23 (22-30) mmol/L Anion Gap 7 mmol/L BUN 26 H (7-17) mg/dL Creatinine 0.52 (0.52-1.04) mg/dL Est GFR (CKD-EPI)AfAm >90 (>60 ml/min/1.73 sqM) Est GFR (CKD-EPI)NonAf >90 (>60 ml/min/1.73 sqM) Glucose 155 H (74-99) mg/dL Calcium 9.5 (8.4-10.2) mg/dL Magnesium 2.0 (1.6-2.3) mg/dL Total Bilirubin 0.7 (0.2-1.3) mg/dL AST 36 (14-36) U/L ALT 41 H (4-34) U/L Alkaline Phosphatase 62 (38-126) U/L Troponin I (0.000-0.034) ng/mL Total Protein 7.3 (6.3-8.2) g/dL Albumin 4.6 (3.5-5.0) g/dL 06/05/24 Range/Units 23:32 WBC (3.8-10.6) k/uL RBC (3.80-5.40) m/uL Hgb (11.4-16.0) gm/dL Hct (34.0-46.0) % MCV (80.0-100.0) fL MCH (25.0-35.0) pg MCHC (31.0-37.0) g/dL RDW (11.5-15.5) % Plt Count (150-450) k/uL MPV Neutrophils % % Lymphocytes % % Monocytes % % Eosinophils % % Basophils % % Neutrophils # (1.3-7.7) k/uL Lymphocytes # (1.0-4.8) k/uL Monocytes # (0-1.0) k/uL Eosinophils # (0-0.7) k/uL Basophils # (0-0.2) k/uL PT (10.0-12.5) sec INR (<1.2) APTT (22.0-30.0) sec Sodium (137-145) mmol/L Potassium (3.5-5.1) mmol/L Chloride (98-107) mmol/L Carbon Dioxide (22-30) mmol/L Anion Gap mmol/L BUN (7-17) mg/dL Creatinine (0.52-1.04) mg/dL Est GFR (CKD-EPI)AfAm (>60 ml/min/1.73 sqM) Est GFR (CKD-EPI)NonAf (>60 ml/min/1.73 sqM) Glucose (74-99) mg/dL Calcium (8.4-10.2) mg/dL Magnesium (1.6-2.3) mg/dL Total Bilirubin (0.2-1.3) mg/dL AST (14-36) U/L ALT (4-34) U/L Alkaline Phosphatase (38-126) U/L Troponin I <0.012 (0.000-0.034) ng/mL Total Protein (6.3-8.2) g/dL Albumin (3.5-5.0) g/dL Disposition Clinical Impression: Atrial fibrillation with RVR Disposition: ADMITTED IP TO THIS HOSP Referrals: Alessandro Laura MD [Primary Care Provider] - 1-2 days Time of Disposition: 01:22
[2024-06-05 23:55] LABS: ALT 41 U/L (4-34); AST 36 U/L (14-36); African American GFR (CKD) >90 (>60 ml/min/1.73 sqM); Albumin 4.6 g/dL (3.5-5.0); Alkaline Phosphatase 62 U/L (38-126); Anion Gap 7 mmol/L; Blood Urea Nitrogen 26 mg/dL (7-17); Calcium 9.5 mg/dL (8.4-10.2); Carbon Dioxide 23 mmol/L (22-30); Chloride 108 mmol/L (98-107); Glucose 155 mg/dL (74-99); INR 0.9 (<1.2); Non-African American GFR(CKD) >90 (>60 ml/min/1.73 sqM); Partial Thromboplastin Time 24.8 sec (22.0-30.0); Prothrombin Time 10.2 sec (10.0-12.5); Sodium 138 mmol/L (137-145); Total Bilirubin 0.7 mg/dL (0.2-1.3); Total Protein 7.3 g/dL (6.3-8.2)
--- NOTE | 2024-06-06 00:03 | XR ---
EXAMINATION TYPE: XR chest 2V DATE OF EXAM: 06/05/2024 CLINICAL HISTORY: Dysrhythmia. TECHNIQUE: Frontal and lateral views of the chest are obtained. COMPARISON: Prior chest x-ray August 05, 2021 FINDINGS: Overlying EKG leads are redemonstrated. Overlying bra strap on current study is noted. Ther e is no suspicious new focal air space opacity, pleural effusion, or pneumothorax seen. The cardiac silhouette size remains within normal limits. The osseous structures are intact. IMPRESSION: No acute process. [facility], , 06/06/2024 12:00 AM
[2024-06-06] MEDS: DILTIAZEM 125 MG in SODIUM CHLORIDE 0.9% 100 ML IV SCH (00:31)
[2024-06-06] MEDS: DILTIAZEM DRIP BOLUS FROM BAG 1 MG SOLN IV ONE (00:32)
[2024-06-06] MEDS ORDERED: NALOXONE 0.4 MG/ML 1 ML VIAL IV PRN (01:11)
[2024-06-06] MEDS ORDERED: ACETAMINOPHEN TAB 325 MG TAB PO PRN (01:11)
[2024-06-06] MEDS: SODIUM CHLORIDE 0.9% 1,000 ML IV SCH (01:29)
[2024-06-06 02:37] VITALS: TEMP 97.6
[2024-06-06 08:38] VITALS: RESP 16
[2024-06-06] MEDS: APIXABAN 5 MG TAB PO SCH (08:44)
--- NOTE | 2024-06-06 09:17 | P.HPIM ---
History of Present Illness 68-year-old does not female came in with complaints of palpitations found to be in atrial fibrillation with rapid ventricular rate. Patient was started on Cardizem subsequently converted to sinus rhythm. Patient uses 25 mg of metopro lol patient does not have any congestive heart failure. Patient chest x-ray did not show any pulmonary edema patient is otherwise clinically doing well he is cleared by cardiology. Patient had a recent cardiac catheterization by Dr. Bustos which did not show any significant occlusive disease. REVIEW OF SYSTEMS: All other systems are negative except those mentioned in the HPI PHYSICAL EXAMINATION: GENERAL: The patient is alert and oriented x3, not in any acute distress. Well developed, well nourished. HEENT: Pupils are round and equally reacting to light. EOMI. No scleral icterus. No conjunctival pallor. Normocephalic, atraumatic. No pharyngeal erythema. No thyromegaly. CARDIOVASCULAR: S1 and S2 present. No murmurs, rubs, or gallops. PULMONARY: Chest is clear to auscultation, no wheezing or crackles. ABDOMEN: Soft, nontender, nondistended, normoactive bowel sounds. No palpable organomegaly. MUSCULOSKELETAL: No joint swelling or deformity. EXTREMITIES: No cyanosis, clubbing, or pedal edema. NEUROLOGICAL: Gross neurological examination did not reveal any focal deficits. SKIN: No rashes. Assessment and plan -Atrial fibrillation with rapid unclear rate: Presently sinus rhythm heart rate is well-controlled patient will continue on her home medications without any changes that he anticoagulation and metoprolol 25 mg daily. -Hyperlipidemia -Hypertension -Hypothyroidism -Type 2 diabetes mellitus Above-mentioned chronic medical problems patient will resume appropriate home medications Past Medical History Past Medical History: Atrial Fibrillation, COPD, Diabetes Mellitus, Hyperlipidemia, Hypertension, Thyroid Disorder Additional Past Medical History / Comment(s): BACK AND KNEE PAIN. Hx benign brain tumor and cerebral aneurysm that was stented and coiled 12/04/2018. Bilateral varicose veins. History of Any Multi-Drug Resistant Organisms: None Reported Past Surgical History: Breast Surgery, Heart Catheterization, Hysterectomy, Orthopedic Surgery, Tonsillectomy Additional Past Surgical History / Comment(s): RIGHT KNEE ARTHROSCOPY, BREAST BIOPSY X2, PARTIAL THYROIDECTOMY, stent and coil of brain aneurysm, bilateral cataract surgery, colonoscopy/polypectomy. Past Anesthesia/Blood Transfusion Reactions: No Reported Reaction, Motion Sickness Additional Past Anesthesia/Blood Transfusion Reaction / Comment(s): "GOT REALLY DIZZY" HAD TO STAY LONGER IN POST OP- YRS AGO. Past Psychological History: No Psychological Hx Reported Smoking Status: Never smoker Past Alcohol Use History: Rare Past Drug Use History: None Reported - Past Family History Mother Family Medical History: Hypertension Additional Family Medical History / Comment(s): Mitral valve repairs, heart disease. Father Family Medical History: Cancer Additional Family Medical History / Comment(s): Brain cancer. Brother(s) Family Medical History: Cancer Additional Family Medical History / Comment(s): Colon cancer. Medications and Allergies Home Medications Medication Instructions Recorded Confirmed Type Glucosam/Jadiel-Msm1/C/Keith/Bosw 2 tab PO DAILY 05/11/18 06/06/24 History [Glucosamine-Chondroitin Tablet] Multivitamin,Therapeutic [Thera] 1 tab PO DAILY 05/11/18 06/06/24 History Apixaban [Eliquis] 5 mg PO BID #30 tab 05/13/18 06/06/24 Rx Ezetimibe [Zetia] 10 mg PO DAILY #30 tab 05/13/18 06/06/24 Rx Levothyroxine Sodium [Synthroid] 50 mcg PO DAILY 09/23/19 06/06/24 History Ergocalciferol (Vitamin D2) 1,250 mcg PO TU 01/07/21 06/06/24 History [Drisdol (50,000 Iu)] Fenofibrate Nanocrystallized 145 mg PO DAILY 01/07/21 06/06/24 History [Fenofibrate] Metoprolol Succinate [Metoprolol 12.5 mg PO HS 07/27/22 06/06/24 History Succinate ER] Metoprolol Succinate [Toprol XL] 25 mg PO DAILY 07/27/22 06/06/24 History hydroCHLOROthiazide 12.5 mg PO DAILY 07/27/22 06/06/24 History icosapent ethyL [Icosapent Ethyl] 2 gm PO BID 07/27/22 06/06/24 History Clobetasol Propionate [Temovate 1 applic TOPICAL DAILY PRN 06/06/24 06/06/24 History 0.05% Oint] Magnesium Taurate 400mg 800 mg PO DAILY 06/06/24 06/06/24 History lisinopriL [Zestril] 20 mg PO HS 06/06/24 06/06/24 History Allergies Allergy/AdvReac Type Severity Reaction Status Date / Time COVID-19 (SARS-CoV-2) Allergy Unknown Verified 06/06/24 08:56 vaccine, armando Iodinated Contrast Media Allergy Anaphylaxis, Verified 06/06/24 08:56 [Iodinated Contrast Media - itching IV Dye] Penicillins Allergy Unknown Verified 06/06/24 08:56 Childhood dapagliflozin [From Farxiga] AdvReac Vaginal Verified 06/06/24 08:56 Infection hydrocodone bitartrate AdvReac dizzyness, Verified 06/06/24 08:56 [From Vicodin] flushed,unable to stand metformin AdvReac Nausea & Verified 06/06/24 08:56 Vomiting & Diarrhea Physical Exam Vitals: Vital Signs Temp Pulse Resp BP Pulse Ox 06/06/24 08:38 68 16 138/86 98 06/06/24 07:50 61 20 121/69 100 06/06/24 05:42 57 L 15 123/75 95 06/06/24 03:04 61 15 131/84 97 06/06/24 02:30 97.6 F 96 15 92/60 93 L 06/06/24 02:00 107 H 14 117/83 95 06/06/24 01:30 116 H 19 119/93 95 06/06/24 01:00 93 20 122/97 95 06/06/24 00:30 125 H 17 131/101 95 06/06/24 00:07 129 H 20 146/99 96 06/05/24 23:08 97.4 F L 69 20 171/86 98 Intake and Output 06/05/24 06/06/24 06/06/24 22:59 06:59 14:59 Other: Weight 95.254 kg Results CBC & Chem 7: 06/05/24 23:32 06/05/24 23:32 Labs: Abnormal Lab Results - Last 24 Hours (Table) 06/05/24 Range/Units 23:32 Chloride 108 H (98-107) mmol/L BUN 26 H (7-17) mg/dL Glucose 155 H (74-99) mg/dL ALT 41 H (4-34) U/L
--- NOTE | 2024-06-06 09:18 | P.DS ---
Providers Date of admission: 06/06/24 01:15 Attending physician: Randee Antonio Consults: 06/06/24 01:11 Consult Physician Urgent Consulting Provider: [facility] Consult Reason/Comments: Atrial fibrillation with RVR Do you want consulting provider notified?: Yes Primary care physician: [facility] Course: 68-year-old does not female came in with complaints of palpitations found to be in atrial fibrillation with rapid ventricular rate. Patient was started on Cardizem subsequently converted to sinus rhythm. Patient uses 25 mg of metoprolol patient does not have any congestive heart failure. Patient chest x- ray did not show any pulmonary edema patient is otherwise clinically doing well he is cleared by cardiology. Patient had a recent cardiac catheterization by Dr. Bustos which did not show any significant occlusive disease. REVIEW OF SYSTEMS: All other systems are negative except those mentioned in the HPI PHYSICAL EXAMINATION: GENERAL: The patient is alert and oriented x3, not in any acute distress. Well developed, well nourished. HEENT: Pupils are round and equally reacting to light. EOMI. No scleral icterus. No conjunctival pallor. Normocephalic, atraumatic. No pharyngeal erythema. No thyromegaly. CARDIOVASCULAR: S1 and S2 present. No murmurs, rubs, or gallops. PULMONARY: Chest is clear to auscultation, no wheezing or crackles. ABDOMEN: Soft, nontender, nondistended, normoactive bowel sounds. No palpable organomegaly. MUSCULOSKELETAL: No joint swelling or deformity. EXTREMITIES: No cyanosis, clubbing, or pedal edema. NEUROLOGICAL: Gross neurological examination did not reveal any focal deficits. SKIN: No rashes. Assessment and plan -Atrial fibrillation with rapid unclear rate: Presently sinus rhythm heart rate is well-controlled patient will continue on her home medications without any changes that he anticoagulation and metoprolol 25 mg daily. -Hyperlipidemia -Hypertension -Hypothyroidism -Type 2 diabetes mellitus Plan - Discharge Summary New Discharge Prescriptions: No Action Multivitamin,Therapeutic [Thera] 1 tab PO DAILY Glucosam/Jadiel-Msm1/C/Keith/Bosw [Glucosamine-Chondroitin Tablet] 2 tab PO DAILY Apixaban [Eliquis] 5 mg PO BID #30 tab Ezetimibe [Zetia] 10 mg PO DAILY #30 tab Levothyroxine Sodium [Synthroid] 50 mcg PO DAILY Ergocalciferol (Vitamin D2) [Drisdol (50,000 Iu)] 1,250 mcg PO TU Fenofibrate Nanocrystallized [Fenofibrate] 145 mg PO DAILY Metoprolol Succinate [Metoprolol Succinate ER] 12.5 mg PO HS Metoprolol Succinate [Toprol XL] 25 mg PO DAILY icosapent ethyL [Icosapent Ethyl] 2 gm PO BID lisinopriL [Zestril] 20 mg PO HS Magnesium Taurate 400mg 800 mg PO DAILY hydroCHLOROthiazide 12.5 mg PO DAILY Clobetasol Propionate [Temovate 0.05% Oint] 1 applic TOPICAL DAILY PRN PRN Reason: Skin Irritation Discharge Medication List Glucosam/Jadiel-Msm1/C/Keith/Bosw [Glucosamine-Chondroitin Tablet] 2 tab PO DAILY 05/11/18 [History] Multivitamin,Therapeutic [Thera] 1 tab PO DAILY 05/11/18 [History] Apixaban [Eliquis] 5 mg PO BID #30 tab 05/13/18 [Rx] Ezetimibe [Zetia] 10 mg PO DAILY #30 tab 05/13/18 [Rx] Levothyroxine Sodium [Synthroid] 50 mcg PO DAILY 09/23/19 [History] Ergocalciferol (Vitamin D2) [Drisdol (50,000 Iu)] 1,250 mcg PO TU 01/07/21 [History] Fenofibrate Nanocrystallized [Fenofibrate] 145 mg PO DAILY 01/07/21 [History] Metoprolol Succinate [Metoprolol Succinate ER] 12.5 mg PO HS 07/27/22 [History] Metoprolol Succinate [Toprol XL] 25 mg PO DAILY 07/27/22 [History] hydroCHLOROthiazide 12.5 mg PO DAILY 07/27/22 [History] icosapent ethyL [Icosapent Ethyl] 2 gm PO BID 07/27/22 [History] Clobetasol Propionate [Temovate 0.05% Oint] 1 applic TOPICAL DAILY PRN 06/06/24 [History] Magnesium Taurate 400mg 800 mg PO DAILY 06/06/24 [History] lisinopriL [Zestril] 20 mg PO HS 06/06/24 [History] Follow up Appointment(s)/Referral(s): Jr Solorzano MD [STAFF PHYSICIAN] - 1 Week Alessandro Laura MD [Primary Care Provider] - 3 Days Discharge Disposition: HOME SELF-CARE
--- NOTE | 2024-06-06 10:18 | P.CRDCN ---
History of Present Illness Consult date: 06/06/24 Reason for Consult (text): A-fib with RVR History of present illness: This is a 68-year-old female patient of Dr. Solorzano with PMH of hypertension, hyperlipidemia, diabetes, coronary artery disease, paroxysmal atrial fibrillation, PVCs. We have been asked to evaluate the patient for A-fib with RVR. Patient gives history that yesterday she was laying in bed and she went into A-fib with RVR. She states she was busy all day helping a friend that recently had a CVA and did a significant amount of lifting and physical activity. She had pain in her chest that lasted only for couple seconds and she was not concerned about that. She was watching TV then she got up to the bathroom went back to lay down and she was having palpitations. She checked her Apple Watch and her numbers were jumping all over. She did an EKG on her Apple Watch and it said that she was in atrial fibrillation. She called her granddaughter and was brought into the emergency center for evaluation. Patient presented with A-fib with heart rate 129. She has subsequently converted to sinus rhythm. Patient does state that her heart rate goes down to the 30s in t he nighttime. She denies any alcohol use. No fever or chills. No cough. She feels like she is back to normal. She was initially diagnosed with atrial fibrillation in 2017. She had a second episode in July 2019 and has not had any episodes since then. -EKG: Atrial fibrillation 129 bpm, #2 sinus rhythm 57 bpm -Chest x-ray: Acute process -Laboratory studies: No -Home cardiac medications: Eliquis 5 mg twice daily, Zetia 10 mg daily, fenofibrate 145 mg daily, hydrochlorothiazide 12.5 mg daily, lisinopril 20 mg at bedtime, metoprolol succinate 12.5 mg at bedtime, metoprolol succinate 25 mg daily, also on levothyroxine 50 mcg daily. -Cardiac catheterization 2017: Minimal CAD -Echocardiogram performed/03/2022 revealed normal EF, mild to moderate TR, mild to moderate MR. Review Of Systems: At the time of my exam: CONSTITUTIONAL: Denies fever or chills. HEENT: Denies blurred vision, vision changes, or eye pain. Denies hemoptysis CARDIOVASCULAR: Denies chest pain. Denies orthopnea. Denies PND. Denies palpitations RESPIRATORY: Denies shortness of breath. GASTROINTESTINAL: Denies abdominal pain. Denies nausea or vomiting. HEMATOLOGIC: Denies bleeding disorders. GENITOURINARY: Denies any blood in urine. SKIN: Denies puritis. Denies rash. Physical examination: Gen: This is 68-year-old female in no acute distress. VS: reviewed HEENT: Head is atraumatic, normocephalic. Pupils equal, round. Sclerae is anicteric. NECK: Supple. No JVD. LUNGS: Clear to auscultation. No wheezes or rhonchi. No intercostal retractions. HEART: Regular rate and rhythm. Systolic o murmur. ABDOMEN: Soft No tenderness. EXTREMITIES: No pedal edema. No calf tenderness. NEUROLOGICAL: Patient is awake, alert and oriented x3. Assessment: Paroxysmal atrial fibrillation presenting with RVR, converted to sinus rhythm Brief episode of chest pain Hypertension Hyperlipidemia Diabetes mellitus type 2 Plan: Resume patient's home cardiac medications No further cardiac workup at this time Patient is cleared for discharge from cardiology and may follow-up in the office with Dr. Solorzano in 1 to 2 weeks. Thank you kindly for this consultation. Nurse practitioner note has been reviewed, I agree with documented findings and plan of care. Patient was seen and examined. Past Medical History Past Medical History: Atrial Fibrillation, COPD, Diabetes Mellitus, Hype rlipidemia, Hypertension, Thyroid Disorder Additional Past Medical History / Comment(s): BACK AND KNEE PAIN. Hx benign brain tumor and cerebral aneurysm that was stented and coiled 12/04/2018. Bilateral varicose veins. History of Any Multi-Drug Resistant Organisms: None Reported Past Surgical History: Breast Surgery, Heart Catheterization, Hysterectomy, Orthopedic Surgery, Tonsillectomy Additional Past Surgical History / Comment(s): RIGHT KNEE ARTHROSCOPY, BREAST BIOPSY X2, PARTIAL THYROIDECTOMY, stent and coil of brain aneurysm, bilateral cataract surgery, colonoscopy/polypectomy. Past Anesthesia/Blood Transfusion Reactions: No Reported Reaction, Motion Sickness Additional Past Anesthesia/Blood Transfusion Reaction / Comment(s): "GOT REALLY DIZZY" HAD TO STAY LONGER IN POST OP- YRS AGO. Past Psychological History: No Psychological Hx Reported Smoking Status: Never smoker Past Alcohol Use History: Rare Past Drug Use History: None Reported - Past Family History Mother Family Medical History: Hypertension Additional Family Medical History / Comment(s): Mitral valve repairs, heart disease. Father Family Medical History: Cancer Additional Family Medical History / Comment(s): Brain cancer. Brother(s) Family Medical History: Cancer Additional Family Medical History / Comment(s): Colon cancer. Medications and Allergies Home Medications Medication Instructions Recorded Confirmed Type Glucosam/Jadiel-Msm1/C/Keith/Bosw 2 tab PO DAILY 05/11/18 06/06/24 History [Glucosamine-Chondroitin Tablet] Multivitamin,Therapeutic [Thera] 1 tab PO DAILY 05/11/18 06/06/24 History Apixaban [Eliquis] 5 mg PO BID #30 tab 05/13/18 06/06/24 Rx Ezetimibe [Zetia] 10 mg PO DAILY #30 tab 05/13/18 06/06/24 Rx Levothyroxine Sodium [Synthroid] 50 mcg PO DAILY 09/23/19 06/06/24 History Ergocalciferol (Vitamin D2) 1,250 mcg PO TU 01/07/21 06/06/24 History [Drisdol (50,000 Iu)] Fenofibrate Nanocrystallized 145 mg PO DAILY 01/07/21 06/06/24 History [Fenofibrate] Metoprolol Succinate [Metoprolol 12.5 mg PO HS 07/27/22 06/06/24 History Succinate ER] Metoprolol Succinate [Toprol XL] 25 mg PO DAILY 07/27/22 06/06/24 History hydroCHLOROthiazide 12.5 mg PO DAILY 07/27/22 06/06/24 History icosapent ethyL [Icosapent Ethyl] 2 gm PO BID 07/27/22 06/06/24 History Clobetasol Propionate [Temovate 1 applic TOPICAL DAILY PRN 06/06/24 06/06/24 History 0.05% Oint] Magnesium Taurate 400mg 800 mg PO DAILY 06/06/24 06/06/24 History lisinopriL [Zestril] 20 mg PO HS 06/06/24 06/06/24 History Allergies Allergy/AdvReac Type Severity Reaction Status Date / Time COVID-19 (SARS-CoV-2) Allergy Unknown Verified 06/06/24 08:56 vaccine, armando Iodinated Contrast Media Allergy Anaphylaxis, Verified 06/06/24 08:56 [Iodinated Contrast Media - itching IV Dye] Penicillins Allergy Unknown Verified 06/06/24 08:56 Childhood dapagliflozin [From Farxiga] AdvReac Vaginal Verified 06/06/24 08:56 Infection hydrocodone bitartrate AdvReac dizzyness, Verified 06/06/24 08:56 [From Vicodin] flushed,unable to stand metformin AdvReac Nausea & Verified 06/06/24 08:56 Vomiting & Diarrhea Physical Exam Vitals: Vital Signs Temp Pulse Resp BP Pulse Ox 06/06/24 07:50 61 20 121/69 100 06/06/24 05:42 57 L 15 123/75 95 06/06/24 03:04 61 15 131/84 97 06/06/24 02:30 97.6 F 96 15 92/60 93 L 06/06/24 02:00 107 H 14 117/83 95 06/06/24 01:30 116 H 19 119/93 95 06/06/24 01:00 93 20 122/97 95 06/06/24 00:30 125 H 17 131/101 95 06/06/24 00:07 129 H 20 146/99 96 06/05/24 23:08 97.4 F L 69 20 171/86 98 Intake and Output 06/05/24 06/06/24 06/06/24 22:59 06:59 14:59 Other: Weight 95.254 kg Results 06/05/24 23:32 06/05/24 23:32 Cardiac Enzymes 06/05/24 06/05/24 Range/Units 23:32 23:32 AST 36 (14-36) U/L Troponin I <0.012 (0.000-0.034) ng/mL Coagulation 06/05/24 Range/Units 23:32 PT 10.2 (10.0-12.5) sec APTT 24.8 (22.0-30.0) sec CBC 06/05/24 Range/Units 23:32 WBC 7.4 (3.8-10.6) k/uL RBC 4.96 (3.80-5.40) m/uL Hgb 14.0 (11.4-16.0) gm/dL Hct 42.2 (34.0-46.0) % Plt Count 239 (150-450) k/uL Comprehensive Metabolic Panel 06/05/24 Range/Units 23:32 Sodium 138 (137-145) mmol/L Potassium 4.0 (3.5-5.1) mmol/L Chloride 108 H (98-107) mmol/L Carbon Dioxide 23 (22-30) mmol/L BUN 26 H (7-17) mg/dL Creatinine 0.52 (0.52-1.04) mg/dL Glucose 155 H (74-99) mg/dL Calcium 9.5 (8.4-10.2) mg/dL AST 36 (14-36) U/L ALT 41 H (4-34) U/L Alkaline Phosphatase 62 (38-126) U/L Total Protein 7.3 (6.3-8.2) g/dL Albumin 4.6 (3.5-5.0) g/dL Current Medications Generic Name Dose Route Start Last Admin Trade Name Freq PRN Reason Stop Dose Admin Acetaminophen 650 mg 06/06/24 01:11 Acetaminophen Tab 325 Mg Tab PO Q6HR PRN Mild Pain or Fever > 100.5 Apixaban 5 mg 06/06/24 09:00 Apixaban 5 Mg Tab PO BID JAYDA Protocol Diltiazem HCl 125 mg/ Sodium 125 mls @ 5 mls/hr 06/06/24 00:15 06/06/24 00:31 Chloride IV 5 mg/hr .Q24H JAYDA 5 mls/hr Administration 5 MG/HR Sodium Chloride 1,000 mls @ 75 mls/hr 06/06/24 01:15 06/06/24 01:29 Saline 0.9% IV 75 mls/hr .[id number] JAYDA Administration Naloxone HCl 0.2 mg 06/06/24 01:11 Naloxone 0.4 Mg/Ml 1 Ml Vial IV Q2M PRN Opioid Reversal Intake and Output 06/05/24 06/06/24 06/06/24 22:59 06:59 14:59 Other: Weight 95.254 kg 06/05/24 23:32 06/05/24 23:32
[2024-06-06 10:31] VITALS: BP 110/56; PULSE 65
== END 2024-06-06 10:45 | disposition home or self-care (01) | DRG 310 ==
LOC: EC 23:07 → 3SCARD 06-06 01:15
PROVIDERS: ADMIT Hospitalist; ATTEND Hospitalist
DX: I48.0 Paroxysmal atrial fibrillation (principal); I08.1 Rheumatic disorders of both mitral and tricuspid valves; E03.9 Hypothyroidism, unspecified; E11.9 Type 2 diabetes mellitus without complications; E78.5 Hyperlipidemia, unspecified; I10 Essential (primary) hypertension; I25.10 Atherosclerotic heart disease of native coronary artery without angina pectoris; J44.9 Chronic obstructive pulmonary disease, unspecified; Z79.899 Other long term (current) drug therapy; Z79.01 Long term (current) use of anticoagulants; Z79.890 Hormone replacement therapy; Z82.49 Family history of ischemic heart disease and other diseases of the circulatory system; Z86.011 Personal history of benign neoplasm of the brain; Z86.73 Personal history of transient ischemic attack (TIA), and cerebral infarction without residual deficits; Z90.710 Acquired absence of both cervix and uterus; Z98.42 Cataract extraction status, left eye; Z98.41 Cataract extraction status, right eye; Z88.0 Allergy status to penicillin; Z88.8 Allergy status to other drugs, medicaments and biological substances; Z88.7 Allergy status to serum and vaccine; Z91.041 Radiographic dye allergy status
CPT/HCPCS: 36415; 71046; 80053; 83735; 84484; 85025; 85610; 85730; 93005; 96361; 96365; 96366; 99291